=== PATIENT | female | born 1945 | race Caucasian/White ===

== ENCOUNTER 2023-01-02 03:53 | Inpatient (IN) | payer OTHER, SELFPAY ==
[2023-01-02] VITALS (23 sets, daily range): BP systolic 101–129; BP diastolic 66–82; PULSE 86–103; RESP 12–30; TEMP 36.2–36.9; O2SAT 86–99; BMI 29.2; BMI 28.1
--- NOTE | 2023-01-02 04:18 | CT_ITS ---
INDICATION: chest pain EXAMINATION: CTA CHEST, ABDOMEN AND PELVIS WITH CONTRAST TECHNIQUE: A CTA of the chest, abdomen, and pelvis is obtained with sagittal and coronal reconstructed MIP views. Three-dimensional surface rendered sequence of the thoracic and abdominal aorta was obtained. A radiation dose optimization technique was used for this scan. IV Contrast: IV 100mL Isovue-370 Oral contrast: None. RADIATION DOSAGE (If Supplied By Facility): CTDIvol = ( 17.45 ) mGy, DLP = ( 1018.37 ) mGycm COMPARISON: None, FINDINGS: ---CHEST: LUNGS: Hazy opacities throughout the lungs with septal thickening. Dependent atelectasis in the lower lobes. Consolidation in the right middle lobe Material within the trachea likely secretions. PLEURA: Small bilateral pleural effusions. No pneumothorax. PULMONARY VESSELS: No pulmonary emboli identified. MEDIASTINUM: Several mildly enlarged lymph nodes in the mediastinum and hilar regions. A few calcified lymph nodes in the mediastinum. HEART: Enlarged. Coronary artery calcifications. AORTA/GREAT VESSELS: Thoracic aorta is normal caliber. Maximal transverse diameter 3.3 cm at the ascending aorta. No aneurysm or dissection. BONES/SOFT TISSUES: No acute findings. OTHER: None. ---ABDOMEN AND PELVIS: AORTA: Normal caliber. No dissection. Atherosclerotic calcifications including at the origins of the major branches. CELIAC ARTERY: Unremarkable. SMA: Unremarkable. RENAL ARTERIES: Unremarkable. GINNY: Unremarkable. ILIAC ARTERIES: Unremarkable. RETROPERITONEUM: Unremarkable. LIVER: Unremarkable. GALLBLADDER/BILE DUCTS: Gallbladder is surgically absent. PANCREAS: Unremarkable. SPLEEN: Unremarkable. ADRENAL GLANDS: Unremarkable. KIDNEYS/URETERS: Unremarkable. BOWEL/MESENTERY: No bowel obstruction. APPENDIX: Not identified. PERITONEUM: No free air. No free fluid. REPRODUCTIVE ORGANS: Unremarkable. BLADDER: Unremarkable. BONES/SOFT TISSUES: No acute abnormality. OTHER: None. CT/CTA Chst, Abd, Pel W and/or WO IMPRESSION: 1. No aortic aneurysm or dissection. 2. No evidence of pulmonary emboli. 3. Findings consistent with pulmonary edema with small bilateral pleural effusions. 4. More focal consolidation right middle lobe suggest possible superimposed pneumonia. CT imaging follow-up recommended after treatment in 6-8 weeks to confirm resolution. 5. No acute intra-abdominal findings. Electronically Signed: Lizz Robert MD at 6:18 EST ,
[2023-01-02] MEDS: 0.9% Normal Saline (500mL Bag) 500 ML 999 ML IV (04:43)
[2023-01-02] MEDS: Morphine 2 MG/ML Syringe IV (04:44)
[2023-01-02] MEDS: Ondansetron 4 MG/2 ML Vial IV (04:44)
[2023-01-02 04:56] LABS: Absolute Lymphocyte Count 2.14 X10^3/uL (0.83-4.51); Absolute Neutrophil Count 14.4 X10^3/uL (2.0-7.7); Basophil# 0.05 X10^3/uL; Basophil% 0.3 % (0-1); Eosinophil# 0.07 X10^3/uL; Eosinophils% 0.4 % (0-5); Hematocrit 40.5 % (37-47); Hemoglobin 13.4 g/dL (12.0-15.0); Lymphocyte # 2.14 X10^3/ul (0.83-4.51); Mean Corp Hgb Conc 33.1 g/dL (32-36); Mean Corpuscular Hgb 30.7 pg (27.0-32.0); Mean Corpuscular Volume 92.9 fL (81-99); Mean Platelet Vol. 10.5 fl (6.2-12.0); Monocyte# 1.02 X10^3/uL; Monocyte% 5.7 % (0-10); NRBC Flagged by Analyzer 0 % (0-5); Neutrophil # 14.39 X10^3/uL (2.7-7.7); Platelet Count 330 K/mm3 (150-450); RBC Distribution Width CV 12.6 % (11.6-14.6); RBC Distribution Width SD 43.1 fl (35.1-43.9); Red Blood Count 4.36 M/mm3 (4.2-5.4); White Blood Count 17.8 K/mm3 (4.4-11.0)
[2023-01-02 05:06] LABS: International Normalized Ratio 1.1; Partial Thromboplast Time 28.5 Seconds (24.1-36.2); Prothrombin Time (Protime)PT. 14.3 SECONDS (11.7-14.9)
[2023-01-02 05:25] LABS: BNP,B-Type NATRIURETIC PEPTIDE 279.2 pg/mL (0-100)
[2023-01-02 05:27] LABS: AST(SGOT) 29 U/L (15-37); Alanine Aminotransfer ALT/SGPT 37 U/L (13-56); Albumin, Serum 3.3 g/dL (3.2-5.0); Alkaline Phosphatase 114 U/L (45-117); Anion Gap 9 (5-15); BUN 17 mg/dL (7-18); BUN/Creat Ratio 23.2 RATIO (10-20); Bilirubin, Direct 0.23 mg/dL (0.00-0.30); Calcium,Total 9.3 mg/dL (8.5-10.1); Chloride 103 mmol/L (98-107); Creatinine, Serum 0.73 mg/dL (0.55-1.02); EST Glomerular Filtration Rate 82 mL/min (>60); Est Glom Filt Rate - Afr Amer 99 mL/min (>60); Estimated Creatinine Clearance 36.67 ml/min; Globulin 4.5 g/dL (2.2-4.2); Glucose 261 mg/dL (74-106); Lipase 22 U/L (13-75); Magnesium 1.8 mg/dL (1.6-2.6); Potassium 3.7 mmol/L (3.5-5.1); Protein, Total 7.8 g/dL (6.4-8.2); Sodium Level 137 mmol/L (136-145); Troponin-I HS 1739 pg/mL (3.0-54.0)
--- NOTE | 2023-01-02 05:55 | CPS ---
decreased fio2 50%
--- NOTE | 2023-01-02 06:08 | CPS ---
decreased fio2 to 40%
--- NOTE | 2023-01-02 06:09 | EX.ED.DYSGE1 ---
HPI History of Present Illness Chief Complaint: Chest Pain Informant: patient, spouse/S.O. and EMS Narrative Narrative: Patient is a 77-year-old female brought in by EMS secondary to chest pain. Patient and state that for the past 1 to 2 weeks she has had a cold. states that they were in [place] seeing family this past week and they drove home between the hours of 1 PM and 8 PM this evening. states they were walking in the house when the patient collapsed. Patient states that she did not pass out but fell/collapse because she was feeling weak. Has reports they gave her some time to see if rest would improve her symptoms and they did not do so and therefore called EMS. Patient complains of chest pain that begins around her upper abdomen and extends upward to the midline of the chest she reports feeling nauseous without vomiting as well as feeling short of breath. She denies any need for supplemental oxygen or history of lung disorder at home. Reportedly EMS gave 3 nitro without any symptom improvement for the patient [facility] Home Medications BLOOD SUGAR HARMONY 1 tab PO 1XD 01/02/23 [History Last Taken Unknown] glimepiride 2 mg tablet 2 mg PO BID 01/02/23 [History Last Taken Unknown] metformin 500 mg tablet 500 mg PO DAILY 01/02/23 [History Last Taken Unknown] metoprolol tartrate 25 mg tablet 25 mg PO BID 01/02/23 [History Last Taken Unknown] omeprazole 20 mg capsule,delayed release 20 mg PO DAILY 01/02/23 [History Last Taken Unknown] Allergy/AdvReac Type Severity Reaction Status Date / Time tetanus and diphtheria Allergy Swelling Verified 01/02/23 03:59 toxoids Social History Smoking Status: Never smoker [facility] [place] ED Constitutional Constitutional ED: Denies chills or fever(s) Eyes Eyes: Denies change in vision ENT ENT ED: Denies sore throat Cardiovascular Cardiovascular: Reports chest pain; Denies palpitations or racing heartbeat Respiratory/Chest Respiratory/Chest: Reports cough and dyspnea Gastrointestinal Gastrointestinal: Reports abdominal pain and nausea; Denies diarrhea or vomiting Genitourinary Genitourinary ED: Denies dysuria Musculoskeletal Musculoskeletal: Denies myalgias Integumentary Denies rash Neurologic Neurologic: Reports weakness; Denies headache(s) Hematologic/Lymphatic Hematologic/Lymphatic: Denies easy bleeding or easy bruising EXAM Physical Exam Const Vital Signs: 01/02/23 04:00 01/02/23 04:06 01/02/23 05:47 Temperature 97.1 F L 97.1 F L Temperature Source Temporal Temporal Pulse Rate 103 H 103 H 97 Respiratory Rate 16 16 26 H Blood Pressure 121/72 H 121/72 H Blood Pressure Mean 88 88 Pulse Ox 86 94 95 Oxygen Delivery Method Nasal Cannula Nasal Cannula Oxygen Flow Rate (L/min) 2 Fraction of Inspired Oxygen (FIO2) 60 01/02/23 05:55 01/02/23 06:07 Temperature Temperature Source Pulse Rate Respiratory Rate Blood Pressure Blood Pressure Mean Pulse Ox Oxygen Delivery Method Oxygen Flow Rate (L/min) Fraction of Inspired Oxygen (FIO2) 50 40 Positive well nourished and well developed General Appearance ED: well developed and pallor HEENT HEENT Narrative: Normocephalic atraumatic No tongue or lip swelling no oral lesions no airway edema or compromise Eyes PERRL and EOMs intact bilaterally General Eye ED: Yes pale conjunctiva; Negative for scleral icterus Neck supple and no JVD Neck Narrative: No nuchal rigidity or meningeal signs noted Chest Wall Chest Narrative: Patient has reproducible pain with palpation of the sternum however she states this pain is different than the pain that brought her into the ER. There is no bony deformity or crepitance noted Resp Resp Narrative: Patient is tachypneic with accessory muscle use. Breath sounds are diminished throughout with crackles in the bilateral bases Cardio regular rhythm Rate: tachycardic and other Other Details: Slightly tachycardic rate with regular rhythm. Radial and carotid pulses are equal and symmetric GI GI Narrative: Abdomen is soft but slightly distended with normal active bowel sounds. Patient has pain with palpation in the midepigastric region without voluntary guarding or rigidity No pulsatile mass or fluid wave No increased tympany noted Auscultation: normoactive bowel sounds Palpation: soft Extremity normal to inspection Extremity Narrative: No asymmetric edema no pitting edema negative Homans' sign bilaterally Neuro oriented x3 and CN's II-XII intact bilaterally Sensorium / Orientation: alert Psych Psych Narrative: Patient has a flat affect Skin no rashes or lesions noted Skin Narrative: Skin is pale in color capillary refill remains less than 3 seconds General Skin Exam: pallor MDM MDM MDM Narrative Medical decision making narrative: Patient presented to the ER normotensive but was slightly tachycardic and afebrile. Room air pulse ox was reportedly low at a 84% and patient had increased work of breathing with tachypnea and accessory muscle use and crackles on exam. She is extremely pale with pain occurring from the midepigastric to some of the chest and with her report of chest pain and recent travel there is concern for acute coronary syndrome versus saddle pulmonary embolus versus aortic dissection versus pneumonia versus pleural effusion versus pneumothorax versus pancreatitis as a cause of her symptoms. An EKG was obtained as she does have multiple risk factors of cardiovascular disease and it did show significant ST segment depression in multiple leads not obvious STEMI. As patient did have depression in leads V2 and V3 I did attempt a posterior EKG to assess for potential acute posterior FL but subsequent EKG did not show this. With concern for PE versus dissection a CTA was then obtained. CTA does not reveal obvious dissection or saddle PE but there is fluid was noted in the bilateral lung pineda concerning for pleural effusion versus pneumonia. Patient's white count is elevated at approximately 18 so lactic acid and blood cultures and procalcitonin were added. The patient's troponin elevated and came back at approximately 1800 and secondary to this the case was discussed with cardiology on-call Dr. Galan. At this time he recommends patient be placed on a heparin and nitro drip secondary to her pain and elevated troponin but with her complex case does not feel she needs to go emergently to [facility]. The patient was satting in the mid 90s on 2 L but began to drop her sats into the 70s and 80s despite nasal cannula oxygen so she was transitioned to BiPAP which improved her pulse ox and work of breathing. Medicine was contacted as patient will need a heparin and nitro drip as well as continued monitoring for potential heart cath or infection. Dr. Buitrago/hospitalist was contacted we discussed the case and he does agree to accept the patient to the ICU at this time. History & Record Review Discussion w/independent historian: Patient and Significant other Lab Data Attestation: I reviewed the patient's lab results. Labs: Laboratory Results - last 24 hr 01/02/23 04:25 WBC 17.8 H RBC 4.36 Hgb 13.4 Hct 40.5 MCV 92.9 MCH 30.7 MCHC 33.1 RDW Std Deviation 43.1 RDW Coeff of Rojas 12.6 Plt Count 330 MPV 10.5 Immature Gran % (Auto) 0.600 Neut % (Auto) 81.0 H Lymph % (Auto) 12.0 L Garvin % (Auto) 5.7 Eos % (Auto) 0.4 Baso % (Auto) 0.3 Absolute Neuts (auto) 14.4 H Absolute Lymphs (auto) 2.14 Nucleated RBC % 0 PT 14.3 INR 1.1 APTT 28.5 Sodium 137 Potassium 3.7 Chloride 103 Carbon Dioxide 25.0 Anion Gap 9 BUN 17 Creatinine 0.73 Estim Creat Clear Calc 36.67 Est GFR (MDRD) Af Amer 99 Est GFR (MDRD) Non-Af 82 BUN/Creatinine Ratio 23.2 H Glucose 261 H Calcium 9.3 Magnesium 1.8 Total Bilirubin 0.80 Direct Bilirubin 0.23 AST 29 ALT 37 Alkaline Phosphatase 114 Troponin I High Sens 1739 H* B-Natriuretic Peptide 279.2 H Total Protein 7.8 Albumin 3.3 Globulin 4.5 H Lipase 22 Management Discussion w/another healthcare provider: Hospitalist and Technical Specialist Critical Care Time Critical Care Time: Yes Critical care time (excluding procedures): Discussing w/Patient &/or Family/Hardboard Grinder, Discussing w/Consultants and - (Critical care time of 33 minutes) Discharge Plan Triage Chief Complaint: Chest Pain ED Provider: Marino Crabtree Dx/Rx/DC Orders Clinical Impression: Acute respiratory failure with hypoxia, Non-insulin dependent diabetes mellitus, Non-ST elevated myocardial infarction (non-STEMI), Hypertension Prescriptions: No Action omeprazole 20 mg capsule,delayed release(DR/EC) 20 mg PO DAILY metoprolol tartrate 25 mg tablet 25 mg PO BID glimepiride 2 mg tablet 2 mg PO BID Rx Instructions: 1 TAB WITH BREAKFAST, 1/2 TAB AT DINNER metformin 500 mg tablet 500 mg PO DAILY BLOOD SUGAR HARMONY 1 tab PO 1XD Rx Instructions: HERBAL SUPPLEMENT Primary Care Provider: Holland Recio Referrals: Holland Recio DO [Primary Care Provider] - Disposition Disposition: Acute Care Hospital [facility]
[2023-01-02] MEDS: Heparin Injection (Vial) 5,000 UNIT/ML VIAL 4000 UNIT IV (06:15)
[2023-01-02] MEDS: Nitroglycerin Infusion 250 ML 3 MG CONT INF (06:16)
[2023-01-02] MEDS: HEPARIN/D5w 25,000 UNITS 25,000 UNITS/250 ML IV.SOLN. 9 UNITS CONT INF (06:16)
--- NOTE | 2023-01-02 06:30 | HP.PCM.HOS_ITS ---
HPI - General General Date of Admission: 01/02/23 Date of Service: 01/02/23 Chief Complaint: Chest pain, shortness of breath HPI Narrative JUAN C TORRE, is a 77 F who presents to the emergency department with concerns of progressive shortness of breath, chest pain since last evening. CT was recently traveling back from [place] and felt extremely exhausted when she reached home. Per the she collapsed for a little bit, family thought that she was only trying to relax but there was no improvement in her energy levels. Over the last 2 weeks she has had symptoms of fatigue, occasional shortness of breath and cough. Has intermittent episodes of chest pain? Anginal symptoms. She was previously prescribed nitroglycerin sublingually about 2 weeks back for the same. Today at home she started noticing retrosternal sternal chest pain and took 2 doses of nitroglycerin sublingually but to no avail. At home she had difficulty lying flat and preferred to sit in a chair as laying flat was not her shortness of breath. In the emergency department she was hypoxic, satting in high 70s on 2 L of oxygen. There was no significant improvement in her saturation levels with inhaled oxygen and is presently on BiPAP therapy for her hypoxemia. Her EKG showed diffuse ST depression and majority of the leads and her high-sensitivity troponin is elevated. Based on this cardiology was consulted by ED and decision to start heparin and IV nitroglycerin was made. There is some improvement in her chest pain since the initiation of nitroglycerin and BiPAP. Over the last month her sugars are also not well-controlled. She is only on oral metformin and glimepiride for her diabetes. Yesterday her sugars noted at home were in the 130s. [facility] Home Medications BLOOD SUGAR HARMONY 1 tab PO 1XD 01/02/23 [History Last Taken Unknown] glimepiride 2 mg tablet 2 mg PO BID 01/02/23 [History Last Taken Unknown] metformin 500 mg tablet 500 mg PO DAILY 01/02/23 [History Last Taken Unknown] metoprolol tartrate 25 mg tablet 25 mg PO BID 01/02/23 [History Last Taken Unknown] omeprazole 20 mg capsule,delayed release 20 mg PO DAILY 01/02/23 [History Last Taken Unknown] Allergy/AdvReac Type Severity Reaction Status Date / Time tetanus and diphtheria Allergy Swelling Verified 01/02/23 03:59 toxoids Social History Smoking Status: Never smoker ROS Constitutional Constitutional: Reports change in weight, fatigue, malaise and weakness; Denies fever(s) Cardiovascular Cardiovascular: Reports chest pain, dyspnea on exertion, lightheadedness and o rthopnea Respiratory/Chest Respiratory/Chest: Reports cough, shortness of breath at rest and shortness of breath with exertion Gastrointestinal Gastrointestinal: Denies abdominal pain, coffee ground emesis, constipation, diarrhea, dyspepsia, hematemesis, hematochezia, loose stools, melena, nausea, vomiting or other Genitourinary Genitourinary: Denies burning urination, difficulty urinating, dysuria, hematuria, nocturia, urinary frequency, urinary hesitancy, urinary incontinence, urinary urgency or other Musculoskeletal Musculoskeletal: Denies arthralgias, back pain, joint pain, joint stiffness, marcos int swelling, myalgias, neck pain or other Neurologic Neurologic: Denies abnormal gait, abnormal speech, confusion, disequilibrium, dizziness, focal weakness, headache(s), numbness, paresthesias, seizure-like activity, seizures, syncope, tingling, tremor(s) or other Psychiatric Psychiatric: Denies anxiety, depression, homicidal ideation, suicidal ideation or other Vital Signs Vital Signs Vital Signs: 01/02/23 04:00 01/02/23 04:06 01/02/23 05:47 Temperature 97.1 F L 97.1 F L Temperature Source Temporal Temporal Pulse Rate 103 H 103 H 97 Respiratory Rate 16 16 26 H Blood Pressure 121/72 H 121/72 H Blood Pressure Mean 88 88 Blood Pressure Position Blood Pressure Location Pulse Ox 86 94 95 Oxygen Delivery Method Nasal Cannula Nasal Cannula Oxygen Flow Rate (L/min) 2 Fraction of Inspired Oxygen (FIO2) 60 01/02/23 05:55 01/02/23 06:16 01/02/23 06:07 Temperature Temperature Source Pulse Rate 102 H Respiratory Rate Blood Pressure 129/75 H Blood Pressure Mean 93 Blood Pressure Position Sitting Blood Pressure Location Right Arm Pulse Ox Oxygen Delivery Method Oxygen Flow Rate (L/min) Fraction of Inspired Oxygen (FIO2) 50 40 Weight Weight: 160 lb 4.417 oz Body Mass Index (BMI) 29.2 Physical Exam Const alert and oriented x3 Constitutional Narrative: Drowsy and lethargic HEENT normocephalic Resp Auscultation: rales bilateral Cardio regular rate GI normal to inspection, nondistended, normoactive bowel sounds, soft to palpation, non-tender, non-distended and hepatosplenomegaly Extremity normal to inspection Extremity Narrative: No pedal edema present Neuro oriented x3 Results Medical Records Data Attestation: I reviewed the patient's medical records Lab / Micro Data Attestation: I reviewed the patient's lab results. 01/02/23 04:25 01/02/23 04:25 Labs: Laboratory Results - last 24 hr 01/02/23 04:25: WBC 17.8 H, RBC 4.36, Hgb 13.4, Hct 40.5, MCV 92.9, MCH 30.7, MCHC 33.1, RDW Std Deviation 43.1, RDW Coeff of Rojas 12.6, Plt Count 330, MPV 10.5, Immature Gran % (Auto) 0.600, Neut % (Auto) 81.0 H, Lymph % (Auto) 12.0 L, [place] % (Auto) 5.7, Eos % (Auto) 0.4, Baso % (Auto) 0.3, Absolute Neuts (auto) 14.4 H, Absolute Lymphs (auto) 2.14, Nucleated RBC % 0, PT 14.3, INR 1.1, APTT 28.5, Sodium 137, Potassium 3.7, Chloride 103, Carbon Dioxide 25.0, Anion Gap 9, BUN 17, Creatinine 0.73, Estim Creat Clear Calc 36.67, Est GFR (MDRD) Af Amer 99, Est GFR (MDRD) Non-Af 82, BUN/Creatinine Ratio 23.2 H, Glucose 261 H, Calcium 9.3, Magnesium 1.8, Total Bilirubin 0.80, Direct Bilirubin 0.23, AST 29, ALT 37, Alkaline Phosphatase 114, Troponin I High Sens 1739 H*, B-Natriuretic P eptide 279.2 H, Total Protein 7.8, Albumin 3.3, Globulin 4.5 H, Lipase 22 Rhythm Strip Rhythm Strip: Sinus Rhythm Imagaing Radiology Impression Chest/Abdomen/Pelvis CTA 01/02/23 04:18 IMPRESSION: 1. No aortic aneurysm or dissection. 2. No evidence of pulmonary emboli. 3. Findings consistent with pulmonary edema with small bilateral pleural effusions. 4. More focal consolidation right middle lobe suggest possible superimposed pneumonia. CT imaging follow-up recommended after treatment in 6-8 weeks to confirm resolution. 5. No acute intra-abdominal findings. Electronically Signed: Lizz Robert MD at 6:18 EST , Assessment & Plan Assessment/Plan (1) Acute respiratory failure with hypoxia: PLAN: He presents with acute respiratory failure, in the setting of bilateral pulmonary edema and features of right middle lobe consolidation on CT scan. Has based on her symptoms ongoing for the last 2 weeks it is likely that she has community-acquired pneumonia that followed a viral infection. Will start her on BiPAP therapy, shift to ICU, bronchopulmonary hygiene, close monitoring of her vitals. (2) Non-ST elevated myocardial infarction (non-STEMI): PLAN: There is diffuse ST depression in all her leads, this is in the setting of pneumonia, but there seems to be an overlap with acute heart failure based on the bilateral pleural effusion, orthopnea. We would get echocardiogram to further evaluate. Cardiology has been consulted for need for any interventions. (3) Non-insulin dependent diabetes mellitus: PLAN: Based on the history blood sugars not well-controlled over the last month, would get A1c levels and start her on insulin sliding scale during her hospitalization. Will plan for endocrinology follow-up as an outpatient. (4) Right middle lobe pneumonia: QUALIFIERS: Pneumonia type: due to unspecified organism Qualified Code(s): J18.9 - Pneumonia, unspecified organism PLAN: The clinical history of fatigue, fever, progressive shortness of breath over 2 weeks is consistent with committee acquired pneumonia. She has right middle lobe consolidation on her CT scan. We will continue azithromycin plus ceftriaxone at this time. If there is no improvement but plan to escalate antibiotics to beta-lactam's.
[2023-01-02 06:36] LABS: Lactic Acid 1.9 mmol/L (0.4-1.9)
[2023-01-02] MEDS: Ceftriaxone 1 GM/50 ML BAG IV ×2 (06:44→21:06)
[2023-01-02 07:30] LABS: Base Excess -5 mmol/L (-2 to +2); Bicarbonate 19.9 mmol/L (22-26); Blood Gas Specimen Type ART; Comment 16/8; Mode BiLevel; O2 Delivery Device BiPAP; PO2 79 mmHG (75-100); SITE R Brach; SO2 96 % (95-99); Total Carbon Dioxide 21 mmol/L; pCO2 31.5 mmHg (35-45); pH 7.41 (7.35-7.45)
[2023-01-02 07:36] LABS: Procalcitonin 0.07 ng/mL (0.00-0.09)
[2023-01-02] MEDS: Azithromycin 500 MG in Dextrose 5%-Water (250mL Bag) 250 ML 250 MG IV ×2 (07:40→21:56)
--- NOTE | 2023-01-02 07:50 | NURSING ---
Pt. states she has no medical history. Pt. states she takes the current home medications but not sure why she takes them.
--- NOTE | 2023-01-02 08:33 | EX.PCM.CONCC ---
Assessment & Plan Assessment/Plan (1) Acute respiratory failure with hypoxia: (2) Right middle lobe pneumonia: QUALIFIERS: Pneumonia type: due to unspecified organism Qualified Code(s): J18.9 - Pneumonia, unspecified organism (3) Hypertension: QUALIFIERS: Hypertension type: primary hypertension Qualified Code(s): I10 - Essential (primary) hypertension (4) Non-ST elevated myocardial infarction (non-STEMI): PLAN: Plan RECOMMENDATIONS: 1. Continue empiric antibiotics pending cultures 2. Challenge with diuretics 3. Obtain echocardiogram 4. Continue nitroglycerin and heparin drips 5. Await cardiology recommendations 6. Continue BiPAP with sleep and rescue IMPRESSIONS: 1. Acute hypoxic respiratory failure Patient CT scan does show an area of increased density in the right middle lobe, but the majority of the CT scan is consistent with pulmonary edema. Patient does have a slightly elevated BNP. Unfortunately, there is no echocardiogram available for review. This will be ordered. Patient should continue on empiric antibiotics pending cultures given increased density in the right middle lobe until cultures are available. Will challenge patient with diuretics. Patient is on a heparin and nitroglycerin drip. Continue to wean supplemental oxygen as tolerated. Patient should likely continue with BiPAP with sleep and rescue during the day until condition stabilizes. Patient is clear that she does not want to be intubated. 2. Non-ST elevation KS Patient with significant elevation of troponins, but was found to be significantly hypoxic by EMS. It is unclear if this represents supply demand mismatch or an NSTEMI. Patient does have a clinical history consistent with possible NSTEMI. Cardiology has been consulted. Patient is currently on a nitroglycerin and heparin drip. Troponins will be trended. Echocardiogram has been ordered. Patient is on telemetry. 3. Diabetes mellitus/hypertension/GERD/advanced age Complicates care, management, recovery and prognosis. Okay to continue with beta-gemini for now. Monitor for blood sugar control with sliding scale insulin. Elevated blood sugars may be secondary to acute infection, but procalcitonin is low at this time. HPI Consult Data Date of Consult: 01/02/23 HPI Narrative Reason for Consultation: Hypoxic respiratory failure HPI Narrative: JUAN C TORRE is a 77 F, with past medical history listed below, who presents to [facility] 01/02[facility]2023 secondary to progressive chest pain. Patient reportedly has had some URI symptoms for the past 1 to 2 weeks with a cough productive of thick or green sputum. Patient states that this was very low in volume. Patient did not report any concomitant sinus congestion. Patient recently went to [place] for the holiday and upon returning home collapsed. Patient was reportedly profoundly weak, but did not have a loss of consciousness. Patient had reported the chest pain that was 7-8 out of 10 described as a heaviness with radiation to her right jaw and arm. Patient had reported some concomitant nausea, but no vomiting. Patient also reported feeling short of breath. Patient was given 3 nitro by EMS with no improvement, so was transported to the ER for evaluation. In the ER, patient was afebrile, but tachycardic at 103 bpm. Patient was noted to be 86% despite nasal cannula. Laboratory workup showed a white blood cell count of 17.8, hemoglobin of 13.4 and platelets of 330. Coagulation studies were within normal limits. Chemistries were relatively unremarkable except for a slightly elevated bicarbonate of 25 and a glucose of 261. Troponin was elevated at 1739 and BNP was elevated at 279. Liver studies were within normal limits. Cardiology was contacted and the patient was placed on a nitroglycerin drip and heparin. Given patient's oxygenation status, she was placed on BiPAP for short period of time. On arrival to the intensive care unit, patient had an ABG showing adequate oxygenation and ventilation. Patient was transitioned to 6 L nasal cannula. Patient is not hypotensive and no fevers have been noted. Patient has not had any significant cough. Patient denies any history of previous lung disorders. Patient states that she is not a smoker and does not use any inhalers. Patient has not seen a talent development specialist previously. Patient does state that she has had her gallbladder and appendix removed and did not require oxygen postoperatively. Patient does admit that she had a holiday meal, but states that she did not eat that much secondary to not feeling well. Patient has not had any significant lower extremity edema. Patient denies any trauma. Patient has noted that her blood sugars have trended up recently. Review of systems otherwise negative from a constitutional, HEENT, respiratory, cardiovascular, GI, genitourinary, musculoskeletal, skin, neurologic, psychiatric and hematologic system unless stated above. [facility] Medical History Pre-diabetes Home Medications BLOOD SUGAR HARMONY 1 tab PO 1XD 11/25/23 [History Last Taken Unknown] glimepiride 2 mg tablet 2 mg PO BID 01/02/23 [History Last Taken Unknown] metformin 500 mg tablet 500 mg PO DAILY 01/02/23 [History Last Taken Unknown] metoprolol tartrate 25 mg tablet 25 mg PO BID 01/02/23 [History Last Taken Unknown] omeprazole 20 mg capsule,delayed release 20 mg PO DAILY 01/02/23 [History Last Taken Unknown] Allergy/AdvReac Type Severity Reaction Status Date / Time tetanus and diphtheria Allergy Swelling Verified 01/02/23 03:59 toxoids Surgical History History of appendectomy Hx of cholecystectomy Social History Smoking Status: Never smoker ROS ROS Narrative See HPI Physical Exam Const alert and oriented x3 Constitutional Narrative: On nasal cannula during my evaluation. Periodic nonproductive cough noted General Appearance: Negative for in distress HEENT normocephalic and head/scalp atraumatic; Negative for moist oral mucous membranes Eyes PERRL, EOMs intact bilaterally and conjunctivae normal Neck full ROM Lymph Lymphatic: no lymphadenopathy noted Chest inspection of chest normal Resp Effort and Inspection: tachypneic Auscultation: rales diffuse; Negative for rhonchi or wheezes Cardio regular rhythm, S1 normal heart sound, S2 normal heart sound, no murmurs, no rub, no gallops and no JVD Rate: tachycardic GI normal to inspection, nondistended, normoactive bowel sounds Extremity General Extremity: edema; Negative for clubbing Skin no rashes or lesions noted Neuro oriented x3 and CN's II-XII intact bilaterally Psych cooperative and affect normal Medical Records Data Attestation: I reviewed the patient's medical records Medical records narrative: Patient does not have any previous echocardiogram or PFT Lab / Micro Data Attestation: I reviewed the patient's lab results. 01/02/23 04:25 01/02/23 04:25 Labs: Laboratory Results - last 24 hr 01/02/23 04:25: WBC 17.8 H, RBC 4.36, Hgb 13.4, Hct 40.5, MCV 92.9, MCH 30.7, MCHC 33.1, RDW Std Deviation 43.1, RDW Coeff of Rojas 12.6, Plt Count 330, MPV 10.5, Immature Gran % (Auto) 0.600, Neut % (Auto) 81.0 H, Lymph % (Auto) 12.0 L, [place] % (Auto) 5.7, Eos % (Auto) 0.4, Baso % (Auto) 0.3, Absolute Neuts (auto) 14.4 H, Absolute Lymphs (auto) 2.14, Nucleated RBC % 0, PT 14.3, INR 1.1, APTT 28.5, Sodium 137, Potassium 3.7, Chloride 103, Carbon Dioxide 25.0, Anion Gap 9, BUN 17, Creatinine 0.73, Estim Creat Clear Calc 36.67, Est GFR (MDRD) Af Amer 99, Est GFR (MDRD) Non-Af 82, BUN/Creatinine Ratio 23.2 H, Glucose 261 H, Calcium 9.3, Magnesium 1.8, Total Bilirubin 0.80, Direct Bilirubin 0.23, AST 29, ALT 37, Alkaline Phosphatase 114, Troponin I High Sens 1739 H*, B-Natriuretic Peptide 279.2 H, Total Protein 7.8, Albumin 3.3, Globulin 4.5 H, Lipase 22 01/02/23 05:30: Lactic Acid 1.9, Procalcitonin 0.07 ABG Data ABG results: ABG 01/02/23 07:26 Specimen Type ART Sample Site R Brach pH 7.41 Bicarbonate Actual 19.9 L Total CO2 21 Base Excess -5 L O2 Saturation 96 O2 % 40.0 ABG pCO2 31.5 L ABG pO2 79 Judah Test N/A O2 Delivery Device BiPAP Vent Mode BiLevel Clinical Comments 23/09 Attestation: I personally reviewed and interpreted this ABG as follows: (Fully compensated metabolic acidosis with increased AA gradient) Rhythm Strip Rhythm Strip: Sinus Rhythm Imagaing Radiology Impression Chest/Abdomen/Pelvis CTA 01/02/23 04:18 IMPRESSION: 1. No aortic aneurysm or dissection. 2. No evidence of pulmonary emboli. 3. Findings consistent with pulmonary edema with small bilateral pleural effusions. 4. More focal consolidation right middle lobe suggest possible superimposed pneumonia. CT imaging follow-up recommended after treatment in 6-8 weeks to confirm resolution. 5. No acute intra-abdominal findings. Electronically Signed: Lizz Robert MD at 6:18 EST , Charges/Coding Visit Charges Inpatient E&M: 05662 Init Hosp L3
--- NOTE | 2023-01-02 08:39 | ECHOCS_ITS ---
Reason For Study: CHF Procedure This was a 2D Doppler, Color Flow transthoracic echocardiogram. The study was technically difficult. Due to pneumonia. Contrast injection was performed. Exam performed portable in ICU/CCU. Left Ventricle Normal size and thickness. The left ventricular ejection fraction is 50 %. Diastolic function is indeterminate. Severe posterior hypokinesis to akinesis. Right Ventricle Normal right ventricle. Atria The left atrium is severely enlarged. Normal right atrium. Mitral Valve Moderate diffuse mitral valve thickening. Mild focal mitral valve calcification of the anterior leaflet. Mild (1+) mitral valve insufficiency. Tricuspid Valve Trivial tricuspid valve insufficiency. Unable to estimate RV systolic pressure due to insufficient tricuspid regurgitant envelope. Aortic Valve Moderate diffuse aortic valve calcification. Mild aortic stenosis. Pulmonic Valve The pulmonic valve is not well visualized. Great Vessels Normal sized aortic root. Pericardium/Pleural No pericardial effusion. Medication Diluted definity 4.0ml given slow IV push to enhance endocardial definition. MMode/2D Measurements & Calculations LVIDd: 5.1 cm IVSd: 1.1 cm LVOT diam: 2.2 cm LVIDs: 4.0 cm LVPWd: 1.1 cm RVDd: 2.9 cm FS: 21.0 % LVOT area: 3.7 cm2 Ao root diam: 2.7 cm LAV(MOD-bp): 80.5 ml LVAd ap4: 21.4 cm2 LAV(MOD-bp) Indexed: 47.1 ml/m2 LVLd ap4: 7.6 cm LAV(MOD-sp2): 76.7 ml EDV(MOD-sp4): 51.4 ml LAV(MOD-sp4): 67.4 ml EDV(sp4-el): 50.9 ml LVAs ap4: 13.1 cm2 LVLs ap4: 6.4 cm ESV(MOD-sp4): 22.6 ml ESV(sp4-el): 22.6 ml EF(MOD-sp4): 56.1 % EF(sp4-el): 55.6 % LVAd ap2: 18.5 cm2 SV(MOD-sp4): 28.8 ml SV(MOD-sp2): 24.9 ml LVLd ap2: 6.5 cm EDV(MOD-sp2): 46.2 ml EDV(sp2-el): 44.4 ml LVAs ap2: 12.3 cm2 LVLs ap2: 6.2 cm ESV(MOD-sp2): 21.3 ml ESV(sp2-el): 20.5 ml EF(MOD-sp2): 53.9 % SV(sp4-el): 28.3 ml LA dimension(2D): 5.1 cm LA A4 area: 19.7 cm2 TAPSE: 1.7 cm Time Measurements MV dec time: 0.11 sec Doppler Measurements & Calculations MV E max shaggy: 140.6 cm/sec Lat Peak E' Shaggy: 4.7 cm/sec Ao V2 max: 197.0 cm/sec MV A max shaggy: 124.8 cm/sec E/E' lat: 30.2 Ao max P.6 mmHg MV E/A: 1.1 Ao V2 mean: 147.3 cm/sec Ao mean P.5 mmHg Ao V2 VTI: 37.9 cm AV (velocity ratio): 0.31 FADUMO(I,D): 1.1 cm2 FADUMO(V,D): 1.2 cm2 LV V1 max: 65.1 cm/sec MR max shaggy: 442.5 cm/sec SV(LVOT): 43.5 ml LV V1 max P.7 mmHg MR max P.4 mmHg LV V1 mean P.87 mmHg MR mean shaggy: 341.8 cm/sec LV V1 mean: 43.7 cm/sec MR mean P.7 mmHg LV V1 VTI: 11.7 cm MR VTI: 150.4 cm PA V2 max: 66.7 cm/sec PA V2 mean: 48.9 cm/sec ECHO/Echo Complete W/ Contrast Interpretation Summary The left ventricular ejection fraction is 50 %. Diastolic function is indeterminate. Severe posterior hypokinesis to akinesis. Mild (1+) mitral valve insufficiency. Moderate diffuse aortic valve calcification. Mild aortic stenosis. The study was technically difficult. Ordering Physician: Andrade Mendoza Referring Physician: Holland Recio Performed By: Liliana Posey, RDCS, RVT
[2023-01-02 08:54] LABS: Hemoglobin A1c 10.9 % (3.8-5.6)
[2023-01-02 09:10] LABS: Troponin-I HS 1886 pg/mL (3.0-54.0)
[2023-01-02] MEDS: Furosemide 20 MG/2 ML VIAL IV (09:22)
--- NOTE | 2023-01-02 10:26 | PCM.PN.HOSP ---
Reason for Visit Reason for Visit: Diagnoses Non-ST elevation (NSTEMI) myocardial infarction (01/02/23) Pneumonia, unspecified organism (01/02/23) Acute respiratory failure with hypoxia (01/02/23) Objective Data Objective Data Vital Signs: Vital Signs Temp Pulse Resp BP Pulse Ox O2 Del Method O2 Flow Rate 97.1 F L 102 H 26 H 129/75 H 95 Nasal Cannula 2 01/02/23 04:06 01/02/23 06:16 01/02/23 05:47 01/02/23 06:16 01/02/23 05:47 01/02/23 04:06 01/02/23 04:06 FiO2 40 01/02/23 06:07 Oxygen Flow Rate (L/min) 2 Oxygen Delivery Method Nasal Cannula Weight: 160 lb 4.417 oz Body Mass Index (BMI) 29.2 Intake & Output: Intake and Output for Last 24 Hours 12/31/22 01/01/23 01/02/23 23:59 23:59 23:59 Intake Total 500 / 500 Balance 500 / 500 Lab / Micro Data 01/02/23 04:25 01/02/23 04:25 Labs: Laboratory Results - last 24 hr 01/02/23 04:25: WBC 17.8 H, RBC 4.36, Hgb 13.4, Hct 40.5, MCV 92.9, MCH 30.7, MCHC 33.1, RDW Std Deviation 43.1, RDW Coeff of Rojas 12.6, Plt Count 330, MPV 10.5, Immature Gran % (Auto) 0.600, Neut % (Auto) 81.0 H, Lymph % (Auto) 12.0 L, [place] % (Auto) 5.7, Eos % (Auto) 0.4, Baso % (Auto) 0.3, Absolute Neuts (auto) 14.4 H, Absolute Lymphs (auto) 2.14, Nucleated RBC % 0, PT 14.3, INR 1.1, APTT 28.5, Sodium 137, Potassium 3.7, Chloride 103, Carbon Dioxide 25.0, Anion Gap 9, BUN 17, Creatinine 0.73, Estim Creat Clear Calc 36.67, Est GFR (MDRD) Af Amer 99, Est GFR (MDRD) Non-Af 82, BUN/Creatinine Ratio 23.2 H, Glucose 261 H, Calcium 9.3, Magnesium 1.8, Total Bilirubin 0.80, Direct Bilirubin 0.23, AST 29, ALT 37, Alkaline Phosphatase 114, Troponin I High Sens 1739 H*, B-Natriuretic Peptide 279.2 H, Total Protein 7.8, Albumin 3.3, Globulin 4.5 H, Lipase 22 01/02/23 05:30: Lactic Acid 1.9 Radiography Diagnostic Testing: Radiology Impression Chest/Abdomen/Pelvis CTA 01/02/23 04:18 IMPRESSION: 1. No aortic aneurysm or dissection. 2. No evidence of pulmonary emboli. 3. Findings consistent with pulmonary edema with small bilateral pleural effusions. 4. More focal consolidation right middle lobe suggest possible superimposed pneumonia. CT imaging follow-up recommended after treatment in 6-8 weeks to confirm resolution. 5. No acute intra-abdominal findings. Electronically Signed: Lizz Robert MD at 6:18 EST Reading Location ID and State: [facility] / [place] Tel , Service support , Rhythm Strip Rhythm Strip: Sinus Rhythm Physical Exam Narrative Seen and examined. 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 Still short of breath but slightly better. Complain of chest tightness and pressure over anterior chest wall but denies chest congestion. Mild cough for 2 weeks. Denies smoking history of chronic lung disease. Denies chronic atherosclerotic heart disease/CHF or other heart disease. No fever Physical exam General: Alert, Oriented x3, Cooperative. Pale looking. Fatigue HEENT: Atraumatic, PERRLA, EOMI, Normocephalic Oral: No Gingival or Mucosal Lesions/ Ulcerations Neck: Supple, No JVD, Negative Carotid Bruits Lungs: Air entry diminished in bilateral lung bases. Coarse crepitations bilaterally in the lung spaces. Was on BiPAP currently on 6 L of oxygen. Cardiovascular: Regular rate, Regular Rhythm, Normal S1, Normal S2, systolic murmur right second ICS Abdomen: Bowel Sounds Present, Soft, Non Tender, Non-Distended : No renal angle tenderness. No suprapubic tenderness. Extremities: No edema, Capillary Refill Less than 3 Seconds Skin: No rashes, No breakdown Musculoskeletal: No Tenderness to Palpation of Joints or Extremities Neurological: Cranial nerves II-XII grossly intact, DTR 2+/4. No acute focal neurological deficit. Psych/Mental Status: Flat affect. Assessment & Plan Assessment/Plan (1) Acute respiratory failure with hypoxia: PLAN: 77-year-old female is being admitted in ICU, brought by EMS secondary to worsening SOB and chest pain since last evening chest pain. Over the last 2 weeks patient had symptoms of fatigue, occasional shortness of breath and cough. Earlier after long drive from [place], patient collapsed at home while they are walking. She did not pass out. Feeling generalized weakness. Patient had intermittent episodes of chest pain/anginal symptoms was prescribed nitroglycerin sublingual about 2 weeks back for the same. She took 2 nitroglycerin sublingual but without relief and also had difficulty laying flat. Mild nausea without vomiting mild shortness of breath no prior history of lung disease or supplemental oxygen use. As shortness of breath and hypoxia did not improve patient was put on BiPAP 1. Acute hypoxic respiratory failure due to bilateral pulmonary edema and pneumonia: CTh reviewed and shows bilateral pulmonary edema with mild pleural effusion and superimposed RML consolidation. ABG 7.4 on BiPAP 16/8 FiO2 40%. Has based on her symptoms ongoing for the last 2 weeks it is likely that she has community-acquired pneumonia that followed a viral infection. Patient was put on BiPAP, antibiotics and bronchopulmonary hygiene. Ceftriaxone and Zithromax. Laboratory Results 01/02/23 04:25: WBC 17.8 H, RBC 4.36, Hgb 13.4, Hct 40.5, MCV 92.9, MCH 30.7, MCHC 33.1, RDW Std Deviation 43.1, RDW Coeff of Rojas 12.6, Plt Count 330, MPV 10.5, Immature Gran % (Auto) 0.600, Neut % (Auto) 81.0 H, Lymph % (Auto) 12.0 L, [place] % (Auto) 5.7, Eos % (Auto) 0.4, Baso % (Auto) 0.3, Absolute Neuts (auto) 14.4 H, Absolute Lymphs (auto) 2.14, Nucleated RBC % 0, PT 14.3, INR 1.1, APTT 28.5, Sodium 137, Potassium 3.7, Chloride 103, Carbon Dioxide 25.0, Anion Gap 9, BUN 17, Creatinine 0.73, Estim Creat Clear Calc 36.67, Est GFR (MDRD) Af Amer 99, Est GFR (MDRD) Non-Af 82, BUN/Creatinine Ratio 23.2 H, Glucose 261 H, Calcium 9.3, Magnesium 1.8, Total Bilirubin 0.80, Direct Bilirubin 0.23, AST 29, ALT 37, Alkaline Phosphatase 114, Troponin I High Sens 1739 H*, B-Natriuretic Peptide 279.2 H, Total Protein 7.8, Albumin 3.3, Globulin 4.5 H, Lipase 22 01/02/23 05:30: Lactic Acid 1.9, Procalcitonin 0.07 01/02/23 07:26: Specimen Type ART, Sample Site R Brach, pH 7.41, Bicarbonate Actual 19.9 L, Total CO2 21, Base Excess -5 L, O2 Saturation 96, O2 % 40.0, ABG pCO2 31.5 L, ABG pO2 79, Judah Test N/A, O2 Delivery Device BiPAP, Vent Mode BiLevel, Clinical Comments 23/0901/02/23 08:26: Hemoglobin A1c 10.9 H, Troponin I High Sens 1886 H* (2) Non-ST elevated myocardial infarction (non-STEMI): PLAN: There is diffuse ST depression in all her leads, this is in the setting of pneumonia, but there seems to be an overlap with acute heart failure based on the bilateral pleural effusion, orthopnea. We would get echocardiogram to further evaluate. Cardiology has been consulted for need for any interventions. 01/02: Troponin high 1739 1886. On IV heparin drip. On aspirin. Metoprolol. (3) Non-insulin dependent diabetes mellitus: PLAN: Based on the history blood sugars not well-controlled over the last month, would get A1c levels and start her on insulin sliding scale during her hospitalization. Will plan for endocrinology follow-up as an outpatient. A1c is high 10.9%. (4) Right middle lobe pneumonia: QUALIFIERS: Pneumonia type: due to unspecified organism Qualified Code(s): J18.9 - Pneumonia, unspecified organism PLAN: The clinical history of fatigue, fever, progressive shortness of breath over 2 weeks is consistent with committee acquired pneumonia. She has right middle lobe consolidation on her CT scan. We will continue azithromycin plus ceftriaxone at this time. If there is no improvement but plan to escalate antibiotics to beta-lactam's. Charges/Coding Visit Charges Inpatient E&M: 07981 Subs Hosp L3
[2023-01-02] MEDS: Metoprolol Tartrate 25 MG Tablet PO ×2 (10:39→21:22)
[2023-01-02] MEDS: Pantoprazole Sodium 20 MG Tablet PO ×2 (10:39→21:22)
--- NOTE | 2023-01-02 10:41 | EKG12_ITS ---
Test Reason : STAT Blood Pressure : / mmHG Vent. Rate : 093 BPM Atrial Rate : 093 BPM P-R Int : 208 ms QRS Dur : 082 ms QT Int : 350 ms P-R-T Axes : 017 -46 020 degrees QTc Int : 435 ms Normal sinus rhythm Left anterior fascicular block Minimal voltage criteria for LVH, may be normal variant ( R in aVL ) Abnormal ECG When compared with ECG of 02-JAN-2023 04:25, MANUAL COMPARISON REQUIRED, DATA IS UNCONFIRMED Confirmed by STELLA ROCHE, FABRICE ([id number]), newspaper editor managing DUY MARTINEZ ([id number]) on 01/05/2023 7:55:05 AM Referred By: Confirmed By:FABRICE DOUGLAS MD
--- NOTE | 2023-01-02 11:15 | PCM.CONS.C ---
Assessment & Plan Assessment/Plan (1) Non-ST elevated myocardial infarction (non-STEMI): PLAN: Echocardiogram shows regional wall motion abnormality with posterior hypokinesis. Continue aspirin. Beta-blockers. Nitrates. Possible coronary angiography on Wednesday. (2) Pericardial rub: PLAN: No ECG evidence of pericarditis however history and presence of a pericardial friction rub leads to suspicion of myopericarditis in the differential diagnosis. Will increase aspirin dose to 650 mg 3 times daily. Add proton pump inhibitor for gastric protection. (3) Right middle lobe pneumonia: QUALIFIERS: Pneumonia type: due to unspecified organism Qualified Code(s): J18.9 - Pneumonia, unspecified organism PLAN: On antibiotics. HPI Consult Data Date of Consult: 01/02/23 HPI Narrative Reason for Consultation: Elevated troponin HPI Narrative: This lady has past medical history significant for diabetes mellitus. She presented to the emergency room after developing anterior chest pressure last night. According to her, there was some radiation to the left arm. Nitroglycerin was administered by the EMS however that did not relieve her discomfort. Presently her anterior chest pressure is resolved however she does complain of chest pain with breathing. Denies any previous history of heart disease. Per her, she has had a cold a couple of weeks ago. Since then she has been feeling fatigued and somewhat short of breath. Workup in the emergency room revealed elevated troponin. She also has had CT of her chest done. That showed right middle lobe consolidation. Bilateral pleural effusions. Coronary artery calcifications. [facility] Medical History Pre-diabetes Home Medications BLOOD SUGAR HARMONY 1 tab PO 1XD 01/02/23 [History Last Taken Unknown] glimepiride 2 mg tablet 2 mg PO BID 01/02/23 [History Last Taken Unknown] metformin 500 mg tablet 500 mg PO DAILY 01/02/23 [History Last Taken Unknown] metoprolol tartrate 25 mg tablet 25 mg PO BID 01/02/23 [History Last Taken Unknown] omeprazole 20 mg capsule,delayed release 20 mg PO DAILY 01/02/23 [History Last Taken Unknown] Allergy/AdvReac Type Severity Reaction Status Date / Time tetanus and diphtheria Allergy Swelling Verified 01/02/23 03:59 toxoids Surgical History History of appendectomy Hx of cholecystectomy Social History Smoking Status: Never smoker Physical Exam Narrative Comfortable. No apparent distress. Heart sounds 1 and 2 are noted. 2/6 systolic murmur at base. Friction rub is noted. Few basilar crepitations. Alert oriented x 3. No ankle edema noted. Risk Stratification Risk Stratification Applicable: No Objective Data Vital Signs: Vital Signs Temp Pulse Resp BP Pulse Ox O2 Del Method O2 Flow Rate 97.1 F L 96 30 H 129/75 H 93 Nasal Cannula 6 01/02/23 04:06 01/02/23 10:39 01/02/23 07:30 01/02/23 06:16 01/02/23 09:15 01/02/23 09:15 01/02/23 09:15 FiO2 40 01/02/23 07:10 Oxygen Flow Rate (L/min) 6 Oxygen Delivery Method Nasal Cannula Weight: 153 lb 14.122 oz Body Mass Index (BMI) 28.1 Intake & Output: Intake and Output for Last 24 Hours 12/31/22 01/01/23 01/02/23 23:59 23:59 23:59 Intake Total 550 / 550 Balance 550 / 550 Lab / Micro Data Attestation: I reviewed the patient's lab results. 01/02/23 04:25 01/02/23 04:25 Labs: Laboratory Results - last 24 hr 01/02/23 04:25: WBC 17.8 H, RBC 4.36, Hgb 13.4, Hct 40.5, MCV 92.9, MCH 30.7, MCHC 33.1, RDW Std Deviation 43.1, RDW Coeff of Rojas 12.6, Plt Count 330, MPV 10.5, Immature Gran % (Auto) 0.600, Neut % (Auto) 81.0 H, Lymph % (Auto) 12.0 L, [place] % (Auto) 5.7, Eos % (Auto) 0.4, Baso % (Auto) 0.3, Absolute Neuts (auto) 14.4 H, Absolute Lymphs (auto) 2.14, Nucleated RBC % 0, PT 14.3, INR 1.1, APTT 28.5, Sodium 137, Potassium 3.7, Chloride 103, Carbon Dioxide 25.0, Anion Gap 9, BUN 17, Creatinine 0.73, Estim Creat Clear Calc 36.67, Est GFR (MDRD) Af Amer 99, Est GFR (MDRD) Non-Af 82, BUN/Creatinine Ratio 23.2 H, Glucose 261 H, Calcium 9.3, Magnesium 1.8, Total Bilirubin 0.80, Direct Bilirubin 0.23, AST 29, ALT 37, Alkaline Phosphatase 114, Troponin I High Sens 1739 H*, B-Natriuretic Peptide 279.2 H, Total Protein 7.8, Albumin 3.3, Globulin 4.5 H, Lipase 22 01/02/23 05:30: Lactic Acid 1.9, Procalcitonin 0.07 01/02/23 08:26: Hemoglobin A1c 10.9 H, Troponin I High Sens 1886 H* ABG Data ABG results: ABG 01/02/23 07:26 Specimen Type ART Sample Site R Brach pH 7.41 Bicarbonate Actual 19.9 L Total CO2 21 Base Excess -5 L O2 Saturation 96 O2 % 40.0 ABG pCO2 31.5 L ABG pO2 79 Judah Test N/A O2 Delivery Device BiPAP Vent Mode BiLevel Clinical Comments 23/09 Rhythm Strip Rhythm Strip: Sinus Rhythm Cardiology Labs/Tests 01/02/23 04:25: WBC 17.8 H, RBC 4.36, Hgb 13.4, Hct 40.5, MCV 92.9, MCH 30.7, MCHC 33.1, Plt Count 330, MPV 10.5, Immature Gran % (Auto) 0.600, Neut % (Auto) 81.0 H, Lymph % (Auto) 12.0 L, [place] % (Auto) 5.7, Eos % (Auto) 0.4, Baso % (Auto) 0.3, Absolute Neuts (auto) 14.4 H, Nucleated RBC % 0, PT 14.3, INR 1.1, APTT 28.5, Sodium 137, Potassium 3.7, Chloride 103, Carbon Dioxide 25.0, Anion Gap 9, BUN 17, Creatinine 0.73, Est GFR (MDRD) Af Amer 99, Est GFR (MDRD) Non-Af 82, BUN/Creatinine Ratio 23.2 H, Glucose 261 H, Calcium 9.3, Magnesium 1.8, Total Bilirubin 0.80, Direct Bilirubin 0.23, B-Natriuretic Peptide 279.2 H 01/02/23 05:30: Lactic Acid 1.9 01/02/23 07:26: pH 7.41, Bicarbonate Actual 19.9 L, Base Excess -5 L, O2 Saturation 96, ABG pCO2 31.5 L, ABG pO2 79, Judah Test N/A 01/02/23 08:26: Hemoglobin A1c 10.9 H Rhythm: EKG: Initial ECG showed normal sinus rhythm with anterolateral ST depressions. ECG done this morning shows resolution of ST segment depressions. ECHO: LVEF 50%. Mild aortic valve stenosis. Mild mitral valve insufficiency. No pericardial effusion. Stress Test: Cardiac Cath: PCI: CT Surgery: Holter monitor: EPS: PPM: CXR: Chest CT Scan: Radiography Diagnostic Testing: Radiology Impression Chest/Abdomen/Pelvis CTA 01/02/23 04:18 IMPRESSION: 1. No aortic aneurysm or dissection. 2. No evidence of pulmonary emboli. 3. Findings consistent with pulmonary edema with small bilateral pleural effusions. 4. More focal consolidation right middle lobe suggest possible superimposed pneumonia. CT imaging follow-up recommended after treatment in 6-8 weeks to confirm resolution. 5. No acute intra-abdominal findings. Electronically Signed: Lizz Robert MD at 6:18 EST , Echocardiogram 01/02/23 08:39 Interpretation Summary The left ventricular ejection fraction is 50 %. Diastolic function is indeterminate. Severe posterior hypokinesis to akinesis. Mild (1+) mitral valve insufficiency. Moderate diffuse aortic valve calcification. Mild aortic stenosis. The study was technically difficult. Ordering Physician: Andrade Mendoza Referring Physician: Holland Recio Performed By: Liliana Posey, PRETTYCS, RVT
--- NOTE | 2023-01-02 11:20 | CASEMGMT ---
SHWETA ROBERTSON Face to Face with patient for initial transition planning/care coordination assessment. RN CM introduced self and role at [facility]. Patient lying in bed, alert and oriented, at bedside. Patient willing to participate in assessment and is able to answer all questions appropriately. Care providers, pharmacy, and demographics verified. Patient wishes to discharge home, denies need for home health at discharge, will monitor progress with therapy. Patient states she has no further needs or concerns at this time. CM to follow for discharge planning needs that may arise. PCP: Almita Specialists: none Preferred Pharmacy: [facility] Insurance: [facility] Prescription Benefit: none Living Will/HPOA: none LNOK: Living Arrangements: Patient lives with and down syndrome daughter in a in-law suite at grandson home. Suite is single story with 4 steps and railing to enter. Patient is independent at home. Transportation: driving service DME/HHC: Patient has cane, raised toilet, and grab bars at home. Patient has access to solar electricity and generator. Will monitor for home oxygen, no preferences for DME. Will monitor for HHC pending progress with therapy. Disposition Plan: Patient to discharge home with family support and follow-up plans in place. Will monitor for HHC and home oxygen at discharge. Allison JOSHI, RN, CM
[2023-01-02 11:27] LABS: Erythrocyte Sedimentation Rate 34 mm/hr (0-30)
[2023-01-02 11:36] LABS: Troponin-I HS 4552 pg/mL (3.0-54.0)
[2023-01-02 13:03] LABS: Partial Thromboplast Time 100.3 Seconds (24.1-36.2)
[2023-01-02 13:12] LABS: Bacteria 0 SEEN /hpf (None Seen); Mucous, Urine 0 SEEN /hpf (<or=2+); Red Blood Cells-Urine 0 SEEN /hpf (0-5); Squamous Epithelial Cells - UA 0 SEEN /hpf (5-10); White Blood Cells 0 SEEN /hpf (0-5)
[2023-01-02 13:15] LABS: Color, Urine Yellow (Yellow); Glucose, Dipstick 1000 mg/dl (Normal); Ketone-Dipstick 15 mg/dl (Negative); Leukocyte Esterase-Dipstick Negative /ul (Negative); Nitrite-Dipstick Negative (Negative); Occult Blood-Urine Negative /ul (Negative); Protein-Dipstick Negative (Negative); Urine Bilirubin Dipstick Negative (Negative); Urine Clarity Clear (Clear); Urine Urobilinogen Normal (Normal)
[2023-01-02] MEDS: Aspirin 325 MG Tablet 650 MG PO ×2 (14:14→21:21)
[2023-01-02] MEDS: Nitroglycerin Oint 1 INCH PACKET TD ×2 (14:15→21:22)
[2023-01-02 16:41] LABS: Bedside Glucose 280 mg/dL (74-106)
[2023-01-02 20:28] LABS: Partial Thromboplast Time 57.1 Seconds (24.1-36.2)
[2023-01-02] MEDS: Atorvastatin Calcium 40 MG Tablet PO (21:22)
[2023-01-02 22:20] LABS: Bedside Glucose 269 mg/dL (74-106)
[2023-01-03] VITALS (13 sets, daily range): BP systolic 101–113; BP diastolic 55–72; PULSE 72–112; RESP 12–22; TEMP 36.1–37; O2SAT 89–98; BMI 24.7
[2023-01-03 02:11] LABS: Absolute Neutrophil Count 12.4 X10^3/uL (2.0-7.7); Basophil# 0.02 X10^3/uL; Basophil% 0.1 % (0-1); Eosinophil# 0.04 X10^3/uL; Eosinophils% 0.3 % (0-5); Hematocrit 35.8 % (37-47); Hemoglobin 11.9 g/dL (12.0-15.0); Lymphocyte % 14.5 % (19-41); Mean Corp Hgb Conc 33.2 g/dL (32-36); Mean Corpuscular Hgb 31.2 pg (27.0-32.0); Mean Corpuscular Volume 93.7 fL (81-99); Mean Platelet Vol. 9.7 fl (6.2-12.0); Monocyte# 1.08 X10^3/uL; Monocyte% 6.8 % (0-10); NRBC Flagged by Analyzer 0 % (0-5); Neutrophil # 12.38 X10^3/uL (2.7-7.7); Neutrophil % 77.9 % (47-70); Platelet Count 285 K/mm3 (150-450); RBC Distribution Width CV 12.8 % (11.6-14.6); RBC Distribution Width SD 43.9 fl (35.1-43.9); Red Blood Count 3.82 M/mm3 (4.2-5.4); White Blood Count 15.9 K/mm3 (4.4-11.0)
[2023-01-03 02:21] LABS: Partial Thromboplast Time 61.2 Seconds (24.1-36.2)
[2023-01-03 02:30] LABS: International Normalized Ratio 1.3; Prothrombin Time (Protime)PT. 16.3 SECONDS (11.7-14.9)
[2023-01-03 02:53] LABS: ALB/GLOB Ratio 0.6 RATIO (0.9-2.4); AST(SGOT) 97 U/L (15-37); Alanine Aminotransfer ALT/SGPT 116 U/L (13-56); Albumin, Serum 2.6 g/dL (3.2-5.0); Alkaline Phosphatase 140 U/L (45-117); Anion Gap 5 (5-15); BUN 16 mg/dL (7-18); BUN/Creat Ratio 19.9 RATIO (10-20); Bilirubin, Direct 0.21 mg/dL (0.00-0.30); Calcium,Total 8.9 mg/dL (8.5-10.1); Chloride 103 mmol/L (98-107); EST Glomerular Filtration Rate 73 mL/min (>60); Est Glom Filt Rate - Afr Amer 89 mL/min (>60); Estimated Creatinine Clearance 45.84 ml/min; Globulin 4.2 g/dL (2.2-4.2); Glucose 303 mg/dL (74-106); Magnesium 1.8 mg/dL (1.6-2.6); Potassium 3.4 mmol/L (3.5-5.1); Protein, Total 6.8 g/dL (6.4-8.2); Sodium Level 136 mmol/L (136-145)
[2023-01-03] MEDS: Nitroglycerin Oint 1 INCH PACKET TD ×3 (05:35→19:36)
[2023-01-03] MEDS: Aspirin 325 MG Tablet 650 MG PO ×3 (05:35→19:36)
[2023-01-03 06:44] LABS: Bedside Glucose 257 mg/dL (74-106)
[2023-01-03] MEDS: Pantoprazole Sodium 20 MG Tablet PO ×2 (08:37→19:40)
[2023-01-03] MEDS: Metoprolol Tartrate 25 MG Tablet PO ×2 (08:38→19:35)
[2023-01-03] MEDS: Ceftriaxone 1 GM/50 ML BAG IV ×2 (08:49→19:50)
[2023-01-03 08:51] LABS: Partial Thromboplast Time 48.9 Seconds (24.1-36.2)
[2023-01-03] MEDS: HEPARIN/D5w 25,000 UNITS 25,000 UNITS/250 ML IV.SOLN. 8 UNITS CONT INF (09:35)
--- NOTE | 2023-01-03 09:54 | PN.HOSP_ITS ---
Reason for Visit Reason for Visit: Diagnoses Essential (primary) hypertension (01/02/23) Non-ST elevation (NSTEMI) myocardial infarction (01/02/23) Pneumonia, unspecified organism (01/02/23) Acute respiratory failure with hypoxia (01/02/23) Other cardiac sounds (01/02/23) Objective Data Objective Data Vital Signs: Vital Signs Temp Pulse Resp BP Pulse Ox O2 Del Method O2 Flow Rate 98.5 F 92 14 109/55 L 94 Nasal Cannula 2 01/03/23 08:32 01/03/23 08:38 01/03/23 08:32 01/03/23 08:38 01/03/23 08:32 01/03/23 08:32 01/03/23 07:13 FiO2 40 01/03/23 07:12 Oxygen Flow Rate (L/min) 2 Oxygen Delivery Method Nasal Cannula Weight: 135 lb 9.349 oz Body Mass Index (BMI) 24.7 Intake & Output: Intake and Output for Last 24 Hours 01/01/23 01/02/23 01/03/23 23:59 23:59 23:59 Intake Total 1479.82 / 1479.82 261.82 / 261.82 Output Total 600 / 600 200 / 200 Balance 879.82 / 879.82 61.82 / 61.82 Lab / Micro Data 01/03/23 02:00 01/03/23 02:00 Labs: Laboratory Results - last 24 hr 01/02/23 11:00: ESR 34 H, Troponin I High Sens 4552 H* 01/02/23 12:32: APTT 100.3 H* 01/02/23 13:00: Urine Color Yellow, Urine Clarity Clear, Urine pH 5.0, Ur Specific [place] 1.010, Urine Protein Negative, Urine Glucose (UA) 1000 H, Urine Ketones 15 H, Urine Occult Blood Negative, Urine Nitrite Negative, Urine Bilirubin Negative, Urine Urobilinogen Normal, Ur Leukocyte Esterase Negative, Urine RBC 0 SEEN, Urine WBC 0 SEEN, Ur Squamous Epith Cells 0 SEEN, Urine B acteria 0 SEEN, Urine Mucus 0 SEEN 01/02/23 16:11: POC Glucose 280 H 01/02/23 20:03: APTT 57.1 H, Antibody Screen NEGATIVE 01/02/23 22:00: POC Glucose 269 H 01/03/23 02:00: WBC 15.9 H, RBC 3.82 L, Hgb 11.9 L, Hct 35.8 L, MCV 93.7, MCH 31.2, MCHC 33.2, RDW Std Deviation 43.9, RDW Coeff of [place]jas 12.8, Plt Count 285, MPV 9.7, Immature Gran % (Auto) 0.400, Neut % (Auto) 77.9 H, Lymph % (Auto) 14.5 L, [place] % (Auto) 6.8, Eos % (Auto) 0.3, Baso % (Auto) 0.1, Absolute Neuts (auto) 12.4 H, Absolute Lymphs (auto) 2.30, Nucleated RBC % 0, PT 16.3 H, INR 1.3, APTT 61.2 H, Sodium 136, Potassium 3.4 L, Chloride 103, Carbon Dioxide 28.0, Anion Gap 5, BUN 16, Creatinine 0.80, Estim Creat Clear Calc 45.84, Est GFR (MDRD) Af Amer 89, Est GFR (MDRD) Non-Af 73, BUN/Creatinine Ratio 19.9, Glucose 303 H, Calcium 8.9, Phosphorus 3.0, Magnesium 1.8, Total Bilirubin 0.70, Direct Bilirubin 0.21, AST 97 H, ALT 116 H, Alkaline Phosphatase 140 H, Total Protein 6.8, Albumin 2.6 L, Globulin 4.2, Albumin/Globulin Ratio 0.6 L 01/03/23 06:26: POC Glucose 257 H 01/03/23 07:56: APTT 48.9 H Radiography Diagnostic Testing: Radiology Impression Echocardiogram 01/02/23 08:39 Interpretation Summary The left ventricular ejection fraction is 50 %. Diastolic function is indeterminate. Severe posterior hypokinesis to akinesis. Mild (1+) mitral valve insufficiency. Moderate diffuse aortic valve calcification. Mild aortic stenosis. The study was technically difficult. Ordering Physician: Andrade Mendoza Referring Physician: Holland Recio Performed By: Kalpesh, Liliana, RDCS, RVT Rhythm Strip Rhythm Strip: Sinus Rhythm Physical Exam Narrative Seen and examined. Patient did not feel well on BiPAP last night but currently she is not hypoxic pulse ox 92% on room air. No respiratory distress. No chest pain. No fever Physical exam General: Alert, Oriented x3, Cooperative. Pale looking. Recent onset of fatigue HEENT: Atraumatic, PERRLA, EOMI, Normocephalic Oral: No Gingival or Mucosal Lesions/ Ulcerations Neck: Supple, No JVD, Negative Carotid Bruits Lungs: Air entry diminished in bilateral lung bases. Coarse crepitations bilaterally in the lung spaces. No respiratory distress. Cardiovascular: Regular rate, Regular Rhythm, Normal S1, Normal S2, systolic murmur right second ICS. No pericardial rub Abdomen: Bowel Sounds Present, Soft, Non Tender, Non-Distended : No renal angle tenderness. No suprapubic tenderness. Extremities: No edema, Capillary Refill Less than 3 Seconds Skin: No rashes, No breakdown Musculoskeletal: No Tenderness to Palpation of Joints or Extremities Neurological: Cranial nerves II-XII grossly intact, DTR 2+/4. No acute focal neurological deficit. Psych/Mental Status: Flat affect. Assessment & Plan Assessment/Plan (1) Acute respiratory failure with hypoxia: PLAN: 77-year-old female is being admitted in ICU, brought by EMS secondary to worsening SOB and chest pain since last evening chest pain. Over the last 2 weeks patient had symptoms of fatigue, occasional shortness of breath and cough. Earlier after long drive from [place], patient collapsed at home while they are walking. She did not pass out. Feeling generalized weakness. Patient had intermittent episodes of chest pain/anginal symptoms was prescribed nitroglycerin sublingual about 2 weeks back for the same. She took 2 nitroglycerin sublingual but without relief and also had difficulty laying flat. Mild nausea without vomiting mild shortness of breath no prior history of lung disease or supplemental oxygen use. As shortness of breath and hypoxia did not improve patient was put on BiPAP 1. Acute hypoxic respiratory failure due to bilateral pulmonary edema and pneumonia: CTh reviewed and shows bilateral pulmonary edema with mild pleural effusion and superimposed RML consolidation. ABG 7.4 on BiPAP 16/8 FiO2 40%. Has based on her symptoms ongoing for the last 2 weeks it is likely that she has community-acquired pneumonia that followed a viral infection. Patient was put on BiPAP, antibiotics and bronchopulmonary hygiene. Ceftriaxone and Zithromax. 01/03: Hypoxia improved. Continue IV antibiotics. Pneumonia work-up pending. Blood cultures x2 pending. Laboratory Results 01/02/23 13:00: Urine RBC 0 SEEN, Urine WBC 0 SEEN, Ur Squamous Epith Cells 0 SEEN, Urine Bacteria 0 SEEN, Urine Mucus 0 SEEN 01/02/23 16:11: POC Glucose 280 H 01/02/23 20:03: APTT 57.1 H, Blood Type Pending, Antibody Screen NEGATIVE 01/02/23 22:00: POC Glucose 269 H 01/03/23 02:00: WBC 15.9 H, RBC 3.82 L, Hgb 11.9 L, Hct 35.8 L, MCV 93.7, MCH 31.2, MCHC 33.2, RDW Std Deviation 43.9, RDW Coeff of [place] 12.8, Plt Count 285, MPV 9.7, Immature Gran % (Auto) 0.400, Neut % (Auto) 77.9 H, Lymph % (Auto) 14.5 L, [place] % (Auto) 6.8, Eos % (Auto) 0.3, Baso % (Auto) 0.1, Absolute Neuts (auto) 12.4 H, Absolute Lymphs (auto) 2.30, Nucleated RBC % 0, PT 16.3 H, INR 1.3, APTT 61.2 H, Sodium 136, Potassium 3.4 L, Chloride 103, Carbon Dioxide 28.0, Anion Gap 5, BUN 16, Creatinine 0.80, Estim Creat Clear Calc 45.84, Est GFR (MDRD) Af Amer 89, Est GFR (MDRD) Non-Af 73, BUN/Creatinine Ratio 19.9, Glucose 303 H, Calcium 8.9, Phosphorus 3.0, Magnesium 1.8, Total Bilirubin 0.70, Direct Bilirubin 0.21, AST 97 H, ALT 116 H, Alkaline Phosphatase 140 H, Total Protein 6.8, Albumin 2.6 L, Globulin 4.2, Albumin/Globulin Ratio 0.6 L 01/03/23 06:26: POC Glucose 257 H 01/03/23 07:56: APTT 48.9 H 01/03/23 12:01: POC Glucose 283 H (2) Non-ST elevated myocardial infarction (non-STEMI): PLAN: Suspicion of pericarditis: Cardiology has been consulted for need for any interventions. There was ST elevation but not met criteria for pericarditis or NSTEMI but patient had pericardial rub. 01/02: Troponin high 1739 1886. On IV heparin drip. On aspirin. Metoprolol. 01/03: Non-STEMI. Plan for cardiac cath tomorrow AM. 2D echo reviewed. EF 50%, posterior wall severe hypokinesis or akinesis, mild MR. Mild . Evaluated by assistant professor of music. Patient also has pericardial rub although EKG not very suggestive of pericarditis. Yesterday started on aspirin for pericarditis. Started on colchicine today. (3) Non-insulin dependent diabetes mellitus: PLAN: Based on the history blood sugars not well-controlled over the last month, would get A1c levels and start her on insulin sliding scale during her hospitalization. Will plan for endocrinology follow-up as an outpatient. A1c is high 10.9%. (4) Right middle lobe pneumonia: QUALIFIERS: Pneumonia type: due to unspecified organism Qualified Code(s): J18.9 - Pneumonia, unspecified organism PLAN: The clinical history of fatigue, fever, progressive shortness of breath over 2 weeks is consistent with committee acquired pneumonia. She has right middle lobe consolidation on her CT scan. We will continue azithromycin plus ceftriaxone at this time. If there is no improvement but plan to escalate antibiotics to beta-lactam's. Charges/Coding Visit Charges Inpatient E&M: 15427 Subs Hosp L2
--- NOTE | 2023-01-03 10:19 | PCM.PN.CARD ---
Subjective Subjective Feeling much better. Still some chest pain with deep breathing or coughing but not as severe. Objective Data Vital Signs: Vital Signs Temp Pulse Resp BP Pulse Ox O2 Del Method O2 Flow Rate 98.5 F 92 14 109/55 L 89 Nasal Cannula 2 01/03/23 08:32 01/03/23 08:38 01/03/23 08:32 01/03/23 08:38 01/03/23 09:54 01/03/23 08:32 01/03/23 07:13 FiO2 40 01/03/23 07:12 Oxygen Flow Rate (L/min) 2 Oxygen Delivery Method Nasal Cannula Weight: 135 lb 9.349 oz Body Mass Index (BMI) 24.7 Intake & Output: Intake and Output for Last 24 Hours 01/01/23 01/02/23 01/03/23 23:59 23:59 23:59 Intake Total 1479.82 / 1479.82 261.82 / 261.82 Output Total 600 / 600 200 / 200 Balance 879.82 / 879.82 61.82 / 61.82 Lab / Micro Data 01/03/23 02:00 01/03/23 02:00 Labs: Laboratory Results - last 24 hr 01/02/23 11:00: ESR 34 H, Troponin I High Sens 4552 H* 01/02/23 12:32: APTT 100.3 H* 01/02/23 13:00: Urine Color Yellow, Urine Clarity Clear, Urine pH 5.0, Ur Specific [place] 1.010, Urine Protein Negative, Urine Glucose (UA) 1000 H, Urine Ketones 15 H, Urine Occult Blood Negative, Urine Nitrite Negative, Urine Bilirubin Negative, Urine Urobilinogen Normal, Ur Leukocyte Esterase Negative, Urine RBC 0 SEEN, Urine WBC 0 SEEN, Ur Squamous Epith Cells 0 SEEN, Urine Bacteria 0 SEEN, Urine Mucus 0 SEEN 01/02/23 16:11: POC Glucose 280 H 01/02/23 20:03: APTT 57.1 H, Antibody Screen NEGATIVE 01/02/23 22:00: POC Glucose 269 H 01/03/23 02:00: WBC 15.9 H, RBC 3.82 L, Hgb 11.9 L, Hct 35.8 L, MCV 93.7, MCH 31.2, MCHC 33.2, RDW Std Deviation 43.9, RDW Coeff of [place] 12.8, Plt Count 285, MPV 9.7, Immature Gran % (Auto) 0.400, Neut % (Auto) 77.9 H, Lymph % (Auto) 14.5 L, [place] % (Auto) 6.8, Eos % (Auto) 0.3, Baso % (Auto) 0.1, Absolute Neuts (auto) 12.4 H, Absolute Lymphs (auto) 2.30, Nucleated RBC % 0, PT 16.3 H, INR 1.3, APTT 61.2 H, Sodium 136, Potassium 3.4 L, Chloride 103, Carbon Dioxide 28.0, Anion Gap 5, BUN 16, Creatinine 0.80, Estim Creat Clear Calc 45.84, Est GFR (MDRD) Af Amer 89, Est GFR (MDRD) Non-Af 73, BUN/Creatinine Ratio 19.9, Glucose 303 H, Calcium 8.9, Phosphorus 3.0, Magnesium 1.8, Total Bilirubin 0.70, Direct Bilirubin 0.21, AST 97 H, ALT 116 H, Alkaline Phosphatase 140 H, Total Protein 6.8, Albumin 2.6 L, Globulin 4.2, Albumin/Globulin Ratio 0.6 L 01/03/23 06:26: POC Glucose 257 H 01/03/23 07:56: APTT 48.9 H Rhythm Strip Rhythm Strip: Sinus Rhythm Cardiology Labs/Tests 01/02/23 12:32: APTT 100.3 H* 01/02/23 13:00: Urine Color Yellow, Urine Clarity Clear, Urine pH 5.0, Ur Specific [place] 1.010, Urine Protein Negative, Urine Glucose (UA) 1000 H, Urine Ketones 15 H, Urine Occult Blood Negative, Urine Nitrite Negative, Urine Bilirubin Negative, Urine Urobilinogen Normal, Ur Leukocyte Esterase Negative, Urine RBC 0 SEEN, Urine WBC 0 SEEN 01/02/23 20:03: APTT 57.1 H 01/03/23 02:00: WBC 15.9 H, RBC 3.82 L, Hgb 11.9 L, Hct 35.8 L, MCV 93.7, MCH 31.2, MCHC 33.2, Plt Count 285, MPV 9.7, Immature Gran % (Auto) 0.400, Neut % (Auto) 77.9 H, Lymph % (Auto) 14.5 L, [place] % (Auto) 6.8, Eos % (Auto) 0.3, Baso % (Auto) 0.1, Absolute Neuts (auto) 12.4 H, Nucleated RBC % 0, PT 16.3 H, INR 1.3, APTT 61.2 H, Sodium 136, Potassium 3.4 L, Chloride 103, Carbon Dioxide 28.0, Anion Gap 5, BUN 16, Creatinine 0.80, Est GFR (MDRD) Af Amer 89, Est GFR (MDRD) Non-Af 73, BUN/Creatinine Ratio 19.9, Glucose 303 H, Calcium 8.9, Phosphorus 3.0, Magnesium 1.8, Total Bilirubin 0.70, Direct Bilirubin 0.21 01/03/23 07:56: APTT 48.9 H Rhythm: EKG: ECHO: Stress Test: Cardiac Cath: PCI: CT Surgery: Holter monitor: EPS: PPM: CXR: Chest CT Scan: Radiography Diagnostic Testing: Radiology Impression Echocardiogram 01/02/23 08:39 Interpretation Summary The left ventricular ejection fraction is 50 %. Diastolic function is indeterminate. Severe posterior hypokinesis to akinesis. Mild (1+) mitral valve insufficiency. Moderate diffuse aortic valve calcification. Mild aortic stenosis. The study was technically difficult. Ordering Physician: Andrade Mendoza Referring Physician: Holland Recio Performed By: Liliana Posey, [place], RVT Physical Exam Narrative Comfortable. No apparent distress. Heart sounds 1 and 2 are noted. 2/6 systolic murmur at base. No friction rub noted. Few basilar crepitations. Alert oriented x 3. No ankle edema noted. Assessment & Plan Assessment/Plan (1) Non-ST elevated myocardial infarction (non-STEMI): PLAN: Echocardiogram shows regional wall motion abnormality with posterior hypokinesis. Continue aspirin. Beta-blockers. Nitrates. Recommend coronary angiography. Risks benefits and alternatives discussed with the patient. She understand these and wishes to proceed. (2) Pericardial rub: PLAN: Resolved. Start on colchicine. (3) Right middle lobe pneumonia: QUALIFIERS: Pneumonia type: due to unspecified organism Qualified Code(s): J18.9 - Pneumonia, unspecified organism PLAN: On antibiotics.
--- NOTE | 2023-01-03 10:24 | PCM.PN.INT ---
Assessment & Plan Assessment/Plan (1) Acute respiratory failure with hypoxia: (2) Right middle lobe pneumonia: QUALIFIERS: Pneumonia type: due to unspecified organism Qualified Code(s): J18.9 - Pneumonia, unspecified organism (3) Hypertension: QUALIFIERS: Hypertension type: primary hypertension Qualified Code(s): I10 - Essential (primary) hypertension (4) Non-ST elevated myocardial infarction (non-STEMI): PLAN: Plan RECOMMENDATIONS: 1. Likely discontinue antibiotics at 48 hours 2. Continue diuretics 3. Await heart cath 4. Nitroglycerin and heparin drips per cardiology 5. Await cardiology recommendations 6. Walking oximetry prior to discharge IMPRESSIONS: 1. Acute hypoxic respiratory failure Patient CT scan does show an area of increased density in the right middle lobe, but the majority of the CT scan is consistent with pulmonary edema. Patient does have a slightly elevated BNP. Echocardiogram is suggestive of an NSTEMI and pulmonary edema as an etiology. Likely okay to discontinue antibiotics at 48 hours if cultures negative. Will challenge patient with diuretics if oxygenation remains marginal following heart cath. Nitropaste and currently off of drips. Walking oximetry prior to discharge. Patient is clear that she does not want to be intubated. If patient's hypoxia resolves with heart intervention, likely does not need an outpatient workup from a pulmonary perspective 2. Non-ST elevation FL Patient with significant elevation of troponins, but was found to be significantly hypoxic by EMS. It is unclear if this represents supply demand mismatch or an NSTEMI. Patient does have a clinical history consistent with NSTEMI. Cardiology is consulted. Patient is currently on a nitroglycerin. Echocardiogram is suggestive of an inferior FL as an etiology. Patient is on telemetry. 3. Diabetes mellitus/hypertension/GERD/advanced age Complicates care, management, recovery and prognosis. Okay to continue with beta-gemini for now. Monitor for blood sugar control with sliding scale insulin. Hemoglobin A1c is significantly elevated and patient would benefit from outpatient optimization of cardiac function. Elevated blood sugars may be secondary to acute infection, but procalcitonin is low at this time. Likely discontinue antibiotics at 48 hours. Subjective Subjective Patient subjectively feels much improved compared to yesterday. Patient states lower extremity edema is gone. Patient is not having conversational dyspnea per the . Patient is denying any chest pain at this time. Objective Data Objective Data Vital Signs: Vital Signs Temp Pulse Resp BP Pulse Ox O2 Del Method O2 Flow Rate 36.9 C 92 14 109/55 L 89 Nasal Cannula 2 01/03/23 08:32 01/03/23 08:38 01/03/23 08:32 01/03/23 08:38 01/03/23 09:54 01/03/23 08:32 01/03/23 07:13 FiO2 40 01/03/23 07:12 Oxygen Flow Rate (L/min) 2 Oxygen Delivery Method Nasal Cannula Weight: 61.5 kg Body Mass Index (BMI) 24.7 Intake & Output: Intake and Output for Last 24 Hours 01/01/23 01/02/23 01/03/23 23:59 23:59 23:59 Intake Total 1479.82 / 1479.82 261.82 / 261.82 Output Total 600 / 600 200 / 200 Balance 879.82 / 879.82 61.82 / 61.82 Lab / Micro Data Attestation: I reviewed the patient's lab results. 01/03/23 02:00 01/03/23 02:00 Labs: Laboratory Results - last 24 hr 01/02/23 11:00: ESR 34 H, Troponin I High Sens 4552 H* 01/02/23 12:32: APTT 100.3 H* 01/02/23 13:00: Urine Color Yellow, Urine Clarity Clear, Urine pH 5.0, Ur Specific [place] 1.010, Urine Protein Negative, Urine Glucose (UA) 1000 H, Urine Ketones 15 H, Urine Occult Blood Negative, Urine Nitrite Negative, Urine Bilirubin Negative, Urine Urobilinogen Normal, Ur Leukocyte Esterase Negative, Urine RBC 0 SEEN, Urine WBC 0 SEEN, Ur Squamous Epith Cells 0 SEEN, Urine Bacteria 0 SEEN, Urine Mucus 0 SEEN 01/02/23 16:11: POC Glucose 280 H 01/02/23 20:03: APTT 57.1 H, Antibody Screen NEGATIVE 01/02/23 22:00: POC Glucose 269 H 01/03/23 02:00: WBC 15.9 H, RBC 3.82 L, Hgb 11.9 L, Hct 35.8 L, MCV 93.7, MCH 31.2, MCHC 33.2, RDW Std Deviation 43.9, RDW Coeff of Rojas 12.8, Plt Count 285, MPV 9.7, Immature Gran % (Auto) 0.400, Neut % (Auto) 77.9 H, Lymph % (Auto) 14.5 L, [place] % (Auto) 6.8, Eos % (Auto) 0.3, Baso % (Auto) 0.1, Absolute Neuts (auto) 12.4 H, Absolute Lymphs (auto) 2.30, Nucleated RBC % 0, PT 16.3 H, INR 1.3, APTT 61.2 H, Sodium 136, Potassium 3.4 L, Chloride 103, Carbon Dioxide 28.0, Anion Gap 5, BUN 16, Creatinine 0.80, Estim Creat Clear Calc 45.84, Est GFR (MDRD) Af Amer 89, Est GFR (MDRD) Non-Af 73, BUN/Creatinine Ratio 19.9, Glucose 303 H, Calcium 8.9, Phosphorus 3.0, Magnesium 1.8, Total Bilirubin 0.70, Direct Bilirubin 0.21, AST 97 H, ALT 116 H, Alkaline Phosphatase 140 H, Total Protein 6.8, Albumin 2.6 L, Globulin 4.2, Albumin/Globulin Ratio 0.6 L 01/03/23 06:26: POC Glucose 257 H 01/03/23 07:56: APTT 48.9 H Radiography Diagnostic Testing: Radiology Impression Echocardiogram 01/02/23 08:39 Interpretation Summary The left ventricular ejection fraction is 50 %. Diastolic function is indeterminate. Severe posterior hypokinesis to akinesis. Mild (1+) mitral valve insufficiency. Moderate diffuse aortic valve calcification. Mild aortic stenosis. The study was technically difficult. Ordering Physician: Andrade Mendoza Referring Physician: Holland Recio Performed By: Liliana Posey, RDCS, RVT Rhythm Strip Rhythm Strip: Sinus Rhythm Rate: 84 Physical Exam Const alert, oriented x3 and no apparent distress Constitutional Narrative: Not on nasal cannula during my evaluation. No cough noted during evaluation General Appearance: Negative for in distress HEENT normocephalic and head/scalp atraumatic; Negative for moist oral mucous membranes Eyes PERRL, EOMs intact bilaterally and conjunctivae normal Neck full ROM Lymph Lymphatic: no lymphadenopathy noted Chest inspection of chest normal Resp normal respiratory effort and no use of accessory muscles Auscultation: Negative for rales, rhonchi or wheezes Cardio regular rate, regular rhythm, S1 normal heart sound, S2 normal heart sound, no murmurs, no rub, no gallops and no JVD GI normal to inspection, nondistended, normoactive bowel sounds Extremity General Extremity: edema bilateral (Trace) lower extremity; Negative for clubbing Skin no rashes or lesions noted Neuro oriented x3 and CN's II-XII intact bilaterally Psych cooperative and affect normal Charges/Coding Visit Charges Inpatient E&M: 21196 Subs Hosp L2
[2023-01-03] MEDS: Colchicine 0.6 MG TABLET PO ×2 (11:56→19:36)
[2023-01-03 12:19] LABS: Bedside Glucose 283 mg/dL (74-106)
[2023-01-03] MEDS: guaiFENesin 1,200 MG Tablet 1200 MG PO ×2 (14:55→19:36)
[2023-01-03 17:51] LABS: Bedside Glucose 258 mg/dL (74-106)
[2023-01-03] MEDS: Atorvastatin Calcium 40 MG Tablet PO (19:35)
[2023-01-03] MEDS: Azithromycin 500 MG in Dextrose 5%-Water (250mL Bag) 250 ML 250 MG IV (19:50)
[2023-01-04 03:00] VITALS: BP 113/66; PULSE 95; RESP 16; TEMP 36.8; O2SAT 95
[2023-01-04] MEDS: Nitroglycerin Oint 1 INCH PACKET TD (05:11)
[2023-01-04] MEDS: Aspirin 325 MG Tablet 650 MG PO (05:12)
[2023-01-04 05:34] LABS: Absolute Neutrophil Count 10.2 X10^3/uL (2.0-7.7); Basophil# 0.03 X10^3/uL; Basophil% 0.2 % (0-1); Eosinophil# 0.07 X10^3/uL; Eosinophils% 0.5 % (0-5); Hematocrit 35.9 % (37-47); Hemoglobin 11.8 g/dL (12.0-15.0); Lymphocyte % 12.5 % (19-41); Mean Corp Hgb Conc 32.9 g/dL (32-36); Mean Corpuscular Hgb 30.5 pg (27.0-32.0); Mean Corpuscular Volume 92.8 fL (81-99); Mean Platelet Vol. 9.7 fl (6.2-12.0); Monocyte# 0.79 X10^3/uL; Monocyte% 6.2 % (0-10); NRBC Flagged by Analyzer 0 % (0-5); Neutrophil # 10.22 X10^3/uL (2.7-7.7); Neutrophil % 80.1 % (47-70); Platelet Count 304 K/mm3 (150-450); RBC Distribution Width CV 12.6 % (11.6-14.6); RBC Distribution Width SD 42.8 fl (35.1-43.9); Red Blood Count 3.87 M/mm3 (4.2-5.4); White Blood Count 12.8 K/mm3 (4.4-11.0)
[2023-01-04 06:00] VITALS: BMI 28.3
[2023-01-04 06:06] LABS: Anion Gap 6 (5-15); BUN 15 mg/dL (7-18); BUN/Creat Ratio 22.5 RATIO (10-20); Chloride 105 mmol/L (98-107); Creatinine, Serum 0.67 mg/dL (0.55-1.02); EST Glomerular Filtration Rate 91 mL/min (>60); Est Glom Filt Rate - Afr Amer 110 mL/min (>60); Estimated Creatinine Clearance 36.67 ml/min; Glucose 248 mg/dL (74-106); Potassium 3.6 mmol/L (3.5-5.1); Sodium Level 139 mmol/L (136-145)
--- NOTE | 2023-01-04 06:15 | EKG12_ITS ---
Test Reason : AM EKG Blood Pressure : / mmHG Vent. Rate : 099 BPM Atrial Rate : 099 BPM P-R Int : 210 ms QRS Dur : 082 ms QT Int : 340 ms P-R-T Axes : 042 -41 096 degrees QTc Int : 436 ms Sinus rhythm with 1st degree A-V block Left axis deviation ST & T wave abnormality, consider lateral ischemia Abnormal ECG When compared with ECG of 02-JAN-2023 10:47, MANUAL COMPARISON REQUIRED, DATA IS UNCONFIRMED Confirmed by STELLA ROCHE, FABRICE ([id number]), social media editor DUY MARTINEZ ([id number]) on 01/05/2023 7:58:10 AM Referred By: DR ESCOBAR Confirmed By:FABRICE DOUGLAS MD
[2023-01-04 07:37] VITALS: O2SAT 93
--- NOTE | 2023-01-04 07:40 | PN.CC_ITS ---
Assessment & Plan Assessment/Plan (1) Acute respiratory failure with hypoxia: (2) Right middle lobe pneumonia: QUALIFIERS: Pneumonia type: due to unspecified organism Qualified Code(s): J18.9 - Pneumonia, unspecified organism (3) Hypertension: QUALIFIERS: Hypertension type: primary hypertension Qualified Code(s): I10 - Essential (primary) hypertension (4) Non-ST elevated myocardial infarction (non-STEMI): PLAN: Plan RECOMMENDATIONS: 1. Likely discontinue antibiotics once culture negative 2. Consider dose of diuretics following heart cath 3. Await heart cath 4. Nitroglycerin per cardiology 5. Await cardiology recommendations 6. Walking oximetry prior to discharge IMPRESSIONS: 1. Acute hypoxic respiratory failure Patient CT scan does show an area of increased density in the right middle lobe, but the majority of the CT scan is consistent with pulmonary edema. Patient does have a slightly elevated BNP. Echocardiogram is suggestive of an NSTEMI and pulmonary edema as an etiology. Likely okay to discontinue antibiotics at 48 hours if cultures negative given negative procalcitonin and positive rhinovirus. Will challenge patient with diuretics if oxygenation remains marginal following heart cath. Nitropaste and currently off of drips. Walking oximetry prior to discharge. Patient is clear that she does not want to be intubated. If patient's hypoxia resolves with heart intervention, likely does not need an outpatient workup from a pulmonary perspective 2. Non-ST elevation [place] Patient with significant elevation of troponins, but was found to be significantly hypoxic by EMS. It is unclear if this represents supply demand mismatch or an NSTEMI. Patient does have a clinical history consistent with NSTEMI. Cardiology is consulted. Patient is currently on a nitroglycerin. Ech ocardiogram is suggestive of an inferior [place] as an etiology. Patient is on telemetry. 3. Diabetes mellitus/hypertension/GERD/advanced age Complicates care, management, recovery and prognosis. Okay to continue with beta-gemini for now. Monitor for blood sugar control with sliding scale insulin. Hemoglobin A1c is significantly elevated and patient would benefit fro m outpatient optimization of cardiac function. Subjective Subjective Patient did okay overnight. Patient with no real complaints this morning. Patient did have to be placed on supplemental oxygen with sleep. Patient is n ervous anticipating heart cath this morning. Patient still has an intermittent cough. Objective Data Objective Data Vital Signs: Vital Signs Temp Pulse Resp BP Pulse Ox O2 Del Method O2 Flow Rate 36.8 C 95 16 113/66 95 Nasal Cannula 2 01/04/23 03:00 01/04/23 03:00 01/04/23 03:00 01/04/23 03:00 01/04/23 03:00 01/04/23 03:00 01/04/23 03:00 FiO2 40 01/03/23 07:12 Oxygen Flow Rate (L/min) 2 Oxygen Delivery Method Nasal Cannula Weight: 70.1 kg Body Mass Index (BMI) 28.3 Intake & Output: Intake and Output for Last 24 Hours 01/02/23 01/03/23 01/04/23 23:59 23:59 23:59 Intake Total 1479.82 / 1479.82 1176.82 / 1176.82 100 / 100 Output Total 600 / 600 200 / 200 300 / 300 Balance 879.82 / 879.82 976.82 / 976.82 -200 / -200 Lab / Micro Data Attestation: I reviewed the patient's lab results. 01/04/23 05:20 01/04/23 05:20 Labs: Laboratory Results - last 24 hr 01/03/23 07:56: APTT 48.9 H 01/03/23 12:01: POC Glucose 283 H 01/03/23 17:32: POC Glucose 258 H 01/04/23 05:20: WBC 12.8 H, RBC 3.87 L, Hgb 11.8 L, Hct 35.9 L, MCV 92.8, MCH 30.5, MCHC 32.9, RDW Std Deviation 42.8, RDW Coeff of Rojas 12.6, Plt Count 304, M PV 9.7, Immature Gran % (Auto) 0.500, Neut % (Auto) 80.1 H, Lymph % (Auto) 12.5 L, [place] % (Auto) 6.2, Eos % (Auto) 0.5, Baso % (Auto) 0.2, Absolute Neuts (auto) 10.2 H, Absolute Lymphs (auto) 1.60, Nucleated RBC % 0, Sodium 139, Potassium 3.6, Chloride 105, Carbon Dioxide 28.0, Anion Gap 6, BUN 15, Creatinine 0.67, Estim Creat Clear Calc 36.67, Est GFR (MDRD) Af Amer 110, Est GFR (MDRD) Non-Af 91, BUN/Creatinine Ratio 22.5 H, Glucose 248 H, Calcium 9.0 Micro: Microbiology 01/03/23 15:05 Mucosa - Nose Coronavirus COVID-19 PCR - Final 01/03/23 17:54 Urine, Clean Catch Streptococcus pneumoniae Antigen (M - Final 01/03/23 17:54 Urine, Clean Catch Legionella Antigen - Final 01/03/23 15:05 Mucosa - Nasopharyngeal Respiratory Panel (PCR) - Final Rhinovirus Rhythm Strip Rhythm Strip: Sinus Rhythm Rate: 95 Physical Exam Const alert, oriented x3 and no apparent distress Constitutional Narrative: On nasal cannula during my evaluation. No cough noted during evaluation General Appearance: Negative for in distress HEENT normocephalic and head/scalp atraumatic; Negative for moist oral mucous membranes Eyes PERRL, EOMs intact bilaterally and conjunctivae normal Neck full ROM Lymph Lymphatic: no lymphadenopathy noted Chest inspection of chest normal Resp normal respiratory effort and no use of accessory muscles Auscultation: Negative for rales, rhonchi or wheezes Cardio regular rate, regular rhythm, S1 normal heart sound, S2 normal heart sound, no murmurs, no rub, no gallops and no JVD GI normal to inspection, nondistended, normoactive bowel sounds Extremity General Extremity: edema bilateral (Trace) lower extremity; Negative for clubbing Skin no rashes or lesions noted Neuro oriented x3 and CN's II-XII intact bilaterally Psych cooperative and affect normal Charges/Coding Visit Charges Inpatient E&M: 43336 Subs Hosp L2
[2023-01-04] MEDS: 0.9% Normal Saline (1000mL) 1,000 ML 15 ML IV (08:55)
[2023-01-04] MEDS: 0.9% Normal Saline (250mL Bag) 250 ML 15 ML IV (08:55)
--- NOTE | 2023-01-04 09:57 | PCM.PN.HOSP ---
Reason for Visit Reason for Visit: Diagnoses Essential (primary) hypertension (01/02/23) Non-ST elevation (NSTEMI) myocardial infarction (01/02/23) Pneumonia, unspecified organism (01/02/23) Acute respiratory failure with hypoxia (01/02/23) Other cardiac sounds (01/02/23) Objective Data Objective Data Vital Signs: Vital Signs Temp Pulse Resp BP Pulse Ox O2 Del Method O2 Flow Rate 98.2 F 95 16 113/66 93 Room Air 2 01/04/23 03:00 01/04/23 03:00 01/04/23 03:00 01/04/23 03:00 01/04/23 07:37 01/04/23 07:37 01/04/23 03:00 FiO2 40 01/03/23 07:12 Oxygen Flow Rate (L/min) 2 Oxygen Delivery Method Room Air Weight: 70.1 kg Body Mass Index (BMI) 28.3 Intake & Output: Intake and Output for Last 24 Hours 01/02/23 01/03/23 01/04/23 23:59 23:59 23:59 Intake Total 1479.82 / 1479.82 1176.82 / 1176.82 100 / 100 Output Total 600 / 600 200 / 200 300 / 300 Balance 879.82 / 879.82 976.82 / 976.82 -200 / -200 Lab / Micro Data 01/04/23 05:20 01/04/23 05:20 Labs: Laboratory Results - last 24 hr 01/03/23 12:01: POC Glucose 283 H 01/03/23 17:32: POC Glucose 258 H 01/04/23 05:20: WBC 12.8 H, RBC 3.87 L, Hgb 11.8 L, Hct 35.9 L, MCV 92.8, MCH 30.5, MCHC 32.9, RDW Std Deviation 42.8, RDW Coeff of Rojas 12.6, Plt Count 304, MPV 9.7, Immature Gran % (Auto) 0.500, Neut % (Auto) 80.1 H, Lymph % (Auto) 12.5 L, [place] % (Auto) 6.2, Eos % (Auto) 0.5, Baso % (Auto) 0.2, Absolute Neuts (auto) 10.2 H, Absolute Lymphs (auto) 1.60, Nucleated RBC % 0, Sodium 139, Potassium 3.6, Chloride 105, Carbon Dioxide 28.0, Anion Gap 6, BUN 15, Creatinine 0.67, Estim Creat Clear Calc 36.67, Est GFR (MDRD) Af Amer 110, Est GFR (MDRD) Non-Af 91, BUN/Creatinine Ratio 22.5 H, Glucose 248 H, Calcium 9.0 Micro: Microbiology 01/02/23 05:30 Blood Culture (Wb) - Anticubital Left Blood Culture - Preliminary No growth in 48 hours. 01/02/23 05:30 Blood Culture (Wb) - Right Hand Blood Culture - Preliminary No growth in 48 hours. 01/03/23 15:05 Mucosa - Nose Coronavirus COVID-19 PCR - Final 01/03/23 17:54 Urine, Clean Catch Streptococcus pneumoniae Antigen (M - Final 01/03/23 17:54 Urine, Clean Catch Legionella Antigen - Final 01/03/23 15:05 Mucosa - Nasopharyngeal Respiratory Panel (PCR) - Final Rhinovirus Rhythm Strip Rhythm Strip: Sinus Rhythm Rate: 95
--- NOTE | 2023-01-04 10:09 | PN_ITS ---
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 Recommend transfer for consideration for CABG. Discussed with Dr. Arias at [facility].
--- NOTE | 2023-01-04 10:10 | CL.D_ITS ---
Patient Name: JUAN C TORRE Study Date: 01/04/2023 Performing: Jen Galan MD Ht: 62 inches 157.48 cm : 1945 Wt: 154.54 lbs 70.1 kg Age: 77 Gender: female BSA: 1.71 PROCEDURE(S) PERFORMED [id number])[facility] CLINICAL PROFILE AND INDICATIONS Indications: ACS > 24 hrs Heart Failure: None Angina Classification Anginal Classification w/in 2 Weeks: CCS IV CAD Presentations: Non-STEMI. Symptom onset Date/Time: Time Not Available CONCLUSIONS Severe multivessel CAD including LMCA RECOMMENDATIONS Surgery consult for coronary revascularization DESCRIPTION OF PROCEDURE The patient arrived to the procedure lab. The risks and benefits of the procedure as well as a full description of our services here and current unavailability of surgical backup were fully explained to the patient and/or their significant other prior to the catheterization. The Timeout was completed, verifying the correct patient and procedure. The patient's procedural site was prepped and draped in the usual fashion. Local anesthetic was given subcutaneously to right radial region with Lidocaine 2%. Using a modified Seldinger technique, arterial access was obtained via the right radial artery, a 6Fr sheath was inserted. Left Coronary Artery selective angiography was performed in multiple views using a 5 Fr. 4.0 [place] catheter. Right Coronary Artery selective angiography was then performed in multiple views using a 5 Fr. 4.0 [place] catheter.The arterial sheath was pulled and a TR Band was applied for hemostasis CORONARY ANGIOGRAPHY DOMINANCE: Right Dominant LEFT MAIN: Calcified 80% Ostial lesion in Left Main LEFT ANTERIOR DESCENDING ARTERY: LAD: Calcified 90% Proximal lesion in LAD DIAGONAL 1: Calcified 90% Proximal lesion in DIAG1 Calcified 90% Mid lesion in DIAG1 CIRCUMFLEX ARTERY: CIRCUMFLEX: Calcified 90% Ostial lesion in Circumflex RIGHT CORONARY ARTERY: RCA: Complex 100% Distal lesion in RCA Complex 100% Mid lesion in RCA COLLATERAL FLOW: Collateral flow from LAD Septal to Right PDA COMPLICATIONS No Complications PROCEDURE MEDICATIONS Versed 1 mg IV Fentanyl 25 mcg IV Oxygen: 3 L/min via nasal cannula Oxygen: 4 L/min via nasal cannula Heparin given IA 01/04/2023 09:43:10 Metoprolol 10 mg 01/04/2023 09:41:45 Verapamil 2.5mg, Ntg 200mcgs, 2000 units of Heparin given IA 01/04/2023 09:43:10 IV Bolus: .9 NaCl 250 ml total 01/04/2023 09:44:48 SUMMARY OF HEMODYNAMIC DATA Time AIR REST ECG 09:23:04 AO 112/70 (87) SA 09:45:00 AIR REST 10:02:37 Signed By Jen Galan MD On 01/04/2023 10:10:44 Signed By Jen Galan MD On 01/04/2023 10:09:34 Jen Galan MD
[2023-01-04 10:11] VITALS: PULSE 87; RESP 14; TEMP 36.9; O2SAT 95
[2023-01-04 10:30] VITALS: BP 98/68; PULSE 67; RESP 14; TEMP 37; O2SAT 92
--- NOTE | 2023-01-04 10:30 | DCINST_ITS ---
Discharge Instructions Diet Discharge Diet: - (DASH diet) Follow Up Care Test Results: Test results from this visit will be discussed in further detail at your follow- up appointment, if applicable. Discharge Plan Admission Admit Date/Time: 01/02/23 06:20 Primary Reason for Your Visit: Chest pain, respiratory distress Attending Provider: Kelly Srivastava Primary Care Provider: Holland Recio Consulting Providers: Pete Buitrago; Andrade Mendoza; Yasmany Tellez; Arias Rolle; Chip Hernandez; Madonna Sunshine NP; Willie Sanz Instructions Patient Instructions: CAD Discharge Orders/Prescriptions Prescriptions: No Action omeprazole 20 mg capsule,delayed release(DR/EC) 20 mg PO DAILY metoprolol tartrate 25 mg tablet 25 mg PO BID glimepiride 2 mg tablet 2 mg PO BID Rx Instructions: 1 TAB WITH BREAKFAST, 1/2 TAB AT DINNER metformin 500 mg tablet 500 mg PO DAILY BLOOD SUGAR HARMONY 1 tab PO 1XD Rx Instructions: HERBAL SUPPLEMENT Referrals / Follow Up: Holland Recio DO [Primary Care Provider] - Disposition Disposition (needs filled in before D/C Order can be placed): [facility]
--- NOTE | 2023-01-04 10:31 | PCM.DC.SUM ---
Providers Date of Admission: 01/02/23 Date of Discharge: 01/04/23 Primary Care Physician: Dr. Holland Recio, Consultations 01/02/23 06:45 Consult: Cardiology Routine Consulting Provider: Pete Buitrago Reason for Consult: NSTEMI EMERGENT Consult: Yes Notified: Yes Date Notified: 01/02/23 Time Notified: 06:45 Method of Notification: ED Physician Initiated Method of Consult:: Telemedicine 01/02/23 06:46 Consult: Chief Revenue Officer / Pulmonary Medicine Routine Consulting Provider: Pulmonary Medicine [facility] Reason for Consult: Acute on chronic respiratry failure EMERGENT Consult: Yes MD Notified: Yes Date Notified: 01/02/23 Time Notified: 06:46 Method of Notification: Text Reason For Visit: PNEUMONIA Diagnosis Discharge Diagnosis (1) Acute respiratory failure with hypoxia: Status: Acute Code(s): J96.01 - Acute respiratory failure with hypoxia (2) Hypertension: Status: Chronic Code(s): I10 - Essential (primary) hypertension Qualifiers: Hypertension type: primary hypertension Qualified Code(s): I10 - Essential (primary) hypertension (3) Non-ST elevated myocardial infarction (non-STEMI): Status: Acute Code(s): I21.4 - Non-ST elevation (NSTEMI) myocardial infarction (4) Multi-vessel coronary artery stenosis: Status: Acute Code(s): I25.10 - Atherosclerotic heart disease of [place] coronary artery without angina pectoris (5) Rhinovirus: Status: Acute Code(s): B34.8 - Other viral infections of unspecified site (6) Non-insulin dependent diabetes mellitus: Status: Acute (7) GERD (gastroesophageal reflux disease): Status: Acute Code(s): K21.9 - Gastro-esophageal reflux disease without esophagitis Plan #Acute hypoxic respiratory failure secondary to rhinovirus and pulmonary edema #NSTEMI with multivessel coronary artery disease #Type 2 diabetes mellitus #Hypertension #GERD Medications at Discharge Home Medications BLOOD SUGAR HARMONY 1 tab PO 1XD 01/02/23 glimepiride 2 mg tablet 2 mg PO BID 01/02/23 metformin 500 mg tablet 500 mg PO DAILY 01/02/23 metoprolol tartrate 25 mg tablet 25 mg PO BID 01/02/23 omeprazole 20 mg capsule,delayed release 20 mg PO DAILY 01/02/23 Hospital Course Procedures Cardiac catheterization and Transthoracic echo Summary of Care Provided Minutes Spent on Discharge: 35 Hospital Course: 69-year-old female history of GERD, hypertension, diabetes presented to [facility] 01/02/2023 with increasing shortness of breath and chest pain. She had CT with edema versus pneumonia, which ultimately seem to be pulmonary edema, and was acutely hypoxic requiring supplemental O2. [place] to be pulmonary edema patient also rhinovirus positive however with her chest pain she did have elevated troponin and was on heparin and nitroglycerin drips. Taken for cardiac cath 01/04/2023 and patient found to have multivessel disease and was transferred to [facility] for further work-up and management. Of note there also had been some concern for pericarditis and cardiology was on board and patient was on aspirin and started on colchicine on 01/03. On day of transfer patient not acutely having chest pain or shortness of breath as long as she was at rest however still not feeling well overall. Physical Exam Narrative General: Alert, oriented, no apparent distress HEENT: Atraumatic, normocephalic Eyes: Anicteric, normal conjunctiva, extraocular movements grossly intact Neck: Supple Respiratory: Normal respiratory effort Cardiovascular: Regular rate GI: Soft, nontender, nondistended Extremities: No edema Musculoskeletal: Moving all extremities Neuro: No overt focal neurological deficits Skin: No rashes appreciated Psych: Cooperative Weight / BMI Weight Weight: 70.1 kg Body Mass Index (BMI) 28.3 ABG / Lab / Microbiology Data 01/04/23 05:20 01/04/23 05:20 Laboratory: Laboratory Results - last 24 hr 01/03/23 12:01: POC Glucose 283 H 01/03/23 17:32: POC Glucose 258 H 01/04/23 05:20: WBC 12.8 H, RBC 3.87 L, Hgb 11.8 L, Hct 35.9 L, MCV 92.8, MCH 30.5, MCHC 32.9, RDW Std Deviation 42.8, RDW Coeff of Rojas 12.6, Plt Count 304, MPV 9.7, Immature Gran % (Auto) 0.500, Neut % (Auto) 80.1 H, Lymph % (Auto) 12.5 L, [place] % (Auto) 6.2, Eos % (Auto) 0.5, Baso % (Auto) 0.2, Absolute Neuts (auto) 10.2 H, Absolute Lymphs (auto) 1.60, Nucleated RBC % 0, Sodium 139, Potassium 3.6, Chloride 105, Carbon Dioxide 28.0, Anion Gap 6, BUN 15, Creatinine 0.67, Estim Creat Clear Calc 36.67, Est GFR (MDRD) Af Amer 110, Est GFR (MDRD) Non-Af 91, BUN/Creatinine Ratio 22.5 H, Glucose 248 H, Calcium 9.0 Microbiology: Microbiology 01/02/23 05:30 Blood Culture (Wb) - Anticubital Left Blood Culture - Preliminary No growth in 48 hours. 01/02/23 05:30 Blood Culture (Wb) - Right Hand Blood Culture - Preliminary No growth in 48 hours. 01/03/23 15:05 Mucosa - Nose Coronavirus COVID-19 PCR - Final 01/03/23 17:54 Urine, Clean Catch Streptococcus pneumoniae Antigen (M - Final 01/03/23 17:54 Urine, Clean Catch Legionella Antigen - Final 01/03/23 15:05 Mucosa - Nasopharyngeal Respiratory Panel (PCR) - Final Rhinovirus D/C Instructions Discharge Diet: - (DASH diet) Meaningful Use Info Meaningful Use Diagnoses (Choose all that apply): AMI AMI/Post PCI/Angioplasty Aspirin given w/in 24hrs of arrival?: Yes ASA at discharge?: Yes Statins at discharge?: Yes Jeremy/ARB at discharge?: No Reason Jeremy/ARB not ordered:: Not indicated (Pt just had LHC and found to have dz, pt transferred) Beta Jose Alfredo at discharge?: Yes Done w/ Acute IN measure.: Yes Documented LVEF (%): 50 Discharge Plan Admission Admit Date/Time: 01/02/23 06:20 Primary Reason for Your Visit: Chest pain, respiratory distress Attending Provider: Kelly Srivastava Primary Care Provider: Holland Recio Consulting Providers: Pete Buitrago; Andrade Mendoza; Yasmany Tellez; Arias Rolle; Chip Hernandez; Madonna Sunshine SENIOR BEHAVIORAL SCIENTIST; Willie Sanz Instructions Patient Instructions: CAD Discharge Orders/Prescriptions Prescriptions: No Action omeprazole 20 mg capsule,delayed release(DR/EC) 20 mg PO DAILY metoprolol tartrate 25 mg tablet 25 mg PO BID glimepiride 2 mg tablet 2 mg PO BID Rx Instructions: 1 TAB WITH BREAKFAST, 1/2 TAB AT DINNER metformin 500 mg tablet 500 mg PO DAILY BLOOD SUGAR HARMONY 1 tab PO 1XD Rx Instructions: HERBAL SUPPLEMENT Referrals / Follow Up: Holland Recio DO [Primary Care Provider] - Disposition Disposition (needs filled in before D/C Order can be placed): Acute Care Hospital Charges/Coding Visit Charges Inpatient E&M: 74944 Disch Hosp >30min
[2023-01-04] MEDS: Ceftriaxone 1 GM/50 ML BAG IV (10:46)
[2023-01-04] MEDS: guaiFENesin 1,200 MG Tablet 1200 MG PO (10:49)
[2023-01-04] MEDS: Colchicine 0.6 MG TABLET PO (10:49)
[2023-01-04] MEDS: Pantoprazole Sodium 20 MG Tablet PO (10:49)
[2023-01-04 11:47] LABS: Bedside Glucose 243 mg/dL (74-106)
== END 2023-01-04 12:29 | disposition short-term general hospital (02) | DRG 280 ==
LOC: ED 05:12 → ICU 06:21 → PCU 16:33
PROVIDERS: Internal Medicine; Internal Medicine Cardiovascular Disease; Admitting Provider Internal Medicine; Emergency Provider Emergency Medicine; PCP Family Medicine; Visit Provider Internal Medicine
DX: I21.4 Non-ST elevation (NSTEMI) myocardial infarction (principal); J96.01 Acute respiratory failure with hypoxia; J18.9 Pneumonia, unspecified organism; I31.9 Disease of pericardium, unspecified; I11.0 Hypertensive heart disease with heart failure; E11.65 Type 2 diabetes mellitus with hyperglycemia; I50.9 Heart failure, unspecified; I08.0 Rheumatic disorders of both mitral and aortic valves; K21.9 Gastro-esophageal reflux disease without esophagitis; I25.10 Atherosclerotic heart disease of native coronary artery without angina pectoris; B34.9 Viral infection, unspecified; Z79.84 Long term (current) use of oral hypoglycemic drugs; Z79.899 Other long term (current) drug therapy
CPT/HCPCS: 36415; 36600; 71275; 74174; 80048; 80053; 80076; 81001; 82803; 82962; 83036; 83605; 83690; 83735; 83880; 84100; 84145; 84484; 85025; 85610; 85652; 85730; 86850; 86900; 86901; 87040; 87449; 87633; 87635; 93005; 93306; 93454; 94002; 94003; 94668; 94762; 97162; 99152; 99252; 99285; J7030; J7040; J7050; Q9957; Q9967; A4216; C1769; C1894; C8929; G0463; J1940; J2405

== ENCOUNTER 2024-02-15 04:37 | Inpatient (IN) | payer OTHER, SELFPAY ==
[2024-02-15] VITALS (25 sets, daily range): BP systolic 99–147; BP diastolic 51–83; PULSE 87–114; RESP 21–38; TEMP 33.8–39; O2SAT 83–100; BMI 27.3; BMI 29.1
--- NOTE | 2024-02-15 04:57 | EKG12_ITS ---
Test Reason : DYSRHYTHMIA Blood Pressure : */* mmHG Vent. Rate : 93 BPM Atrial Rate : 93 BPM P-R Int : 186 ms QRS Dur : 100 ms QT Int : 366 ms P-R-T Axes : 4 -66 74 degrees QTcB Int : 455 ms Sinus rhythm with Premature atrial complexes Incomplete right bundle branch block Left anterior fascicular block Moderate voltage criteria for LVH, may be normal variant ( R in aVL , [place] product ) Nonspecific T wave abnormality Abnormal ECG Confirmed by Cachorro Niño ([id number]), editor news DUY MARTINEZ ([id number]) on 02/15/2024 1:19:50 PM Referred By: Confirmed By: Cachorro Niño
--- NOTE | 2024-02-15 04:57 | RAD_ITS ---
INDICATION: cough hypoxia EXAMINATION/TECHNIQUE: X-RAY - XR Chest 1 View COMPARISON: 01/02/[address] Findings: Single frontal view of the chest. LUNG PARENCHYMA: Severe diffuse patchy airspace disease in the right lower lung as well as left retrocardiac lung base. PLEURA: No pleural effusion. No pneumothorax. HEART/GREAT VESSELS: Cardiomediastinal silhouette is unremarkable. BONES: Osseous structures are unremarkable for age. Median sternotomy wires. RAD/Chest 1 View (Portable) IMPRESSION: Severe diffuse patchy airspace disease as above, to include pneumonia. Recommend follow-up to resolution as neoplastic process is not excluded. Electronically Signed: Jose F Cherry MD at 7:10 EST ,
--- NOTE | 2024-02-15 04:59 | EX.ED.DYSGE1 ---
HPI History of Present Illness Chief Complaint: Weakness Informant: patient, spouse/S.O. and EMS Narrative Narrative: 79-year-old female with history of diabetes coronary artery disease presenting to the emergency room with generalized weakness and cough. Patient states that on Wednesday she began to feel ill. She states that many family members have had the flu. She has developed a cough with sputum production, generalized weakness, decreased appetite. She denies fever. She has felt nauseated but no vomiting. She does not wear oxygen at home. decided to stay but during the night she began to be slightly confused and more weak being unable to put the pulse oximeter on her finger. At that point decided to call the ambulance where she was noted to be hypoxic in the 80s and was placed on nasal cannula. [facility] Medical History (Updated 02/15/24 @ 06:[address] Thiago Pressley DO) Coronary artery disease Non-insulin dependent diabetes mellitus Home Medications ?Medication ?Instructions ?Recorded ?Last Taken ?Type BLOOD SUGAR HARMONY 1 tab PO 1XD 01/02/23 Unknown History glimepiride 2 mg tablet 2 mg PO BID 01/02/23 Unknown History metformin 500 mg tablet 500 mg PO DAILY 01/02/23 Unknown History metoprolol tartrate 25 mg tablet 25 mg PO BID 01/02/23 Unknown History omeprazole 20 mg capsule,delayed 20 mg PO DAILY 01/02/23 Unknown History release aspirin 81 mg chewable tablet 1 tab PO DAILY 02/15/24 Unknown History Allergy/AdvReac Type Severity Reaction Status Date / Time tetanus and diphtheria Allergy Swelling Verified 02/15/24 04:39 toxoids Surgical History (Updated 02/15/24 @ 05:[address] Thiago Pressley DO) Hx of CABG History of appendectomy Hx of cholecystectomy Social History Smoking Status: Never smoker ROS ROS ED ROS Narrative Generalized weakness Constitutional Constitutional ED: Reports chills; Denies fever(s) or weight loss Eyes Eyes: Denies change in vision or diplopia ENT ENT ED: Reports rhinorrhea; Denies ear pain or sore throat Cardiovascular Cardiovascular: Denies chest pain, orthopnea, palpitations or racing heartbeat Respiratory/Chest Respiratory/Chest: Reports cough, dyspnea and dyspnea on exertion; Denies orthopnea Gastrointestinal Gastrointestinal: Reports nausea and other Details: Decreased appetite ; Denies abdominal pain, diarrhea or vomiting Genitourinary Genitourinary ED: Denies dysuria, hematuria or urinary frequency Musculoskeletal Musculoskeletal: Denies arthralgias or myalgias Integumentary Denies abscess or rash Neurologic Neurologic: Reports other Details: Confusion ; Denies headache(s) or weakness Psychiatric Psychiatric: Denies anxiety, depression, suicidal ideation or suicidal thoughts Endocrine Endocrinology: Denies polydipsia, polyphagia or polyuria Allergic/Immunologic Allergic/Immunologic ED: Denies mouth swelling, tongue swelling or urticaria EXAM Physical Exam Narrative Exam Narrative: Generally frail appearing elderly female laying in the bed. Const Vital Signs: 02/15/24 04:38 02/15/24 04:38 02/15/24 04:45 Temperature 97.4 F L 97.4 F L Temperature Source Oral Oral Pulse Rate 100 100 Respiratory Rate 25 H 22 H Respiratory Effort Short of Breath Respiratory Pattern Tachypnea Blood Pressure 105/51 L 105/51 L Blood Pressure Mean 69 69 Pulse Ox 83 90 Oxygen Delivery Method Room Air Nasal Cannula Oxygen Flow Rate (L/min) 4 02/15/24 05:12 02/15/24 05:21 02/15/24 05:45 Temperature 97.4 F L Temperature Source Oral Pulse Rate 95 95 Respiratory Rate 34 H 28 H Respiratory Effort Respiratory Pattern Tachypnea Blood Pressure 108/60 Blood Pressure Mean 76 Pulse Ox 91 94 Oxygen Delivery Method Nasal Cannula Nasal Cannula Oxygen Flow Rate (L/min) 6 6 02/15/24 06:38 Temperature Temperature Source Pulse Rate 96 Respiratory Rate 24 H Respiratory Effort Respiratory Pattern Blood Pressure 106/53 L Blood Pressure Mean 70 Pulse Ox 100 Oxygen Delivery Method Nasal Cannula Oxygen Flow Rate (L/min) 4 Positive well nourished and well developed General Appearance ED: well developed HEENT Reports normocephalic, head/scalp atraumatic and dry mucous membranes Mouth ED: Yes dry mucous membranes Mouth: dry mucous membranes Eyes PERRL and EOMs intact bilaterally Neck no lymphadenopathy, supple and no JVD Resp clear to auscultation bilaterally Resp Narrative: Quiet tachypnea. moist rhonchorous cough Cardio regular rate, regular rhythm and no murmurs GI normal to inspection, nondistended, normoactive bowel sounds and non-tender Palpation: soft Back/Spine no CVA tenderness and normal ROM Extremity normal to inspection General Extremety ED: Negative for edema General Extremity: Negative for edema Neuro oriented x3 and CN's II-XII intact bilaterally Sensorium / Orientation: alert Motor Exam: strength 5/5 throughout Psych mental status grossly normal Mood & Affect: Negative for depressed or tearful Skin no rashes or lesions noted and no wounds MDM MDM MDM Narrative Medical decision making narrative: Differential diagnosis includes but not limited to viral syndrome pneumonia bronchitis bronchospasm pleural effusion congestive heart failure dehydration acute kidney injury EKG shows a sinus rhythm with PACs and incomplete right bundle branch block noted. Ventricular rate of 93 bpm. My independent interpretation of the chest x-ray is right sided pulmonary infiltrates Patient's white count slightly elevated 12.1 platelet count of 185 hemoglobin 14.3. INR is 1.43 PTT 27.8 BUN of 31 with a creatinine 1.27 lactic acid is elevated at 3 which I believe is most indicative of her hypoxemia and work of breathing. Troponin is elevated at 290 which is probably type II. Total bilirubin is 1.8. A direct bilirubin was added on. COVID influenza and RSV swabs were obtained and is positive for influenza A. Patient received IV fluids and a DuoNeb. Continued supplemental oxygen. Rocephin and azithromycin were given. Plan will be admission to hospital. History & Record Review Discussion w/independent historian: EMS personnel, Patient and Significant other Additional record(s) reviewed:: Prior inpatient record, Prior ED visit and Prior labs Lab Data Attestation: I reviewed the patient's lab results. Labs: Laboratory Results - last 24 hr 02/15/24 05:11 WBC 12.1 H RBC 4.64 Hgb 14.3 Hct 42.6 MCV 91.8 MCH 30.8 MCHC 33.6 RDW Std Deviation 46.8 H RDW Coeff of Rojas 13.8 Plt Count 185 MPV 9.7 Immature Gran % (Auto) 0.200 Neut % (Auto) 90.6 H Lymph % (Auto) 6.4 L [place] % (Auto) 2.0 Eos % (Auto) 0.0 Baso % (Auto) 0.8 Absolute Neuts (auto) 10.9 H Absolute Lymphs (auto) 0.77 L Nucleated RBC % 0 Differential Comment SCANNED PT 17.7 H INR 1.4 APTT 27.8 Sodium 135 L Potassium 3.7 Chloride 101 Carbon Dioxide 26.0 Anion Gap 8 BUN 31 H Creatinine 1.27 H Estim Creat Clear Calc 31.89 Est GFR (MDRD) Af Amer 52 L Est GFR (MDRD) Non-Af 43 L BUN/Creatinine Ratio 24.4 H Glucose 159 H Lactic Acid 3.0 H* Calcium 9.6 Total Bilirubin 1.80 H AST 24 ALT 19 Alkaline Phosphatase 56 Troponin I High Sens 290 H* Total Protein 7.9 Albumin 3.5 Globulin 4.4 H Albumin/Globulin Ratio 0.8 L EKG Initial EKG: Attestation: I personally reviewed and interpreted this EKG as follows: Comments: sinus rhythm with PACs and incomplete right bundle branch block noted. Ventricular rate of 93 bpm Management Discussion w/another healthcare provider: Hospitalist Discharge Plan Dx/Rx/DC Orders Clinical Impression: Acute respiratory failure with hypoxia, Pneumonia, Elevated lactic acid level, Elevated troponin I level, Acute dehydration, Influenza A Disposition Disposition: [facility]
[2024-02-15] MEDS: Ipratropium/Albuterol Sulfate 3 ML AMPUL.NEB INHALATION ×3 (05:12→19:45)
[2024-02-15 05:23] LABS: Absolute Lymphocyte Count 0.77 X10^3/uL (0.83-4.51); Absolute Neutrophil Count 10.9 X10^3/uL (2.0-7.7); Basophil% 0.8 % (0-1); Hematocrit 42.6 % (37-47); Hemoglobin 14.3 g/dL (12.0-15.0); Lymphocyte # 0.77 X10^3/ul (0.83-4.51); Lymphocyte % 6.4 % (19-41); Mean Corp Hgb Conc 33.6 g/dL (32-36); Mean Corpuscular Hgb 30.8 pg (27.0-32.0); Mean Corpuscular Volume 91.8 fL (81-99); Mean Platelet Vol. 9.7 fl (6.2-12.0); Monocyte# 0.24 X10^3/uL; NRBC Flagged by Analyzer 0 % (0-5); Neutrophil # 10.93 X10^3/uL (2.7-7.7); Neutrophil % 90.6 % (47-70); POSITIVE MORPHOLOGY YES; Platelet Count 185 K/mm3 (150-450); RBC Distribution Width CV 13.8 % (11.6-14.6); RBC Distribution Width SD 46.8 fl (35.1-43.9); Red Blood Count 4.64 M/mm3 (4.2-5.4); White Blood Count 12.1 K/mm3 (4.4-11.0)
[2024-02-15 05:24] LABS: Differential Indicated SCAN CRITERIA MET
[2024-02-15] MEDS: Lactated Ringers 1,000 ML 999 ML IV (05:25)
[2024-02-15 05:31] LABS: International Normalized Ratio 1.4; Partial Thromboplast Time 27.8 Seconds (24.1-36.2); Prothrombin Time (Protime)PT. 17.7 SECONDS (11.7-14.9)
[2024-02-15 05:46] LABS: ALB/GLOB Ratio 0.8 RATIO (0.9-2.4); AST(SGOT) 24 U/L (15-37); Alanine Aminotransfer ALT/SGPT 19 U/L (13-56); Albumin, Serum 3.5 g/dL (3.2-5.0); Alkaline Phosphatase 56 U/L (45-117); Anion Gap 8 (5-15); BUN 31 mg/dL (7-18); BUN/Creat Ratio 24.4 RATIO (10-20); Calcium,Total 9.6 mg/dL (8.5-10.1); Chloride 101 mmol/L (98-107); Creatinine, Serum 1.27 mg/dL (0.55-1.02); EST Glomerular Filtration Rate 43 mL/min (>60); Est Glom Filt Rate - Afr Amer 52 mL/min (>60); Estimated Creatinine Clearance 31.89 ml/min; Globulin 4.4 g/dL (2.2-4.2); Glucose 159 mg/dL (74-106); Potassium 3.7 mmol/L (3.5-5.1); Protein, Total 7.9 g/dL (6.4-8.2); Sodium Level 135 mmol/L (136-145); Troponin-I HS 290 pg/mL (3.0-54.0)
[2024-02-15] MEDS: 0.9% Normal Saline (1000mL) 1,000 ML 999 ML IV (05:49)
[2024-02-15] MEDS: Ceftriaxone 1 GM/50 ML BAG IV (05:56)
[2024-02-15] MEDS: Azithromycin 500 MG in 0.9% Normal Saline (250mL Bag) 250 ML 250 MG IV (06:33)
[2024-02-15 06:42] LABS: Differential Comment SCANNED
--- NOTE | 2024-02-15 07:29 | HP.PCM.HOS_ITS ---
HPI - General General Date of Admission: 02/15/24 Date of Service: 02/15/24 Chief Complaint: shortness of breath HPI Narrative JUAN C TORRE, is a 79 F with a PMh as outlined who presents via the ED On 02/15/2024 with a complaint of generalised weakness nad a cough which started about 3 days prior to admission. She said several family members had similar complaints. Cough was productive of sputum and she also complained of nausea, weakness and decreased appetite. Family also noted she was getting more confused so they brought her in to the ED due to confusion. She had no other complaints and review of symptoms otherwise negative. Vitals in the ED were BP of 106/53, RR of 24, GA of 96 nad oxygen sats of 100% on room air. Temperature was 97.4F. CBC showed hb of 14.3, wbc of 12.1 and platelets of 185. INR was 1.4. Chemistry showed sodium of 135 and potassium of 3.7 with Cr of 1.27. Lactic acid was 3 and troponin was 290. Respiratory panel was positive for influenza. CXR showed severe diffuse patchy airspace disease. She is being admitted to be managed for hypoxia due to influenza infection. FOR[facility]LY [facility] Medical History Coronary artery disease Non-insulin dependent diabetes mellitus Home Medications ?Medication ?Instructions ?Recorded ?Last Taken ?Type BLOOD SUGAR HARMONY 1 tab PO 1XD supplement 01/02/23 Unknown History glimepiride 2 mg tablet 2 mg PO BID bs 01/02/23 Unknown History metformin 500 mg tablet 500 mg PO DAILY 01/02/23 Unknown History aspirin 81 mg chewable tablet 1 tab PO DAILY 02/15/24 Unknown History Allergy/AdvReac Type Severity Reaction Status Date / Time tetanus and diphtheria Allergy Swelling Verified 02/15/24 04:39 toxoids Surgical History Hx of CABG History of appendectomy Hx of cholecystectomy Social History Smoking Status: Never smoker ROS Constitutional Constitutional: Reports anorexia, chills, fatigue, fever(s), malaise and weakness Eyes Eyes: Denies change in vision ENT HEENT: Denies dysphagia, headache(s), sinus pressure or sore throat Cardiovascular Cardiovascular: Reports dyspnea on exertion; Denies chest pain, edema, lightheadedness, orthopnea, palpitations, paroxysmal nocturnal dyspnea, rapid heart rate or syncope Respiratory/Chest Respiratory/Chest: Reports cough, dyspnea, productive cough, shortness of breath at rest and shortness of breath with exertion; Denies excessive phlegm production, hemoptysis or wheezing Gastrointestinal Gastrointestinal: Reports nausea; Denies abdominal pain, constipation, diarrhea or vomiting Genitourinary Genitourinary: Denies burning urination or dysuria Musculoskeletal Musculoskeletal: Denies arthralgias Neurologic Neurologic: Reports confusion and dizziness; Denies focal weakness, headache(s), numbness or seizures Psychiatric Psychiatric: Denies anxiety or depression Hematologic/Lymphatic Hematologic/Lymphatic: Denies anemia Vital Signs Vital Signs Vital Signs: 02/15/24 04:38 02/15/24 04:38 02/15/24 04:45 Temperature 97.4 F L 97.4 F L Temperature Source Oral Oral Pulse Rate 100 100 Respiratory Rate 25 H 22 H Respiratory Effort Short of Breath Respiratory Pattern Tachypnea Blood Pressure 105/51 L 105/51 L Blood Pressure Mean 69 69 Pulse Ox 83 90 Oxygen Delivery Method Room Air Nasal Cannula Oxygen Flow Rate (L/min) 4 02/15/24 05:12 02/15/24 05:21 02/15/24 05:45 Temperature 97.4 F L Temperature Source Oral Pulse Rate 95 95 Respiratory Rate 34 H 28 H Respiratory Effort Respiratory Pattern Tachypnea Blood Pressure 108/60 Blood Pressure Mean 76 Pulse Ox 91 94 Oxygen Delivery Method Nasal Cannula Nasal Cannula Oxygen Flow Rate (L/min) 6 6 02/15/24 06:38 Temperature Temperature Source Pulse Rate 96 Respiratory Rate 24 H Respiratory Effort Respiratory Pattern Blood Pressure 106/53 L Blood Pressure Mean 70 Pulse Ox 100 Oxygen Delivery Method Nasal Cannula Oxygen Flow Rate (L/min) 4 Weight Weight: 149 lb 7.574 oz Body Mass Index (BMI) 27.3 Physical Exam Const alert and oriented x3 Constitutional Narrative: weak and frail Orientation / Consciousness: lethargic HEENT normocephalic, head/scalp atraumatic and hearing grossly normal bilaterally HEENT Narrative: dry oral mucosa Eyes PERRL, EOMs intact bilaterally and conjunctivae normal Neck no lymphadenopathy and supple Resp Resp Narrative: moderately diminished breath sounds bibasally, no wheezes or crackles. On 4L of oxygen by nasal canula Cardio regular rate, regular rhythm, S1 normal heart sound, S2 normal heart sound and no murmurs GI normal to inspection, nondistended, normoactive bowel sounds, soft to palpation, non-tender and non-distended Extremity normal to inspection, full ROM and no clubbing, cyanosis or edema Neuro oriented x3, CN's II-XII intact bilaterally, moves all extremities and no focal motor deficits Sensorium / Orientation: awake and alert Psych affect normal Results Lab / Micro Data 02/15/24 05:11 02/15/24 05:11 Labs: Laboratory Results - last 24 hr 02/15/24 05:11: WBC 12.1 H, RBC 4.64, Hgb 14.3, Hct 42.6, MCV 91.8, MCH 30.8, MCHC 33.6, RDW Std Deviation 46.8 H, RDW Coeff of Rojas 13.8, Plt Count 185, MPV 9.7, Immature Gran % (Auto) 0.200, Neut % (Auto) 90.6 H, Lymph % (Auto) 6.4 L, [place] % (Auto) 2.0, Eos % (Auto) 0.0, Baso % (Auto) 0.8, Absolute Neuts (auto) 10.9 H, Absolute Lymphs (auto) 0.77 L, Nucleated RBC % 0, Differential Comment SCANNED, PT 17.7 H, INR 1.4, APTT 27.8, Sodium 135 L, Potassium 3.7, Chloride 101, Carbon Dioxide 26.0, Anion Gap 8, BUN 31 H, Creatinine 1.27 H, Estim Creat Clear Calc 31.89, Est GFR (MDRD) Af Amer 52 L, Est GFR (MDRD) Non-Af 43 L, B UN/Creatinine Ratio 24.4 H, Glucose 159 H, Lactic Acid 3.0 H*, Calcium 9.6, T otal Bilirubin 1.80 H, AST 24, ALT 19, Alkaline Phosphatase 56, Troponin I High Sens 290 H*, Total Protein 7.9, Albumin 3.5, Globulin 4.4 H, Albumin/Globulin Ratio 0.8 L Micro: Microbiology 02/15/24 05:04 Mucosa - Nose SARS-CoV-2, Influenza & RSV (PCR) - Final Influenzae A Imaging Radiology Impression Chest X-Ray 02/15/24 04:57 IMPRESSION: Severe diffuse patchy airspace disease as above, to include pneumonia. Recommend follow-up to resolution as neoplastic process is not excluded. Electronically Signed: Jose F Cherry MD at 7:10 EST , Assessment & Plan Assessment/Plan (1) Influenza A: (2) Acute dehydration: (3) Pneumonia: PLAN: Plan #Acute hypoxic respiratory failure due to influenza with superimposed pneumonia * Admitted with a complaint of weakness and productive cough. Was hypoxic when she came in requiring up to 6 L of oxygen. * Now down to 4 L. Influenza test was positive and chest x-ray also showed severe diffuse patchy airspace disease * WBC is 12.1. * Hydrated with IV fluid normal saline at 125 cc/h. * Check sputum cultures and urine for strep and Legionella. Start on Tamiflu * IV ceftriaxone and azithromycin. * Titrate oxygen to maintain saturation above 90%. Breathing treatments bronchodilators. * at time I saw patient in the ED this morning at ~ 7:45am, HR was 94, she was on 4L of oxygen and she was breathing at 24/min. At that time patient was felt to be suitable for PCU. * However during the day patient continued to deteriorate and oxygen requirements increased to 7 L of oxygen. Patient became more tachycardic with heart rate going up to the 120s and she became more tachypneic with a respiratory rate going up to 35. Temperature was also 102 Fahrenheit she became more febrile. * I am therefore not comfortable with patient being on PCU and will transfer patient to ICU and broaden antibiotics to IV vancomycin and IV Zosyn. I am concerned that patient is at a high risk of clinical deterioration. * consult critical care #Sepsis due to influenza with superimposed pneumonia * as above. * she is tachycardic and tachypneic. She got more tachycardic and tachypneic during the day. * She is also febrile and with a clear source of infection. * She is not requiring 7 L of oxygen. * Currently on IV ceftriaxone and azithromycin. On Tamiflu as well. Will broaden antibiotics to IV vancomycin and Zosyn. Blood cultures and urine cultures pending. Lactic acid was also elevated * #Elevated lactic acid: * Likely due to hypoxia. and sepsis. Was 3 on admission. * Should improve as hypoxia improves and also with hydration. #SOFIYA: * Creatinine is 1.27 with baseline of around 0.6. S * he therefore meets the criteria for SOFIYA. Hydrate with IV fluids and trend. #History of CAD s/p CABG * On aspirin and metoprolol. * Not on statin. Unclear why. * Initial troponin was 219. This may have been related to the hypoxia. Will cycle troponins. EKG showed no acute ST changes #Type 2 diabetes mellitus: * Hold glimepiride and metformin in light of the elevated lactic acid. * Insulin sliding scale. * Accu-Cheks ACHS. * DVT prophylaxis: Lovenox CODE STATUS: full code * Patient counseled extensively about different types of CODE STATUS including full code, DNR CCA and DNR CCA. * Patient elects to be full code. * Total [id number] time 17 minutes. Charges/Coding Visit Charges Inpatient E&M: 18607 Init Hosp L3 Procedures Hospitalists Procedures: 85681 Advncd Care Plan 30 Min
[2024-02-15 07:39] LABS: Bilirubin, Direct 0.35 mg/dL (0.00-0.30)
[2024-02-15] MEDS: Pantoprazole Sodium 20 MG Tablet PO (09:10)
[2024-02-15] MEDS: Enoxaparin 40 MG/0.4 ML Syringe SC (09:10)
[2024-02-15] MEDS: Aspirin 81 MG TAB.CHEW PO (09:10)
[2024-02-15] MEDS: Oseltamivir Phosphate 75 MG Capsule PO ×2 (09:11→21:00)
[2024-02-15] MEDS: 0.9% Normal Saline (1000mL) 1,000 ML 125 ML IV ×2 (09:13→17:03)
[2024-02-15 09:15] LABS: Reflex Lactate? Y
[2024-02-15 09:16] LABS: Troponin-I HS 247 pg/mL (3.0-54.0)
[2024-02-15 09:29] LABS: Bedside Glucose 142 mg/dL (74-106)
[2024-02-15 10:08] LABS: Troponin-I HS 245 pg/mL (3.0-54.0)
[2024-02-15 10:28] LABS: Lactic Acid 2.7 mmol/L (0.4-1.9)
[2024-02-15 11:59] LABS: Bacteria 0 SEEN /hpf (None Seen); Mucous, Urine 0 SEEN /hpf (<or=2+); Red Blood Cells-Urine 0 SEEN /hpf (0-5)
[2024-02-15 12:02] LABS: Color, Urine Yellow (Yellow); Glucose, Dipstick Normal (Normal); Ketone-Dipstick 5 mg/dl (Negative); Leukocyte Esterase-Dipstick 100 /ul (Negative); Nitrite-Dipstick Negative (Negative); Occult Blood-Urine 10 /ul (Negative); Protein-Dipstick 30 mg/dl (Negative); Specific Gravity, Urine 1.025 (1.002-1.030); Urine Bilirubin Dipstick Negative (Negative); Urine Clarity Clear (Clear); Urine Urobilinogen Normal (Normal)
[2024-02-15 12:22] LABS: Squamous Epithelial Cells - UA 0-5 SEEN /hpf (5-10); White Blood Cells 0-5 SEEN /hpf (0-5)
[2024-02-15] MEDS: Insulin Lispro 100 UNIT/ML INSULN.PEN SC ×3 (13:27→21:03)
[2024-02-15 13:40] LABS: Bedside Glucose 256 mg/dL (74-106)
[2024-02-15 14:30] LABS: Troponin-I HS 188 pg/mL (3.0-54.0)
[2024-02-15] MEDS: Acetaminophen 325 MG Tablet 650 MG PO (16:43)
[2024-02-15 17:06] LABS: Bedside Glucose 236 mg/dL (74-106)
[2024-02-15 18:07] LABS: Base Excess -2 mmol/L (-2 to +2); Bicarbonate 22.2 mmol/L (22-26); Blood Gas Specimen Type ART; Mode Not entered; O2 Delivery Device HFNC; PO2 63 mmHG (75-100); SITE R Brach; SO2 92 % (95-99); Total Carbon Dioxide 23 mmol/L; pCO2 33.8 mmHg (35-45); pH 7.43 (7.35-7.45)
[2024-02-15] MEDS: Metoprolol Tartrate 25 MG Tablet PO (21:01)
[2024-02-15 22:02] LABS: Bedside Glucose 202 mg/dL (74-106)
[2024-02-16] VITALS (31 sets, daily range): BP systolic 78–188; BP diastolic 49–110; PULSE 85–155; RESP 12–43; TEMP 36.9–38.8; O2SAT 88–98
[2024-02-16] MEDS: 0.9% Saline Lock 10 ML Syringe IV ×6 (01:14→19:36)
[2024-02-16] MEDS: Ipratropium/Albuterol Sulfate 3 ML AMPUL.NEB INHALATION ×4 (01:25→17:08)
[2024-02-16] MEDS: Acetaminophen 325 MG Tablet 650 MG PO ×2 (06:05→16:12)
[2024-02-16 06:32] LABS: Bedside Glucose 145 mg/dL (74-106)
[2024-02-16 07:56] LABS: Absolute Lymphocyte Count 1.11 X10^3/uL (0.83-4.51); Absolute Neutrophil Count 6.3 X10^3/uL (2.0-7.7); Basophil# 0.03 X10^3/uL; Basophil% 0.4 % (0-1); Hematocrit 35.4 % (37-47); Hemoglobin 11.7 g/dL (12.0-15.0); Lymphocyte # 1.11 X10^3/ul (0.83-4.51); Lymphocyte % 14.4 % (19-41); Mean Corp Hgb Conc 33.1 g/dL (32-36); Mean Corpuscular Hgb 30.5 pg (27.0-32.0); Mean Corpuscular Volume 92.2 fL (81-99); Mean Platelet Vol. 10.4 fl (6.2-12.0); Monocyte# 0.23 X10^3/uL; NRBC Flagged by Analyzer 0 % (0-5); Neutrophil # 6.33 X10^3/uL (2.7-7.7); Neutrophil % 82.1 % (47-70); POSITIVE MORPHOLOGY YES; Platelet Count 164 K/mm3 (150-450); RBC Distribution Width CV 13.9 % (11.6-14.6); RBC Distribution Width SD 47.2 fl (35.1-43.9); Red Blood Count 3.84 M/mm3 (4.2-5.4); White Blood Count 7.7 K/mm3 (4.4-11.0)
[2024-02-16 08:08] LABS: Differential Indicated SCAN CRITERIA MET
[2024-02-16 08:38] LABS: Anion Gap 7 (5-15); BUN 16 mg/dL (7-18); BUN/Creat Ratio 22.7 RATIO (10-20); Calcium,Total 8.5 mg/dL (8.5-10.1); Chloride 106 mmol/L (98-107); EST Glomerular Filtration Rate 85 mL/min (>60); Est Glom Filt Rate - Afr Amer 103 mL/min (>60); Estimated Creatinine Clearance 52.19 ml/min; Glucose 169 mg/dL (74-106); Potassium 3.2 mmol/L (3.5-5.1); Sodium Level 136 mmol/L (136-145)
[2024-02-16] MEDS: Metoprolol Tartrate 25 MG Tablet PO (09:12)
[2024-02-16] MEDS: Enoxaparin 40 MG/0.4 ML Syringe SC (09:12)
[2024-02-16] MEDS: Oseltamivir Phosphate 75 MG Capsule PO (09:12)
[2024-02-16] MEDS: Pantoprazole Sodium 20 MG Tablet PO (09:12)
[2024-02-16] MEDS: Aspirin 81 MG TAB.CHEW PO (09:13)
[2024-02-16] MEDS: Azithromycin 500 MG in 0.9% Normal Saline (250mL Bag) 250 ML 255 MG IV (09:16)
[2024-02-16 10:15] LABS: Platelet Estimate A (ADEQ)
[2024-02-16] MEDS: Ceftriaxone 1 GM/50 ML BAG IV (10:35)
--- NOTE | 2024-02-16 11:22 | PN_ITS ---
Subjective Subjective Patient seen and examined. She feels much better today. She became very tachycardic and tachypneic yesterday, and was also febrile. I had put in transfer orders last night to send to ICU, but patient's vitals improved and ABG showed pH of 7.43, pO2 of 63 and bicarb of 22. Decision therefore was made to keep patient on PCU in stepdown status. She feels much better today. Her daughter was by her bedside. She felt her breathing had improved. She denied any chest pain, palpitations, dizziness, nausea, vomiting or any other symptoms. Review of systems is otherwise negative. Objective Data Objective Data Vital Signs: Vital Signs Temp Pulse Resp BP Pulse Ox O2 Del Method O2 Flow Rate 98.9 F 102 H 28 H 114/62 95 High Flow 4 02/16/24 08:00 02/16/24 09:12 02/16/24 08:00 02/16/24 09:12 02/16/24 08:00 02/16/24 08:00 02/16/24 08:00 Oxygen Flow Rate (L/min) 4 Oxygen Delivery Method High Flow Weight: 159 lb 2.78 oz Body Mass Index (BMI) 29.1 Intake & Output: Intake and Output for Last 24 Hours 02/14/24 02/15/24 02/16/24 23:59 23:59 23:59 Intake Total 3724.17 / 3724.17 1365 / 1365 Output Total 950 / 950 Balance 2774.17 / 2774.17 1365 / 1365 Lab / Micro Data 02/16/24 07:25 02/16/24 07:25 Labs: Laboratory Results - last 24 hr 02/15/24 11:50: Urine Color Yellow, Urine Clarity Clear, Urine pH 5.0, Ur Specific [place] 1.025, Urine Protein 30 H, Urine Glucose (UA) Normal, Urine Ketones 5 H, Urine Occult Blood 10 H, Urine Nitrite Negative, Urine Bilirubin Negative, Urine Urobilinogen Normal, Ur Leukocyte Esterase 100 H, Urine RBC 0 SEEN, Urine WBC 0-5 SEEN, Ur Squamous Epith Cells 0-5 SEEN, Urine Bacteria 0 SEEN, Urine Mucus 0 SEEN 02/15/24 13:16: POC Glucose 256 H 02/15/24 13:52: Troponin I High Sens 188 H* 02/15/24 16:42: POC Glucose 236 H 02/15/24 20:58: POC Glucose 202 H 02/16/24 06:11: POC Glucose 145 H 02/16/24 07:25: WBC 7.7, RBC 3.84 L, Hgb 11.7 L, Hct 35.4 L, MCV 92.2, MCH 30.5, MCHC 33.1, RDW Std Deviation 47.2 H, RDW Coeff of Rojas 13.9, Plt Count 164, MPV 10.4, Immature Gran % (Auto) 0.100, Neut % (Auto) 82.1 H, Lymph % (Auto) 14.4 L, [place] % (Auto) 3.0, Eos % (Auto) 0.0, Baso % (Auto) 0.4, Absolute Neuts (auto) 6.3, Absolute Lymphs (auto) 1.11, Nucleated RBC % 0, Platelet Estimate A, Sodium 136, Potassium 3.2 L, Chloride 106, Carbon Dioxide 23.0, Anion Gap 7, BUN 16, Creatinine 0.70, Estim Creat Clear Calc 52.19, Est GFR (MDRD) Af Amer 103, Est GFR (MDRD) Non-Af 85, BUN/Creatinine Ratio 22.7 H, Glucose 169 H, Calcium 8.5 Micro: Microbiology 02/15/24 11:50 Urine, Clean Catch Urine Culture - Preliminary Culture exhibits no growth. 02/15/24 08:50 Sputum, Expectorated/Coughed Gram Stain - Final 02/15/24 11:50 Urine, Random Legionella Antigen - Final 02/15/24 11:50 Urine, Random Streptococcus pneumoniae Antigen (M - Final 02/15/24 05:04 Mucosa - Nose SARS-CoV-2, Influenza & RSV (PCR) - Final Influenzae A ABG Data ABG results: ABG 02/15/24 18:05 Specimen Type ART Sample Site R Brach pH 7.43 Bicarbonate Actual 22.2 Total CO2 23 Base Excess -2 O2 Saturation 92 L O2 % 7.0 ABG pCO2 33.8 L ABG pO2 63 L O2 Delivery Device HFNC Vent Mode Not entered Physical Exam Const alert and oriented x3 Constitutional Narrative: weak and frail Orientation / Consciousness: lethargic HEENT normocephalic, head/scalp atraumatic and hearing grossly normal bilaterally Eyes PERRL, EOMs intact bilaterally and conjunctivae normal Neck no lymphadenopathy and supple Resp Resp Narrative: moderately diminished breath sounds bibasally, no wheezes or crackles. On 4L of oxygen by nasal canula this morning. Tachycardia is improving. Cardio regular rhythm, S1 normal heart sound, S2 normal heart sound and no murmurs Rate: tachycardic GI normal to inspection, nondistended, normoactive bowel sounds, soft to palpation, non-tender and non-distended Extremity normal to inspection, full ROM and no clubbing, cyanosis or edema Neuro oriented x3, CN's II-XII intact bilaterally, moves all extremities and no focal motor deficits Sensorium / Orientation: awake and alert Psych affect normal Appearance: appropriate Assessment & Plan Assessment/Plan (1) Influenza A: (2) Acute dehydration: (3) Pneumonia: PLAN: Plan #Acute hypoxic respiratory failure due to influenza with superimposed pneumonia * became tachycardic and tachypneic yesterday. * on IV ceftriaxone and azithromycin. * was hypotensive this morning but it is improving. * required up to 8L of oxygen but is now down to 4L * sputum cultures pending * on tamiflu * breathing treatment with bronchodilators. * titrate oxygen to maintain sats >90% * #Hypokalemia: K is 3.2. Will replace and trend. #Sepsis due to influenza with superimposed pneumonia * as above. * tachycardia is improving; tachypnea is also improving * now down to 4L of oxygen. * on tamiflu and IV ceftriaxone and azithromycin. * yesterday plan was to broaden antibiotics to IV vancomycin and zosyn but since patient started improving, the transfer was canceled and patient kept on IV ceftriaxone and azithromycin * #Elevated lactic acid: * Likely due to hypoxia. and sepsis. Was 3 on admission. * trended downwards. #SOFIYA: * resolved. Cr was 1.27 but now down to 0.7. #History of CAD s/p CABG * On aspirin and metoprolol. * Not on statin. Unclear why. * Initial troponin was 290; it trendeed downwards to a les of 188. * Likely due to hypoxia. * EKG showed no acute ST changes. * will get 2D echo as her last echo in the EMR was in December 2022. #Type 2 diabetes mellitus: * Hold glimepiride and metformin in light of the elevated lactic acid. * Insulin sliding scale. * Accu-Cheks ACHS. * DVT prophylaxis: Lovenox CODE STATUS: full code * Charges/Coding Visit Charges Inpatient E&M: 45577 Subs Hosp L3
[2024-02-16] MEDS: Insulin Lispro 100 UNIT/ML INSULN.PEN SC ×3 (11:23→23:21)
[2024-02-16 11:59] LABS: Bedside Glucose 222 mg/dL (74-106)
[2024-02-16] MEDS: Potassium Chloride Oral Tablet 20 MEQ 40 MEQ PO (13:02)
[2024-02-16 13:07] LABS: Hemoglobin A1c 6.7 % (3.8-5.6)
--- NOTE | 2024-02-16 14:10 | CASEMGMT ---
Addendum entered by Lena Negro 02/16/24 14:58: Call placed to Anupama @ [facility] and referral made. Order for HHC has been placed for SN and PT. Original Note: SHWETA ROBERTSON Assessment: SHWETA ROBERTSON to room to meet with patient for initial transition planning/care coordination assessment. SHWETA ROBERTSON introduced self and role at [facility]. Patient lying in bed, alert and oriented, at bedside. Patient willing to participate in assessment and is able to answer all questions appropriately. Care providers, pharmacy, and demographics verified. Noted address listed for pt ([address]), is different than 's address ([address]). The address listed under pt's name is their mailing address. Address listed under is their physical address/location. PCP: Dr Recio Specialists: none Preferred Pharmacy: [facility] Insurance: [facility] Prescription Benefit: none LNOK: , New. Pt has 14 children and 78 grand-children. Living Arrangements: Patient lives with and daughter with Down-Syndrome in an in-law suite at grandson's home. Suite is one-story w/a basement. There are 4 steps and railing to enter the home. Prior to illness, pt was independent at home and able to navigate stairs well. Dtr helps w/laundry and cleaning. Transportation: Hire drivers. DME: Patient has a cane, pulse ox, functioning glucometer w/supplies, and grab bars at home. Pt states she has plenty of insulin, but is now on needles. states they go to [facility] and buy them OTC and does not need assistance with this. Pt does not have home O2. Discussed possible need of home O2 @ discharge and made aware [facility] is affiliated w/[facility]. Pt and prefer [employer]. Patient has access to solar electricity and generator. Pt and aware of the [facility] warehouse and son is in the process of getting a W/C from there. They also plan to get a walker from there, if needed. SNF/HHC: No hx of SNF. Has had HHC in the past. Pt wishes to discharge home, stating they have great family support and her children can take care of her. They can provide 2 people to be w/her at all times, if needed. Pt and would like [facility], declining list of other HHC options. Patient and state no further needs or concerns at this time. CM to follow for discharge planning needs that may arise. Plan: Home w/HHC, family support and discharge plans in place. Will monitor for home oxygen at discharge. Nas JOSHI RN CM
[2024-02-16 16:26] LABS: Bedside Glucose 188 mg/dL (74-106)
--- NOTE | 2024-02-16 17:12 | CT_ITS ---
STUDY: CTA CHEST REASON FOR EXAM: Female, 79 years old. SOB RADIATION DOSAGE (If Supplied By Facility): CTDIvol = ( 26.12 ) mGy, DLP = ( 1894.14 ) mGycm TECHNIQUE: The examination was performed with the intravenous administration of 75ml-ISOVUE 370. Post-processing of the angiographic images was performed, with multiplanar reformation and 3D reconstruction. Individualized dose optimization techniques were used for this CT. The protocol utilizes one or more of the following dose reduction techniques: automated exposure control, adjustment of mA and/or kV according to patient size,and/or use of iterative reconstruction technique. COMPARISON: Chest x-ray February 15, 2024. CTA chest January 02, 2023. FINDINGS: Normal enhancement of the main pulmonary artery and right and left pulmonary arteries. Normal enhancement of the bilateral peripheral pulmonary arteries. There is no demonstrated pulmonary embolism. Normal thoracic aorta and visualized great vessels. Mediastinal vascular clips. Cardiomegaly and calcific coronary artery disease. Subcarinal calcified lymph node. Normal hilar regions. Normal visualized trachea and bronchi. The lungs are well expanded. Normal pulmonary parenchyma. Bilateral multifocal groundglass airspace disease right greater than left. Bibasilar consolidations. Sternotomy wires. Ossification anterior longitudinal ligament. Normal visualized upper abdomen. CT/CTA Chest W/WO Contrast IMPRESSION: Nonspecific moderately severe airspace disease. Status post CABG. Cardiomegaly and coronary artery disease. Electronically Signed: Murray Santos MD at 20:12 EST ,
[2024-02-16] MEDS: Furosemide 40 MG/4 ML Vial IV (17:15)
--- NOTE | 2024-02-16 17:20 | CT_ITS ---
STUDY: CTA HEAD AND NECK WITH CONTRAST REASON FOR EXAM: Female, 79 years old. stroke like symptoms RADIATION DOSAGE (If Supplied By Facility): CTDIvol = ( 28.20 ) mGy, DLP = ( 824.31 ) mGycm TECHNIQUE: CT angiography was performed with a multi-detector CT scanner. Data acquisition was obtained from the skull base through the vertex following intravenous administration of IV 100mL Isovue-370. MIP images were reconstructed from the axial data set. Post-processing of the angiographic images was performed, with multiplanar reformation and 3D reconstruction. Individualized dose optimization techniques were used for this CT. The protocol utilizes one or more of the following dose reduction techniques: automated exposure control, adjustment of mA and/or kV according to patient size,and/or use of iterative reconstruction technique. COMPARISON: No relevant priors. FINDINGS: Normal bilateral petrous carotid arteries. Normal right cavernous carotid artery with a normal supraclinoid bifurcation. Fusiform dilatation left cavernous segment measures up to 6 mm in diameter. There is hypoplastic development of the right A1 segment of the anterior cerebral arteries with an atretic but intact artery. Normal left A1 segments of the anterior cerebral artery. Normal intact anterior communicating artery (ACOM). Normal bilateral A2 segments of the anterior cerebral arteries. Normal right M1 and M2 segments of the middle cerebral arteries, with a normal M1 bifurcation. Normal left M1 and M2 segments of the middle cerebral arteries, with a normal M1 bifurcation. There is non-visualization of the right posterior communicating artery (PCOM). There is non-visualization of the left posterior communicating artery (PCOM). Normal bilateral vertebral arteries. Normal basilar artery with a normal basilar bifurcation. The visualized bilateral superior cerebellar (SCA) arteries are normal. Normal bilateral P1, P2 and visualized P3 segments of the posterior cerebral arteries. There is no demonstrated aneurysm of the [place] of [place]. There is no demonstrated abnormality of the visualized brain. AORTIC ARCH: Normal visualized aortic arch. Normal origins of the brachiocephalic, left common carotid, and left subclavian arteries. RIGHT CAROTID ARTERIES: Normal right common carotid artery (CCA). Normal right common carotid bulb. Normal origin of the right internal carotid (ICA) artery without a hemodynamically significant stenosis. Normal visualized cervical portion of the right internal carotid artery. Normal origin of the right external carotid artery (ECA). LEFT CAROTID ARTERIES: Normal left common carotid artery (CCA). Normal left common carotid bulb. Normal origin of the left internal carotid (ICA) artery without a hemodynamically significant stenosis. Normal visualized cervical portion of the left internal carotid artery. Normal origin of the left external carotid artery (ECA). VERTEBRAL ARTERIES: Normal bilateral vertebral arteries. Bilateral pleural effusions and airspace disease. CT/CTA Head AND Neck W/ Contrast IMPRESSION: Airspace disease and pleural effusions otherwise Normal CTA Head and neck with contrast. Electronically Signed: Murray Santos MD at 20:35 EST ,
[2024-02-16] MEDS: Metoprolol Tartrate 5 MG/5 ML Vial 2.5 MG IV (17:22)
--- NOTE | 2024-02-16 17:23 | PN_ITS ---
Progress Note I was called to see the patient who had became hypoxic, tachypneic and tachycardic upon getting up to work with therapy. She had become hypoxic and r equired 15L of oxygen. She had beeno n 4L of oxygen earlier. She had increased work of breathing and had rattling breath sounds with audible coarse crackles. Stat CTA chest ordered, as well as ABG and patient was placed on BIPAP. She was given a dose of IV lasix 40mg x 1 also. Her nurse informed me that patient had been noted to have left sided focal weakness when working with therapy today. Will therefore also get a CT brain and CTA head and neck. Further management to be predicated on the findings of the CTA chest and ABG. I did clarify code status again with the patient and she wishes to be full code and to be intubated if needed. Time spent seeing and managing patient, discussing plan of care with nurse, patient and and respiratory therapist: 18 mins. 6:19pm Patient came back from CT scan and was maxed out on BIPAP, with increased work of breathing. She was tachycardic and tachypneic, and also had increased work of breathing. Decision was made to intubate the patient. Patient was placed in the appropriate sniffing position. She was given Etomidate 20mg x 1. Two attempts at intubation were made; she had copious secretions which were continuously suctioned and obstructed the view of the airway. To limit trauma to the airway, decision made to call for help. Dr Miller called and after succhynlcholine was administered, patient intubated by Dr Miller on second attemp t. Full intubation note to follow. Patient emergently transferred to ICU. Antibiotics broadened to IV vancomycin and IV zosyn. IV ceftriaxone and azithromycin discontinued. Critical care consulted.
--- NOTE | 2024-02-16 17:51 | EKG12_ITS ---
Test Reason : sob Blood Pressure : */* mmHG Vent. Rate : 142 BPM Atrial Rate : 142 BPM P-R Int : 168 ms QRS Dur : 116 ms QT Int : 324 ms P-R-T Axes : -6 -71 90 degrees QTcB Int : 498 ms Critical Test Result: High HR Sinus tachycardia with Premature atrial complexes with abberant conduction Left anterior fascicular block Left ventricular hypertrophy with QRS widening and repolarization abnormality ( R in aVL , Nito pr oduct , Romhilt-Roe ) Abnormal ECG Confirmed by Cachorro Niño ([id number]), assignment desk editor DUY MARTINEZ ([id number]) on 02/17/2024 1:18:09 PM Referred By: Sherman Confirmed By: Cachorro Niño
[2024-02-16] MEDS: Etomidate 20 MG/10 ML Vial IV (18:01)
[2024-02-16] MEDS: Succinylcholine Chloride 200 MG/10 ML SYRINGE 100 MG IV (18:20)
--- NOTE | 2024-02-16 18:28 | PN.HOSP_ITS ---
Hospitalist Note Intubation Note: Patient with respiratory distress in the setting of acute influenza with difficulty maintaining appropriate airway. Intubation had been initiated per patient hospitalist physician however patient with significant copious secretions that made visualization of the airway extremely difficult. Ringgold scope utilized and airway suction several times with ongoing difficulty per discussion with Dr. Whitaker. Medications administered: Patient had previously been administered 20 mg etomidate x 1, requested additional administration of succinylcholine 100 mg x 1 as patient clamping. ETT size: 7.5 Once airway secretions cleared with continuous assist with Dr. Whitaker suctioning, I was able to more readily visualize airway/vocal cords with glide scope. At this point I was able to pass ET tube through the visualized vocal cords with position verified with color change/auscultation. Patient suctioned via the ETT following securing the ETT in place per RT. Wave form/oxygenation improved. Patient being transitioned to the ICU per Dr. Whitaker for further intensive care intervention. Procedures Hospitalists Procedures: [id number] Insert Emergency Airway
[2024-02-16] MEDS: Propofol 10MG/Ml 1,000 MG/100 ML Bottle 4.3 MG CONT INF (19:36)
[2024-02-16] MEDS: fentaNYL drip 100 ML 2.5 MCG CONT INF (19:36)
[2024-02-16 20:31] LABS: CPK Total, Creatine Kinase 1086 U/L (26-192); Triglycerides 100 mg/dL
[2024-02-16] MEDS: Vancomycin HCl 1,750 MG in 0.9% Normal Saline (500mL Bag) 500 ML 250 MG IV (20:37)
--- NOTE | 2024-02-16 21:00 | RAD_ITS ---
STUDY: X-RAY CHEST REASON FOR EXAM: Female, 79 years old. To confirm ET placement -- Call wet read to TECHNIQUE: Single frontal view of the chest. COMPARISON: CT chest February 16, 2024. Chest x-ray February 15, 2024 5:32 AM today. FINDINGS: Lungs are hyperaerated. New ET tube terminates 4.7 cm above the elizabeth. New Enteric tube terminates in the stomach. Right greater than left airspace disease increased. There is no demonstrated pleural abnormality. Sternotomy wires again noted. Cardiomegaly. Normal mediastinum and jam. Normal visualized pulmonary arteries. Normal visualized aortic arch and descending thoracic aorta. Normal visualized thoracic spine. Normal visualized ribs, clavicles, and shoulders. There is no demonstrated abnormality of the visualized soft tissue structures of the upper abdomen. RAD/Chest 1 View (Portable) IMPRESSION: Increased airspace disease. New ETT and enteric tubes as above. Electronically Signed: Murray Santos MD at 23:18 EST ,
[2024-02-16 21:11] LABS: Blood Gas Specimen Type VEN; O2 Delivery Device Adult Vent; PEEP 5; RR 14; SITE L Radial; VBG BASE EXCESS -6 mmol/L (-1.0-3.5); VBG Bicarbonate 19 mmol/L (22-26); VBG PO2 56 mmHg (25-40); VBG SO2 88 % (50-70); VBG TCO2 20 mmol/L (23-33); VBG pCO2 34.6 mmHg (41-51); VBG pH 7.36 (7.32-7.42)
--- NOTE | 2024-02-16 22:12 | PCM.RX.CS ---
Consult Antibiotic Management Pharmacy has been consulted to manage selected antibiotic: Vancomycin Type of Intervention Type of Consult: New start Labs Labs: Sodium 136 mmol/L (136-145) 02/16/24 07: Potassium 3.2 mmol/L (3.5-5.1) L 02/16/24 07: Chloride 106 mmol/L (98-107) 02/16/24 07:25 Carbon Dioxide 23.0 mmol/L (21.0-32.0) 02/16/24 07:25 Anion Gap 7 (5-15) 02/16/24 07:25 BUN 16 mg/dL (7-18) 02/16/24 07: Creatinine 0.70 mg/dL (0.55-1.02) 02/16/24 07: Est GFR (MDRD) Af Amer 103 mL/min (>60) 02/16/24 07: Est GFR (MDRD) Non-Af 85 mL/min (>60) 02/16/24 07:25 BUN/Creatinine Ratio 22.7 RATIO (10-20) H 02/16/24 07:25 Glucose 169 mg/dL (74-106) H 02/16/24 07:25 Microbiology Microbiology: Microbiology 02/15/24 08:50 Sputum, Expectorated/Coughed Gram Stain - Final 02/15/24 08:50 Sputum, Expectorated/Coughed Respiratory Culture - Preliminary Alpha Hemolytic Streptococcus Staphylococcus species 02/15/24 11:50 Urine, Clean Catch Urine Culture - Preliminary Culture exhibits no growth. 02/15/24 11:50 Urine, Random Legionella Antigen - Final 02/15/24 11:50 Urine, Random Streptococcus pneumoniae Antigen (M - Final 02/15/24 05:04 Mucosa - Nose SARS-CoV-2, Influenza & RSV (PCR) - Final Influenzae A Dosing Weight Weight used for dosin.2 kg Estimated Creatinine Clearance Estimated Creatinine Clearance: 52 Goal Trough Goal Trough: 15-20 mcg/mL Pharmacy Plan for Drug Dosing Pharmacy Plan for Drug Dosing: Pharmacy Service will continue to monitor and adjust dosing as required. 1750MG LOADING DOSE GIVEN 02/15 @ 2036. START 750MG Q12H AND DRAW TROUGH PRIOR TO 4TH DOSE Follow-Up Labs Follow-Up Labs: Trough: Vancomycin Date/Time Labs Ordered Labs to be done on [date and time ordered]: 02/17 @ 2375
[2024-02-16] MEDS: Menthol/Lanolin/Calamine/Znox 113 GM Tube 1 APPLIC TOPICAL (22:42)
[2024-02-16] MEDS: Chlorhexidine 15 ML PO (22:43)
[2024-02-16] MEDS: Piperacil/Tazobactam 3.375 GM in 0.9% Normal Saline (50mL MB+) 50 ML IV (22:43)
[2024-02-16] MEDS: Oseltamivir Phosphate 75 MG Capsule GT (22:45)
[2024-02-16] MEDS: Metoprolol Tartrate 25 MG Tablet GT (23:11)
[2024-02-16 23:37] LABS: Bedside Glucose 257 mg/dL (74-106)
[2024-02-17] VITALS (37 sets, daily range): BP systolic 86–112; BP diastolic 52–77; PULSE 79–111; RESP 14–25; TEMP 37.3–38.4; O2SAT 95–98; BMI 29.2
[2024-02-17] MEDS: Ipratropium/Albuterol Sulfate 3 ML AMPUL.NEB INHALATION ×4 (01:16→19:07)
[2024-02-17] MEDS: Piperacil/Tazobactam 3.375 GM in 0.9% Normal Saline (50mL MB+) 50 ML IV ×3 (05:44→21:35)
[2024-02-17] MEDS: Insulin Lispro 100 UNIT/ML INSULN.PEN SC ×3 (05:44→17:12)
[2024-02-17 06:12] LABS: Absolute Neutrophil Count 7.5 X10^3/uL (2.0-7.7); Basophil# 0.01 X10^3/uL; Basophil% 0.1 % (0-1); Eosinophil# 0.01 X10^3/uL; Eosinophils% 0.1 % (0-5); Hematocrit 35.9 % (37-47); Lymphocyte % 11.1 % (19-41); Mean Corp Hgb Conc 33.4 g/dL (32-36); Mean Corpuscular Hgb 30.7 pg (27.0-32.0); Mean Corpuscular Volume 91.8 fL (81-99); Mean Platelet Vol. 10.6 fl (6.2-12.0); Monocyte# 0.43 X10^3/uL; Monocyte% 4.8 % (0-10); NRBC Flagged by Analyzer 0 % (0-5); Neutrophil % 83.5 % (47-70); Platelet Count 172 K/mm3 (150-450); RBC Distribution Width CV 14.1 % (11.6-14.6); RBC Distribution Width SD 47.7 fl (35.1-43.9); Red Blood Count 3.91 M/mm3 (4.2-5.4)
[2024-02-17 06:17] LABS: Bedside Glucose 177 mg/dL (74-106)
[2024-02-17 06:25] LABS: Anion Gap 5 (5-15); BUN 21 mg/dL (7-18); BUN/Creat Ratio 24.7 RATIO (10-20); Calcium,Total 8.4 mg/dL (8.5-10.1); Chloride 109 mmol/L (98-107); Creatinine, Serum 0.85 mg/dL (0.55-1.02); EST Glomerular Filtration Rate 68 mL/min (>60); Est Glom Filt Rate - Afr Amer 83 mL/min (>60); Estimated Creatinine Clearance 49.26 ml/min; Glucose 199 mg/dL (74-106); Potassium 3.7 mmol/L (3.5-5.1); Sodium Level 138 mmol/L (136-145)
--- NOTE | 2024-02-17 08:09 | EX.PCM.CONCC ---
Assessment & Plan Assessment/Plan (1) Influenza A: (2) Pneumonia: (3) Acute respiratory failure with hypoxia: PLAN: Plan RECOMMENDATIONS: 1. Continue assist-control mode of mechanical ventilation. Wean FiO2 and PEEP to maintain saturations at or above 90%. 2. Check BNP and procalcitonin. 3. Obtain follow-up ABG this morning. 4. Continue empiric antimicrobials. 5. Propofol and fentanyl for sedation. 6. Continue Tamiflu as ordered. 7. Okay to initiate tube feeding from my perspective. 8. Continue appropriate GI and DVT prophylaxis. IMPRESSIONS: 1. Acute hypoxemic respiratory failure Appears secondary to influenza A infection with secondary bacterial pneumonia. Preliminary sputum culture is demonstrating growth of both Staph aureus and alphahemolytic Streptococcus. The patient was ultimately intubated due to worsening respiratory failure on February 15. She is doing well on assist-control mode of mechanical ventilation. Plan to wean FiO2 and PEEP as tolerated. The patient will be continued on antimicrobials as ordered along with Tamiflu. Will obtain follow-up ABG this morning. 2. Sepsis The patient presented to the ICU with sepsis due to influenza A and secondary bacterial pneumonia with acute sepsis related organ dysfunction as evidenced by lactic acidemia and acute respiratory failure requiring invasive mechanical ventilatory support. The patient remains hemodynamically stable. Plan to continue antimicrobials and Tamiflu, as noted above. 3. History of coronary artery disease status post CABG/diabetes mellitus Complicates care, management, recovery and prognosis. Continue sliding scale insulin coverage for now. Physical therapy to work with the patient, once medically stabilized. TIME: 34 minutes of critical care time, independent of procedures, was spent addressing the patient's acute hypoxemic respiratory failure, sepsis, review of all data and collaboration with the care team. HPI Consult Data Date of Consult: 02/17/24 HPI Narrative Reason for Consultation: Respiratory failure HPI Narrative: The patient is an 79-year-old female, with a history as outlined below, who presented to the emergency department on February 14 with weakness, cough and hypoxemia. History pertinent to her hospitalization was obtained primarily via chart review, as the patient is currently intubated and mechanically ventilated. She has an apparent history of coronary artery disease and diabetes mellitus. On presentation to the emergency department, the patient was documented to be afebrile and hemodynamically stable. She was initially saturating 83% on room air. Initial laboratory evaluation revealed a white blood cell count of 12,000. Arterial blood gas was notable for a pH of 7.43 with a pCO2 of 33 and pO2 of 63. Chemistry profile was notable for a sodium of 135 and creatinine of 1.27. Lactate was elevated at 3.0. Troponin was increased to 290. CTA chest showed no evidence for pulmonary embolism. Multifocal groundglass opacities were noted bilaterally along with basilar consolidations. CTA head and neck was unremarkable. The patient tested positive for influenza A. The patient did receive supplemental IV fluid hydration and was started on Tamiflu along with antimicrobials. She was initially admitted to the progressive care unit for further management. During the course of the day on February 15, the patient decompensated from a clinical perspective with worsening tachypnea and hypoxemia. As a consequence of this, the patient was transferred to the medical intensive care unit, where she was ultimately intubated. The intubation was apparently difficult with copious secretions noted which partially obstructed direct visualization of the cords. The patient's antimicrobials were broadened to include Zosyn and vancomycin. The patient is currently sedated on propofol and fentanyl. Sputum culture from February 14 is currently demonstrating growth of alpha hemolytic Streptococcus and Staphylococcus species. [facility] Medical History Coronary artery disease Non-insulin dependent diabetes mellitus Home Medications ?Medication ?Instructions ?Recorded ?Last Taken ?Type BLOOD SUGAR HARMONY 1 tab PO 1XD supplement 01/02/23 Unknown History glimepiride 2 mg tablet 2 mg PO BID bs 01/02/23 Unknown History metformin 500 mg tablet 500 mg PO DAILY 01/02/23 Unknown History aspirin 81 mg chewable tablet 1 tab PO DAILY 02/15/24 Unknown History Allergy/AdvReac Type Severity Reaction Status Date / Time tetanus and diphtheria Allergy Swelling Verified 02/15/24 04:39 toxoids Surgical History Hx of CABG History of appendectomy Hx of cholecystectomy Social History Smoking Status: Never smoker ROS Review of Systems ROS Unobtainable: due to endotracheal tube Physical Exam Const Constitutional Narrative: Intubated, sedated and mechanically ventilated. No ventilator dyssynchrony. HEENT normocephalic and head/scalp atraumatic Mouth: endotracheal tube in place and OG tube in place Eyes PERRL, EOMs intact bilaterally and conjunctivae normal Neck supple General: trachea midline Chest inspection of chest normal Resp Auscultation: rales and diminished lung sounds Cardio regular rate and regular rhythm GI normal to inspection, nondistended, normoactive bowel sounds Extremity no clubbing, cyanosis or edema Skin no rashes or lesions noted Neuro Sensorium / Orientation: sedated on vent Lab / Micro Data 02/17/24 05:56 02/17/24 05:56 Labs: Laboratory Results - last 24 hr 02/16/24 07:25: Platelet Estimate A, Sodium 136, Potassium 3.2 L, Chloride 106, Carbon Dioxide 23.0, Anion Gap 7, BUN 16, Creatinine 0.70, Estim Creat Clear Calc 52.19, Est GFR (MDRD) Af Amer 103, Est GFR (MDRD) Non-Af 85, BUN/Creatinine Ratio 22.7 H, Glucose 169 H, Hemoglobin A1c 6.7 H, Calcium 8.5, Total Creatine Kinase 1086 H, Triglycerides 100 02/16/24 11:21: POC Glucose 222 H 02/16/24 16:06: POC Glucose 188 H 02/16/24 23:15: POC Glucose 257 H 02/17/24 05:42: POC Glucose 177 H 02/17/24 05:56: WBC 9.0, RBC 3.91 L, Hgb 12.0, Hct 35.9 L, MCV 91.8, MCH 30.7, MCHC 33.4, RDW Std Deviation 47.7 H, RDW Coeff of Rojas 14.1, Plt Count 172, MPV 10.6, Immature Gran % (Auto) 0.400, Neut % (Auto) 83.5 H, Lymph % (Auto) 11.1 L, Petroleum % (Auto) 4.8, Eos % (Auto) 0.1, Baso % (Auto) 0.1, Absolute Neuts (auto) 7.5, Absolute Lymphs (auto) 1.00, Nucleated RBC % 0, Sodium 138, Potassium 3.7, Chloride 109 H, Carbon Dioxide 24.0, Anion Gap 5, BUN 21 H, Creatinine 0.85, Estim Creat Clear Calc 49.26, Est GFR (MDRD) Af Amer 83, Est GFR (MDRD) Non-Af 68, BUN/Creatinine Ratio 24.7 H, Glucose 199 H, Calcium 8.4 L Micro: Microbiology 02/15/24 11:50 Urine, Clean Catch Urine Culture - Final Culture exhibits no growth. 02/15/24 08:50 Sputum, Expectorated/Coughed Gram Stain - Final 02/15/24 08:50 Sputum, Expectorated/Coughed Respiratory Culture - Preliminary Alpha Hemolytic Streptococcus Staphylococcus species ABG Data ABG results: ABG 02/16/24 21:06 Specimen Type BILLY Sample Site L Radial O2 % 100.0 VBG pH 7.36 VBG pO2 56 H VBG HCO3 19 L VBG Total CO2 20 L VBG O2 Sat (Calc) 88 H VBG Base Excess -6 L POC Mix VBG pCO2 Pt Tmp 34.6 L Respiration Rate 14 O2 Delivery Device Adult Vent Tidal Volume 450.0 POC PEEP 5 Imaging Radiology Impression Chest CTA 02/16/24 17:12 IMPRESSION: Nonspecific moderately severe airspace disease. Status post CABG. Cardiomegaly and coronary artery disease. Electronically Signed: Murray Santos MD at 20:12 EST Reading Location ID and State: [place] / [place] Tel , Service support , Head/Neck CTA 02/16/24 17:20 IMPRESSION: Airspace disease and pleural effusions otherwise Normal CTA Head and neck with contrast. Electronically Signed: Murray Santos MD at 20:35 EST Reading Location ID and State: [place] / [place] Tel , Service support , Chest X-Ray 02/16/24 21:00 IMPRESSION: Increased airspace disease. New ETT and enteric tubes as above. Electronically Signed: Murray Santos MD at 23:18 EST Reading Location ID and State: [place] / [place] Tel , Service support , Charges/Coding Procedures Hospitalists Procedures: [id number] Critical Care 1st Hr
[2024-02-17] MEDS: Propofol 10MG/Ml 1,000 MG/100 ML Bottle 6.5 MG CONT INF ×2 (08:22→21:35)
--- NOTE | 2024-02-17 09:43 | CASEMGMT ---
SHWETA ROBERTSON NOTE: SHWETA ROBERTSON spoke justice/Deanna @ [facility], who states, upon review of referral yesterday, they were able to accept pt. SHWETA ROBERTSON updated her that pt has had a change in condition, tx'd to ICU, and has been intubated. SHWETA ROBERTSON to continue to follow for any changes in discharge planning and needs. Nas JOSHI RN, CM
[2024-02-17] MEDS: Aspirin 81 MG TAB.CHEW GT (10:00)
[2024-02-17] MEDS: Chlorhexidine 15 ML PO ×2 (10:00→19:51)
[2024-02-17] MEDS: Enoxaparin 40 MG/0.4 ML Syringe SC (10:00)
[2024-02-17] MEDS: Pantoprazole Sodium 40 MG in 0.9% Normal Saline (100mL MB+) 100 ML 330 MG IV (10:01)
[2024-02-17] MEDS: Menthol/Lanolin/Calamine/Znox 113 GM Tube 1 APPLIC TOPICAL ×2 (10:01→19:50)
[2024-02-17] MEDS: Senna Tablet 1 TABLET GT (10:04)
[2024-02-17 10:15] LABS: BNP,B-Type NATRIURETIC PEPTIDE 909.4 pg/mL (0-100)
[2024-02-17 10:30] LABS: Allen Test Positive; Base Excess -1 mmol/L (-2 to +2); Bicarbonate 22.7 mmol/L (22-26); Blood Gas Specimen Type ART; Mode AC; O2 Delivery Device Adult Vent; PEEP 5; PO2 62 mmHG (75-100); RR 14; SITE L Brach; SO2 93 % (95-99); Total Carbon Dioxide 24 mmol/L; pCO2 32.9 mmHg (35-45); pH 7.45 (7.35-7.45)
[2024-02-17] MEDS: Vancomycin HCl 750 MG in 0.9% Normal Saline (250mL Bag) 250 ML 250 MG IV ×2 (10:50→19:49)
[2024-02-17] MEDS: Oseltamivir Phosphate 75 MG Capsule GT ×2 (10:50→21:45)
[2024-02-17] MEDS: Acetaminophen 650 MG/20 ML UDC GT ×2 (10:52→18:35)
[2024-02-17 10:56] LABS: Procalcitonin 22.97 ng/mL (0.00-0.09)
[2024-02-17] MEDS: fentaNYL drip 100 ML 5 MCG CONT INF (11:53)
[2024-02-17 13:33] LABS: Bedside Glucose 151 mg/dL (74-106)
[2024-02-17] MEDS: Vital AF 1.2 Cal Liquid 1,000 ML 20 ML GT (14:09)
--- NOTE | 2024-02-17 17:01 | PN.HOSP_ITS ---
Reason for Visit Reason for Visit: Diagnoses Dehydration (02/15/24) Influenza due to other identified influenza virus with other respiratory manifestations (02/15/24) Pneumonia, unspecified organism (02/15/24) Acute respiratory failure with hypoxia (02/15/24) Subjective Subjective Patient was seen and examined today, she is under light sedation on the ventilator, I talked with her who is in the room at the time my examination. Objective Data Objective Data Vital Signs: Vital Signs Temp Pulse Resp BP Pulse Ox O2 Del Method O2 Flow Rate 100.3 F H 90 17 91/69 96 Mechanical Ventilator 4 02/17/24 12:00 02/17/24 15:00 02/17/24 15:00 02/17/24 15:00 02/17/24 15:00 02/17/24 16:00 02/16/24 17:15 FiO2 40 02/17/24 16:00 Oxygen Flow Rate (L/min) 4 Oxygen Delivery Method Mechanical Ventilator Weight: 72.62 kg Body Mass Index (BMI) 29.2 Intake & Output: Intake and Output for Last 24 Hours 02/15/24 02/16/24 02/17/24 23:59 23:59 23:59 Intake Total 3724.17 / 3724.17 2350.22 / 2481.72 895.50 / 895.50 Output Total 950 / 950 200 / 200 500 / 500 Balance 2774.17 / 2774.17 2150.22 / 2281.72 395.50 / 395.50 Lab / Micro Data 02/17/24 05:56 02/17/24 05:56 Labs: Laboratory Results - last 24 hr 02/16/24 07:25: Total Creatine Kinase 1086 H, Triglycerides 100 02/16/24 23:15: POC Glucose 257 H 02/17/24 05:42: POC Glucose 177 H 02/17/24 05:56: WBC 9.0, RBC 3.91 L, Hgb 12.0, Hct 35.9 L, MCV 91.8, MCH 30.7, MCHC 33.4, RDW Std Deviation 47.7 H, RDW Coeff of Rojas 14.1, Plt Count 172, MPV 10.6, Immature Gran % (Auto) 0.400, Neut % (Auto) 83.5 H, Lymph % (Auto) 11.1 L, [place] % (Auto) 4.8, Eos % (Auto) 0.1, Baso % (Auto) 0.1, Absolute Neuts (auto) 7.5, Absolute Lymphs (auto) 1.00, Nucleated RBC % 0, Sodium 138, Potassium 3.7, Chloride 109 H, Carbon Dioxide 24.0, Anion Gap 5, BUN 21 H, Creatinine 0.85, Estim Creat Clear Calc 49.26, Est GFR (MDRD) Af Amer 83, Est GFR (MDRD) Non-Af 68, BUN/Creatinine Ratio 24.7 H, Glucose 199 H, Calcium 8.4 L, B-Natriuretic Peptide 909.4 H 02/17/24 10:15: Procalcitonin 22.97 H 02/17/24 11:48: POC Glucose 151 H Micro: Microbiology 02/16/24 19:15 Sputum, Induced/Lukens Gram Stain - Final 02/16/24 19:15 Sputum, Induced/Lukens Respiratory Culture - Preliminary Appears to be normal respiratory jade. Further studies to follow. 02/15/24 08:50 Sputum, Expectorated/Coughed Gram Stain - Final 02/15/24 08:50 Sputum, Expectorated/Coughed Respiratory Culture - Preliminary Alpha Hemolytic Streptococcus Staphylococcus aureus 02/15/24 05:18 Blood Culture (Wb) - Right Hand Blood Culture - Preliminary No growth in 48 hours. 02/15/24 05:11 Blood Culture (Wb) - Anticubital Right Blood Culture - Preliminary No growth in 48 hours. 02/15/24 11:50 Urine, Clean Catch Urine Culture - Final Culture exhibits no growth. 02/15/24 11:50 Urine, Random Legionella Antigen - Final 02/15/24 11:50 Urine, Random Streptococcus pneumoniae Antigen (M - Final 02/15/24 05:04 Mucosa - Nose SARS-CoV-2, Influenza & RSV (PCR) - Final Influenzae A ABG Data ABG results: ABG 02/16/24 02/17/24 21:06 10:26 Specimen Type BILLY ART Sample Site L Radial L Brach pH 7.45 Bicarbonate Actual 22.7 Total CO2 24 Base Excess -1 O2 Saturation 93 L O2 % 100.0 40.0 ABG pCO2 32.9 L ABG pO2 62 L Judah Test Positive VBG pH 7.36 VBG pO2 56 H VBG HCO3 19 L VBG Total CO2 20 L VBG O2 Sat (Calc) 88 H VBG Base Excess -6 L POC Mix VBG pCO2 Pt Tmp 34.6 L Respiration Rate 14 14 O2 Delivery Device Adult Vent Adult Vent Vent Mode AC Tidal Volume 450.0 450.0 POC PEEP 5 5 Radiography Diagnostic Testing: Radiology Impression Chest CTA 02/16/24 17:12 IMPRESSION: Nonspecific moderately severe airspace disease. Status post CABG. Cardiomegaly and coronary artery disease. Electronically Signed: Murray Santos MD at 20:12 EST , Head/Neck CTA 02/16/24 17:20 IMPRESSION: Airspace disease and pleural effusions otherwise Normal CTA Head and neck with contrast. Electronically Signed: Murray Santos MD at 20:35 EST Reading Location ID and State: [facility] / [place] Tel , Service support , Chest X-Ray 02/16/24 21:00 IMPRESSION: Increased airspace disease. New ETT and enteric tubes as above. Electronically Signed: Murray Santos MD at 23:18 EST , Physical Exam Const alert and no apparent distress Constitutional Narrative: Patient is lightly sedated and on the ventilator General Appearance: well kempt and well developed Orientation / Consciousness: awake HEENT normocephalic, head/scalp atraumatic and moist oral mucous membranes Eyes PERRL, EOMs intact bilaterally and conjunctivae normal Neck supple, no JVD, thyroid normal and no carotid bruits General: trachea midline Resp normal respiratory effort, no retractions, no use of accessory muscles and clear to auscultation bilaterally Auscultation: Negative for rales, rhonchi or wheezes Cardio regular rate, regular rhythm, S1 normal heart sound, S2 normal heart sound, no murmurs, no rub and no gallops GI normal to inspection, nondistended, normoactive bowel sounds, soft to palpation, non-tender and non-distended Extremity no clubbing, cyanosis or edema Skin no rashes or lesions noted General Skin Exam: no breakdown Neuro CN's II-XII intact bilaterally and no focal motor deficits Neuro Narrative: Patient is lightly sedated and on the ventilator Sensorium / Orientation: awake and alert Psych Psych Narrative: Patient is lightly sedated on the ventilator Assessment & Plan Assessment/Plan (1) Acute respiratory failure with hypoxia: PLAN: Plan 1. Acute hypoxic respiratory failure secondary to influenza A with secondary bacterial infection-patient will remain on her present antibiotics, sputum culture is growing out Staph aureus and alphahemolytic strep. According to pulmonary medicine their plan is to wean the patient's FiO2 and PEEP as tolerated #2 sepsis secondary to bacterial pneumonia and influenza A-continue present antibiotic coverage #3 type 2 diabetes-patient's blood sugars will be monitored, sliding scale insulin will be administered as needed #4 coronary artery disease-this appears stable at this time #5 elevated troponin secondary to demand ischemia-complicates care, management, recovery, and prognosis Total clinical time spent by myself addressing the patient's medical issues, reviewing all of her data, and collaborating with patient's care team: 35 minutes Charges/Coding Visit Charges Inpatient E&M: 90925 Subs Hosp L2
[2024-02-17 17:33] LABS: Bedside Glucose 159 mg/dL (74-106)
[2024-02-18] VITALS (34 sets, daily range): BP systolic 92–133; BP diastolic 49–79; PULSE 81–112; RESP 14–27; TEMP 37.9–38.9; O2SAT 94–100; BMI 29.7
[2024-02-18] MEDS: Insulin Lispro 100 UNIT/ML INSULN.PEN SC ×5 (00:22→23:33)
[2024-02-18] MEDS: Ipratropium/Albuterol Sulfate 3 ML AMPUL.NEB INHALATION ×4 (00:35→19:15)
[2024-02-18 00:45] LABS: Bedside Glucose 189 mg/dL (74-106)
[2024-02-18] MEDS: Acetaminophen 650 MG/20 ML UDC GT ×4 (03:47→23:33)
[2024-02-18] MEDS: Piperacil/Tazobactam 3.375 GM in 0.9% Normal Saline (50mL MB+) 50 ML IV ×3 (05:50→21:33)
--- NOTE | 2024-02-18 06:11 | PN.CC_ITS ---
Assessment & Plan Assessment/Plan (1) Influenza A: (2) Pneumonia: (3) Acute respiratory failure with hypoxia: PLAN: Plan RECOMMENDATIONS: 1. Continue assist-control mode of mechanical ventilation. Wean FiO2 and PEEP to maintain saturations at or above 90%. 2. Repeat spontaneous awakening and breathing trial tomorrow. 3. Continue antimicrobials. 4. Continue propofol and fentanyl for sedation with a goal to maintain a RASS of -1 to 1. 5. Continue Tamiflu as ordered. 6. Continue tube feeding as tolerated. 7. Administer IV Lasix as ordered today. 8. Continue appropriate GI and DVT prophylaxis. IMPRESSIONS: 1. Acute hypoxemic respiratory failure Appears secondary to influenza A infection with secondary bacterial pneumonia. Preliminary sputum culture is demonstrating growth of both Staph aureus and alpha hemolytic Streptococcus. The patient was ultimately intubated due to worsening respiratory failure on February 15. She is doing well on assist-control mode of mechanical ventilation. Plan to wean FiO2 and PEEP as tolerated. The patient will be continued on antimicrobials as ordered along with Tamiflu. Plan to continue paired spontaneous awakening and breathing trials to assess for readiness for extubation. 2. Sepsis The patient presented to the ICU with sepsis due to influenza A and secondary bacterial pneumonia with acute sepsis related organ dysfunction as evidenced by lactic acidemia and acute respiratory failure requiring invasive mechanical ventilatory support. The patient remains hemodynamically stable. Plan to continue antimicrobials and Tamiflu, as noted above. 3. History of coronary artery disease status post CABG/diabetes mellitus Complicates care, management, recovery and prognosis. Continue sliding scale insulin coverage for now. Physical therapy to work with the patient, once medically stabilized. Continue tube feeding as tolerated. TIME: 32 minutes of critical care time, independent of procedures, was spent addressing the patient's acute hypoxemic respiratory failure, sepsis, review of all data and collaboration with the care team. Subjective Subjective The patient was seen and examined at the bedside this morning. Events from the last 24 hours have been reviewed. The patient did have fevers overnight but remains otherwise hemodynamically stable on assist-control mode of mechanical ventilation with an FiO2 requirement of 35% and PEEP of 5. The patient failed her spontaneous breathing trial this morning due to tachypnea and nursing staff reported thick endotracheal tube secretions. White blood cell count is normal. Potassium is low at 3.2 with a normal creatinine. The patient has been tolerant of tube feeding. Objective Data Objective Data The patient's most recent lab work, culture data and imaging studies have all been personally reviewed. Influenza PCR was positive on February 14. Sputum culture is currently demonstrating growth of alpha hemolytic Streptococcus along with Staph aureus. Vital Signs: Vital Signs Temp Pulse Resp BP Pulse Ox O2 Del Method O2 Flow Rate 101.3 F H 81 14 119/60 96 Mechanical Ventilator 4 02/18/24 05:00 02/18/24 05:00 02/18/24 05:00 02/18/24 05:00 02/18/24 05:00 02/18/24 05:00 02/16/24 17:15 FiO2 35 02/18/24 05:00 Oxygen Flow Rate (L/min) 4 Oxygen Delivery Method Mechanical Ventilator Weight: 162 lb 11.2 oz Body Mass Index (BMI) 29.7 Intake & Output: Intake and Output for Last 24 Hours 02/16/24 02/17/24 02/18/24 23:59 23:59 23:59 Intake Total 2350.22 / 2481.72 1291.00 / 1422.50 592.42 / 592.42 Output Total 200 / 200 700 / 775 475 / 475 Balance 2150.22 / 2281.72 591.00 / 647.50 117.42 / 117.42 Lab / Micro Data Attestation: I reviewed the patient's lab results. 02/18/24 08:30 02/18/24 08:30 Labs: Laboratory Results - last 24 hr 02/17/24 05:42: POC Glucose 177 H 02/17/24 05:56: WBC 9.0, RBC 3.91 L, Hgb 12.0, Hct 35.9 L, MCV 91.8, MCH 30.7, MCHC 33.4, RDW Std Deviation 47.7 H, RDW Coeff of Rojas 14.1, Plt Count 172, MPV 10.6, Immature Gran % (Auto) 0.400, Neut % (Auto) 83.5 H, Lymph % (Auto) 11.1 L, [place] % (Auto) 4.8, Eos % (Auto) 0.1, Baso % (Auto) 0.1, Absolute Neuts (auto) 7.5, Absolute Lymphs (auto) 1.00, Nucleated RBC % 0, Sodium 138, Potassium 3.7, Chloride 109 H, Carbon Dioxide 24.0, Anion Gap 5, BUN 21 H, Creatinine 0.85, Estim Creat Clear Calc 49.26, Est GFR (MDRD) Af Amer 83, Est GFR (MDRD) Non-Af 68, BUN/Creatinine Ratio 24.7 H, Glucose 199 H, Calcium 8.4 L, B-Natriuretic Peptide 909.4 H 02/17/24 10:15: Procalcitonin 22.97 H 02/17/24 11:48: POC Glucose 151 H 02/17/24 17:09: POC Glucose 159 H 02/18/24 00:21: POC Glucose 189 H Micro: Microbiology 02/16/24 19:15 Sputum, Induced/Lukens Gram Stain - Final 02/16/24 19:15 Sputum, Induced/Lukens Respiratory Culture - Preliminary Appears to be normal respiratory jaed. Further studies to follow. 02/15/24 08:50 Sputum, Expectorated/Coughed Gram Stain - Final 02/15/24 08:50 Sputum, Expectorated/Coughed Respiratory Culture - Preliminary Alpha Hemolytic Streptococcus Staphylococcus aureus 02/15/24 05:18 Blood Culture (Wb) - Right Hand Blood Culture - Preliminary No growth in 48 hours. 02/15/24 05:11 Blood Culture (Wb) - Anticubital Right Blood Culture - Preliminary No growth in 48 hours. 02/15/24 11:50 Urine, Clean Catch Urine Culture - Final Culture exhibits no growth. 02/15/24 11:50 Urine, Random Legionella Antigen - Final 02/15/24 11:50 Urine, Random Streptococcus pneumoniae Antigen (M - Final 02/15/24 05:04 Mucosa - Nose SARS-CoV-2, Influenza & RSV (PCR) - Final Influenzae A ABG Data ABG results: ABG 02/17/24 10:26 Specimen Type ART Sample Site L Brach pH 7.45 Bicarbonate Actual 22.7 Total CO2 24 Base Excess -1 O2 Saturation 93 L O2 % 40.0 ABG pCO2 32.9 L ABG pO2 62 L Judah Test Positive Respiration Rate 14 O2 Delivery Device Adult Vent Vent Mode AC Tidal Volume 450.0 POC PEEP 5 Physical Exam Const Constitutional Narrative: Intubated, sedated and mechanically ventilated. No ventilator dyssynchrony. HEENT normocephalic and head/scalp atraumatic Mouth: endotracheal tube in place and OG tube in place Eyes PERRL, EOMs intact bilaterally and conjunctivae normal Neck supple General: trachea midline Chest inspection of chest normal Resp Auscultation: wheezes and diminished lung sounds Cardio regular rate and regular rhythm GI normal to inspection, nondistended, normoactive bowel sounds Extremity no clubbing, cyanosis or edema Skin no rashes or lesions noted Neuro Sensorium / Orientation: sedated on vent Charges/Coding Procedures Hospitalists Procedures: 43992 Critical Care 1st Hr
[2024-02-18 06:16] LABS: Bedside Glucose 238 mg/dL (74-106)
[2024-02-18 08:41] LABS: Absolute Lymphocyte Count 1.28 X10^3/uL (0.83-4.51); Basophil# 0.02 X10^3/uL; Basophil% 0.3 % (0-1); Eosinophil# 0.02 X10^3/uL; Eosinophils% 0.3 % (0-5); Hemoglobin 10.3 g/dL (12.0-15.0); Lymphocyte # 1.28 X10^3/ul (0.83-4.51); Lymphocyte % 16.5 % (19-41); Mean Corp Hgb Conc 33.2 g/dL (32-36); Mean Corpuscular Hgb 30.5 pg (27.0-32.0); Mean Corpuscular Volume 91.7 fL (81-99); Mean Platelet Vol. 10.2 fl (6.2-12.0); Monocyte# 0.32 X10^3/uL; Monocyte% 4.1 % (0-10); NRBC Flagged by Analyzer 0 % (0-5); Neutrophil # 5.97 X10^3/uL (2.7-7.7); Neutrophil % 77.1 % (47-70); Platelet Count 158 K/mm3 (150-450); RBC Distribution Width SD 47.5 fl (35.1-43.9); Red Blood Count 3.38 M/mm3 (4.2-5.4); White Blood Count 7.7 K/mm3 (4.4-11.0)
[2024-02-18 09:03] LABS: Anion Gap 7 (5-15); BUN 19 mg/dL (7-18); BUN/Creat Ratio 24.5 RATIO (10-20); Calcium,Total 8.4 mg/dL (8.5-10.1); Chloride 108 mmol/L (98-107); Creatinine, Serum 0.78 mg/dL (0.55-1.02); EST Glomerular Filtration Rate 76 mL/min (>60); Est Glom Filt Rate - Afr Amer 92 mL/min (>60); Estimated Creatinine Clearance 52.75 ml/min; Glucose 249 mg/dL (74-106); Potassium 3.2 mmol/L (3.5-5.1); Sodium Level 137 mmol/L (136-145)
[2024-02-18 09:27] LABS: Vancomycin, Trough Level 10.8 ug/mL (5.0-15.0)
[2024-02-18] MEDS: Potassium Chloride Oral Soln 20 MEQ/15 ML UDC 40 MEQ GT (09:40)
[2024-02-18] MEDS: Chlorhexidine 15 ML PO ×2 (09:40→20:24)
[2024-02-18] MEDS: Senna Tablet 1 TABLET GT (09:42)
[2024-02-18] MEDS: Enoxaparin 40 MG/0.4 ML Syringe SC (09:42)
[2024-02-18] MEDS: Aspirin 81 MG TAB.CHEW GT (09:42)
[2024-02-18] MEDS: Pantoprazole Sodium 40 MG in 0.9% Normal Saline (100mL MB+) 100 ML 330 MG IV (09:43)
[2024-02-18] MEDS: Menthol/Lanolin/Calamine/Znox 113 GM Tube 1 APPLIC TOPICAL ×2 (09:43→20:24)
[2024-02-18] MEDS: Oseltamivir Phosphate 75 MG Capsule GT ×2 (09:44→20:24)
[2024-02-18] MEDS: 0.9% Saline Lock 10 ML Syringe IV ×2 (09:45→10:11)
--- NOTE | 2024-02-18 09:54 | PCM.RX.CS ---
Consult Antibiotic Management Pharmacy has been consulted to manage selected antibiotic: Vancomycin Type of Intervention Type of Consult: Follow-up Suspected Infection Suspected Infection: Pneumonia Prior Doses of Antibiotics Prior Doses of Antibiotics Received/Current Regimen: Vancomycin 750 mg Q12H last dose given 02/17/24 @ 1949 Labs Labs: Sodium 137 mmol/L (136-145) 02/18/24 08:30 Potassium 3.2 mmol/L (3.5-5.1) L 02/18/24 08:30 Chloride 108 mmol/L (98-107) H 02/18/24 08:30 Carbon Dioxide 22.0 mmol/L (21.0-32.0) 02/18/24 08:30 Anion Gap 7 (5-15) 02/18/24 08:30 BUN 19 mg/dL (7-18) H 02/18/24 08:30 Creatinine 0.78 mg/dL (0.55-1.02) 02/18/24 08:30 Est GFR (MDRD) Af Amer 92 mL/min (>60) 02/18/24 08:30 Est GFR (MDRD) Non-Af 76 mL/min (>60) 02/18/24 08:30 BUN/Creatinine Ratio 24.5 RATIO (10-20) H 02/18/24 08:30 Glucose 249 mg/dL (74-106) H 02/18/24 08:30 Vancomycin Trough 10.8 ug/mL (5.0-15.0) 02/18/24 08:30 Microbiology Microbiology: Microbiology 02/16/24 19:15 Sputum, Induced/Lukens Gram Stain - Final 02/16/24 19:15 Sputum, Induced/Lukens Respiratory Culture - Preliminary Appears to be normal respiratory jade. Further studies to follow. 02/15/24 08:50 Sputum, Expectorated/Coughed Gram Stain - Final 02/15/24 08:50 Sputum, Expectorated/Coughed Respiratory Culture - Preliminary Alpha Hemolytic Streptococcus Staphylococcus aureus 02/15/24 05:18 Blood Culture (Wb) - Right Hand Blood Culture - Preliminary No growth in 48 hours. 02/15/24 05:11 Blood Culture (Wb) - Anticubital Right Blood Culture - Preliminary No growth in 48 hours. 02/15/24 11:50 Urine, Clean Catch Urine Culture - Final Culture exhibits no growth. 02/15/24 11:50 Urine, Random Legionella Antigen - Final 02/15/24 11:50 Urine, Random Streptococcus pneumoniae Antigen (M - Final 02/15/24 05:04 Mucosa - Nose SARS-CoV-2, Influenza & RSV (PCR) - Final Influenzae A Dosing Weight Weight used for dosin kg Estimated Creatinine Clearance Estimated Creatinine Clearance: ~ 83 Goal Trough Goal Trough: 15-20 mcg/mL Pharmacy Plan for Drug Dosing Pharmacy Plan for Drug Dosing: Vancomycin trough = 10.8, increase to 1000 mg Q12H Pharmacy Service will continue to monitor and adjust dosing as required. Follow-Up Labs Follow-Up Labs: Trough: Vancomycin Date/Time Labs Ordered Labs to be done on [date and time ordered]: 02/19/24 @ 5934
[2024-02-18] MEDS: Furosemide 40 MG/4 ML Vial IV (10:11)
[2024-02-18] MEDS: Vancomycin IV 1,000 MG/200 ML BAG 200 MG IV ×2 (10:11→20:25)
[2024-02-18 12:12] LABS: Bedside Glucose 301 mg/dL (74-106)
[2024-02-18] MEDS: fentaNYL drip 100 ML 5 MCG CONT INF (12:26)
[2024-02-18] MEDS: Propofol 10MG/Ml 1,000 MG/100 ML Bottle 6.5 MG CONT INF (12:27)
--- NOTE | 2024-02-18 16:08 | PCM.PN.HOSP ---
Reason for Visit Reason for Visit: Diagnoses Dehydration (02/15/24) Influenza due to other identified influenza virus with other respiratory manifestations (02/15/24) Pneumonia, unspecified organism (02/15/24) Acute respiratory failure with hypoxia (02/15/24) Subjective Subjective Patient was seen and examined today, her was in the room at the time of my examination, she failed her weaning trial today, she is on 30% oxygen and is alert under light sedation. Objective Data Objective Data Vital Signs: Vital Signs Temp Pulse Resp BP Pulse Ox O2 Del Method O2 Flow Rate 101.7 F H 101 H 15 109/59 L 97 Mechanical Ventilator 4 02/18/24 16:00 02/18/24 16:00 02/18/24 16:00 02/18/24 16:00 02/18/24 16:00 02/18/24 16:00 02/16/24 17:15 FiO2 30 02/18/24 15:34 Oxygen Flow Rate (L/min) 4 Oxygen Delivery Method Mechanical Ventilator Weight: 73.799 kg Body Mass Index (BMI) 29.7 Intake & Output: Intake and Output for Last 24 Hours 02/16/24 02/17/24 02/18/24 23:59 23:59 23:59 Intake Total 2350.22 / 2481.72 1291.00 / 1422.50 1479.85 / 1479.85 Output Total 200 / 200 700 / 775 1575 / 1575 Balance 2150.22 / 2281.72 591.00 / 647.50 -95.15 / -95.15 Lab / Micro Data 02/18/24 08:30 02/18/24 08:30 Labs: Laboratory Results - last 24 hr 02/17/24 17:09: POC Glucose 159 H 02/18/24 00:21: POC Glucose 189 H 02/18/24 05:48: POC Glucose 238 H 02/18/24 08:30: WBC 7.7, RBC 3.38 L, Hgb 10.3 L, Hct 31.0 L, MCV 91.7, MCH 30.5, MCHC 33.2, RDW Std Deviation 47.5 H, RDW Coeff of Rojas 14.0, Plt Count 158, MPV 10.2, Immature Gran % (Auto) 1.700 H, Neut % (Auto) 77.1 H, Lymph % (Auto) 16.5 L, [place] % (Auto) 4.1, Eos % (Auto) 0.3, Baso % (Auto) 0.3, Absolute Neuts (auto) 6.0, Absolute Lymphs (auto) 1.28, Nucleated RBC % 0, Sodium 137, Potassium 3.2 L, Chloride 108 H, Carbon Dioxide 22.0, Anion Gap 7, BUN 19 H, Creatinine 0.78, Estim Creat Clear Calc 52.75, Est GFR (MDRD) Af Amer 92, Est GFR (MDRD) Non-Af 76, BUN/Creatinine Ratio 24.5 H, Glucose 249 H, Calcium 8.4 L, Vancomycin Trough 10.8 02/18/24 11:52: POC Glucose 301 H Micro: Microbiology 02/15/24 08:50 Sputum, Expectorated/Coughed Gram Stain - Final 02/15/24 08:50 Sputum, Expectorated/Coughed Respiratory Culture - Final Streptococcus pneumoniae Staphylococcus aureus 02/16/24 19:15 Sputum, Induced/Lukens Gram Stain - Final 02/16/24 19:15 Sputum, Induced/Lukens Respiratory Culture - Preliminary Appears to be normal respiratory jade. Further studies to follow. 02/15/24 05:18 Blood Culture (Wb) - Right Hand Blood Culture - Preliminary No growth in 48 hours. 02/15/24 05:11 Blood Culture (Wb) - Anticubital Right Blood Culture - Preliminary No growth in 48 hours. 02/15/24 11:50 Urine, Clean Catch Urine Culture - Final Culture exhibits no growth. 02/15/24 11:50 Urine, Random Legionella Antigen - Final 02/15/24 11:50 Urine, Random Streptococcus pneumoniae Antigen (M - Final 02/15/24 05:04 Mucosa - Nose SARS-CoV-2, Influenza & RSV (PCR) - Final Influenzae A Physical Exam Narrative alert and no apparent distress Constitutional Narrative: Patient is lightly sedated and on the ventilator General Appearance: well kempt and well developed Orientation / Consciousness: awake HEENT normocephalic, head/scalp atraumatic and moist oral mucous membranes Eyes PERRL, EOMs intact bilaterally and conjunctivae normal Neck supple, no JVD, thyroid normal and no carotid bruits General: trachea midline Resp normal respiratory effort, no retractions, no use of accessory muscles and clear to auscultation bilaterally Auscultation: Negative for rales, rhonchi or wheezes Cardio regular rate, regular rhythm, S1 normal heart sound, S2 normal heart sound, no murmurs, no rub and no gallops GI normal to inspection, nondistended, normoactive bowel sounds, soft to palpation, non-tender and non-distended Extremity no clubbing, cyanosis or edema Skin no rashes or lesions noted General Skin Exam: no breakdown Neuro CN's II-XII intact bilaterally and no focal motor deficits Neuro Narrative: Patient is lightly sedated and on the ventilator Sensorium / Orientation: awake and alert Psych Psych Narrative: Patient is lightly sedated on the ventilator Assessment & Plan Assessment/Plan (1) Pneumonia: (2) Acute respiratory failure with hypoxia: PLAN: Plan 1. Acute hypoxic respiratory failure secondary to influenza A with secondary bacterial infection-patient will remain on her present antibiotics, sputum culture is growing out Staph aureus and alphahemolytic strep. Patient failed her weaning trial today, she remains on the ventilator. #2 sepsis secondary to bacterial pneumonia and influenza A-continue present antibiotic coverage #3 type 2 diabetes-patient's blood sugars will be monitored, sliding scale insulin will be administered as needed #4 coronary artery disease-this appears stable at this time #5 elevated troponin secondary to demand ischemia-complicates care, management, recovery, and prognosis Total clinical time spent by myself addressing the patient's medical issues, reviewing all of her data, and collaborating with patient's care team: 35 minutes Charges/Coding Visit Charges Inpatient E&M: 71764 Subs Hosp L2
[2024-02-18 17:32] LABS: Bedside Glucose 282 mg/dL (74-106)
[2024-02-18] MEDS: Vital AF 1.2 Cal Liquid 1,000 ML 55 ML GT (20:23)
[2024-02-18 23:48] LABS: Bedside Glucose 301 mg/dL (74-106)
[2024-02-19] VITALS (37 sets, daily range): BP systolic 91–125; BP diastolic 45–62; PULSE 77–101; RESP 14–42; TEMP 38.1–39.4; O2SAT 87–97; BMI 29.7
[2024-02-19] MEDS: Propofol 10MG/Ml 1,000 MG/100 ML Bottle 6.5 MG CONT INF (00:35)
[2024-02-19] MEDS: Ipratropium/Albuterol Sulfate 3 ML AMPUL.NEB INHALATION ×4 (01:15→19:07)
[2024-02-19 04:10] LABS: Hematocrit 30.3 % (37-47); Hemoglobin 10.1 g/dL (12.0-15.0); Mean Corp Hgb Conc 33.3 g/dL (32-36); Mean Corpuscular Hgb 30.7 pg (27.0-32.0); Mean Corpuscular Volume 92.1 fL (81-99); Mean Platelet Vol. 10.9 fl (6.2-12.0); NRBC Flagged by Analyzer 0 % (0-5); POSITIVE COUNT YES; POSITIVE DIFFERENTIAL YES; POSITIVE MORPHOLOGY YES; Platelet Count 148 K/mm3 (150-450); RBC Distribution Width SD 47.5 fl (35.1-43.9); Red Blood Count 3.29 M/mm3 (4.2-5.4); White Blood Count 5.8 K/mm3 (4.4-11.0)
[2024-02-19 04:19] LABS: Differential Indicated SCAN CRITERIA MET
[2024-02-19 04:30] LABS: Anion Gap 5 (5-15); BUN 18 mg/dL (7-18); BUN/Creat Ratio 22.4 RATIO (10-20); Calcium,Total 8.5 mg/dL (8.5-10.1); Chloride 106 mmol/L (98-107); EST Glomerular Filtration Rate 73 mL/min (>60); Est Glom Filt Rate - Afr Amer 88 mL/min (>60); Estimated Creatinine Clearance 52.75 ml/min; Glucose 355 mg/dL (74-106); Potassium 3.8 mmol/L (3.5-5.1); Sodium Level 136 mmol/L (136-145)
[2024-02-19 04:59] LABS: Differential Comment SCANNED
[2024-02-19] MEDS: fentaNYL drip 100 ML 10 MCG CONT INF ×2 (05:00→18:37)
[2024-02-19] MEDS: 0.9% Saline Lock 10 ML Syringe IV ×3 (05:05→23:38)
[2024-02-19] MEDS: Piperacil/Tazobactam 3.375 GM in 0.9% Normal Saline (50mL MB+) 50 ML IV ×3 (05:06→23:38)
[2024-02-19] MEDS: Insulin Lispro 100 UNIT/ML INSULN.PEN SC ×4 (05:06→23:40)
[2024-02-19] MEDS: TITRATION PARAMETER CHANGE 1 EACH IV (05:15)
[2024-02-19 05:33] LABS: Bedside Glucose 286 mg/dL (74-106)
[2024-02-19] MEDS: Acetaminophen 650 MG/20 ML UDC GT ×2 (06:11→15:37)
[2024-02-19] MEDS: Senna Tablet 1 TABLET GT (07:58)
[2024-02-19] MEDS: Oseltamivir Phosphate 75 MG Capsule GT ×2 (07:58→21:12)
[2024-02-19] MEDS: Menthol/Lanolin/Calamine/Znox 113 GM Tube 1 APPLIC TOPICAL ×2 (07:58→21:10)
[2024-02-19] MEDS: Enoxaparin 40 MG/0.4 ML Syringe SC (07:58)
[2024-02-19] MEDS: Aspirin 81 MG TAB.CHEW GT (07:58)
[2024-02-19] MEDS: Chlorhexidine 15 ML PO ×2 (07:58→21:10)
[2024-02-19] MEDS: Pantoprazole Sodium 40 MG in 0.9% Normal Saline (100mL MB+) 100 ML 330 MG IV (07:59)
[2024-02-19] MEDS: CHLORHEXIDINE GLUC 2% CLOTH 1 EACH TOWELETTE TOPICAL (07:59)
[2024-02-19] MEDS: Vancomycin IV 1,000 MG/200 ML BAG 200 MG IV ×2 (10:16→22:35)
--- NOTE | 2024-02-19 11:21 | PN.CC_ITS ---
Objective Data Objective Data Vital Signs: Vital Signs Last response 3 Temperature 38.4 C H 02/19/24 10:00 Temperature Source Core 02/19/24 10:00 Pulse Rate 84 02/19/24 11:00 Pulse Strength Weak (1+) 02/19/24 08:02 Respiratory Rate 14 02/19/24 11:00 Respiratory Effort Mechanically Ventilated 02/19/24 08:00 Respiratory Depth Normal 02/19/24 08:00 Respiratory Pattern Normal 02/19/24 10:10 Blood Pressure 107/54 L 02/19/24 11:00 Blood Pressure Mean 71 02/19/24 11:00 Blood Pressure Source Monitor 02/19/24 11:00 Blood Pressure Position Semi-Fowlers 02/19/24 11:00 Blood Pressure Location Right Arm 02/19/24 11:00 Pulse Ox 96 02/19/24 11:00 Oxygen Delivery Method Mechanical Ventilator 02/19/24 11:00 Oxygen Flow Rate (L/min) 4 02/16/24 17:15 Fraction of Inspired Oxygen (FIO2) 30 02/19/24 11:00 I&O: I&O Last 24 Hours 3 02/18/24 02/18/24 02/19/24 11:59 23:59 11:59 Intake Total 1364.62 / 2567.60 1191.48 / 2567.60 1340.52 / 1340.52 Output Total 475 / 2625 2150 / 2625 725 / 725 Balance 889.62 / -57.40 -958.52 / -57.40 615.52 / 615.52 I&O: Total Stay 3 02/15/24 04:37 thru 02/19/24 11:15 Intake Total 24670.01 Output Total 5200 Balance 6062.01 Current Meds Ordered / Administered: Current meds ordered / Administered 3 Generic Name Dose Route Start Last Admin Trade Name Freq PRN Reason Stop Dose Admin Acetaminophen 650 mg 02/16/24 20:27 02/19/24 06:11 Acetaminophen 650 Mg/20 Ml Udc GT 650 mg Q6H PRN PRN Administration Pain 1-10 Or Fever >100.7 Albuterol/Ipratropium 3 ml 02/15/24 08:27 02/19/24 06:44 Ipratropium/Albuterol Sulfate 3 Ml Ampul.Neb INHALATION 3 ml Q6H.RT CALVIN Administration Aspirin 81 mg 02/17/24 10:00 02/19/24 07:58 Aspirin 81 Mg Tab.Chew GT 81 mg DAILY CALVIN Administration Calamine/Phenol 1 applic 02/16/24 22:00 02/19/24 07:58 Menthol/Lanolin/Calamine/Znox 113 Gm Tube TOPICAL 1 applic BID CALVIN Administration Protocol Chlorhexidine Gluconate 15 ml 02/16/24 22:00 02/19/24 07:58 Chlorhexidine 15 Ml PO 15 ml BID CALVIN Administration Chlorhexidine Gluconate 1 each 02/19/24 10:00 02/19/24 07:59 Chlorhexidine Gluc 2% Cloth 1 Each [place] TOPICAL 1 each DAILY CALVIN Administration Enoxaparin Sodium 40 mg 02/15/24 10:00 02/19/24 07:58 Enoxaparin 40 Mg/0.4 Ml Syringe SC 40 mg DAILY CALVIN Administration Glucagon 1 mg 02/15/24 08:27 Glucagon 1 Mg/Ml Syringe IM X1 PRN HYPOGLYCEMIA Protocol Dextrose 250 mls @ 0 mls/hr 02/15/24 08:27 Dextrose 10%-Water IV .Q0M PRN HYPOGLYCEMIA Protocol As Directed Vancomycin IV-PHARMACY TO DOSE 500 mls @ 250 mls/hr 02/16/24 17:53 1 each/ Sodium Chloride IV X1 PRN Rx to Dose Protocol Piperacillin Sod/Tazobactam 50 mls @ 12.5 mls/hr 02/16/24 22:00 02/19/24 09:26 Sod 3.375 gm/ Sodium Chloride IV Infused Q8 CALVIN Infusion Propofol 1,000 mg in 100 mls @ 4.398 mls/hr 02/16/24 18:39 02/19/24 10:15 Diprivan CONT INF 10 mcg/kg/min .Q12H CALVIN 4.4 mls/hr Titration Protocol 10 MCG/KG/MIN Pantoprazole Sodium 40 mg/ 110 mls @ 330 mls/hr 02/17/24 10:00 02/19/24 09:16 Sodium Chloride IV Infused Q24 CALVIN Infusion Fentanyl 100 mls @ 2.5 mls/hr 02/16/24 18:39 02/19/24 10:15 CONT INF 75 mcg/hr UD CALVIN 7.5 mls/hr Titration Protocol 25 MCG/HR Enteral Nutritional Formula 1,000 mls @ 55 mls/hr 02/17/24 13:25 02/19/24 10:15 Vital Af 1.2 Conrad Liquid GT 55 mls/hr .[id number] CALVIN Infusion Vancomycin HCl 1,000 mg in 200 mls @ 200 mls/hr 02/18/24 10:00 02/19/24 10:16 Vancomycin IV 200 mls/hr Q12H CALVIN Administration Insulin Human Lispro 0 unit 02/17/24 06:00 02/19/24 05:06 Insulin Lispro 100 Unit/Ml Insuln.Pen SC 4 unit Q6 CALVIN Administration Protocol Nitroglycerin 0.4 mg 02/15/24 08:27 Nitroglycerin (Inpatient Use) 0.4 Mg Tab.Subl SL Q5M PRN CARDIAC/CHEST PAIN Ondansetron HCl 4 mg 02/15/24 08:27 Ondansetron 4 Mg/2 Ml Vial IV Q8H PRN PRN NAUSEA/VOMITING Oseltamivir Phosphate 75 mg 02/16/24 22:00 02/19/24 07:58 Oseltamivir Phosphate 75 Mg Capsule GT 02/19/24 22:01 75 mg BID CALVIN Administration Senna 1 tablet 02/17/24 10:00 02/19/24 07:58 Senna Tablet GT 1 tablet DAILY CALVIN Administration Sodium Chloride 10 - 40 ml 02/15/24 08:51 02/19/24 05:05 0.9% Saline Lock 10 Ml Syringe IV 10 ml UD PRN Administration SALINE FLUSH Sodium Chloride 100 ml 02/18/24 22:11 0.9% Normal Saline 100 Ml Iv.Soln. IV PRN PRN Irritable Bowel Syndrome Vancomycin Protocol 1 lab 02/19/24 19:30 Vancomycin Trough/Random Due MC 02/19/24 23:30 DAILY [facility] Lab / Micro Data 02/19/24 04:02 02/19/24 04:02 Labs: Laboratory Results - last 24 hr 02/18/24 11:52: POC Glucose 301 H 02/18/24 17:07: POC Glucose 282 H 02/18/24 23:31: POC Glucose 301 H 02/19/24 04:02: WBC 5.8, RBC 3.29 L, Hgb 10.1 L, Hct 30.3 L, MCV 92.1, MCH 30.7, MCHC 33.3, RDW Std Deviation 47.5 H, RDW Coeff of [place] 14.0, Plt Count 148 L, MPV 10.9, Immature Gran % (Auto) 8.300 H, Neut % (Auto) 76.3 H, Lymph % (Auto) 10.2 L, [place] % (Auto) 4.5, Eos % (Auto) 0.2, Baso % (Auto) 0.5, Absolute Neuts (auto) 4.4, Absolute Lymphs (auto) 0.59 L, Nucleated RBC % 0, Differential Comment SCANNED, Sodium 136, Potassium 3.8, Chloride 106, Carbon Dioxide 25.0, Anion Gap 5, BUN 18, Creatinine 0.80, Estim Creat Clear Calc 52.75, Est GFR (MDRD) Af Amer 88, Est GFR (MDRD) Non-Af 73, BUN/Creatinine Ratio 22.4 H, Glucose 355 H, Calcium 8.5 02/19/24 05:04: POC Glucose 286 H Micro: Microbiology 02/15/24 08:50 Sputum, Expectorated/Coughed Gram Stain - Final 02/15/24 08:50 Sputum, Expectorated/Coughed Respiratory Culture - Final Streptococcus pneumoniae Staphylococcus aureus Assessment and Plan . Assessment and plan: Patient seen and examined Chart and data reviewed Elderly woman admitted 02/15/24 w/ acute respiratory failure d/t influenza infection and likely secondary bacterial PNA. On 02/16/24 she required invasive MV support. IMaging reveals severe R>L airspace disease. SPCX reveals MSSA and pneumococcus. She is diabetic and has severe ASCVD w/ h/o CABG. She has received anti-virals and anti-bacterials. 02/19/24 She remains ill Did not tolerated SBT well today Ongoing fever Copious thick airway secretions MV 7-8 LPM, O2 0.3 I/O net (+)(+) EXAM GEN NAD VS as above HEENT JONH NECK supple COR RRR CHEST coarse ABD soft EXT modest edema SKIN w/d JEFF sedated ASSESSMENT 1. Acute respiratory failure requiring MV support 2. Suspected bacterial PNA 3. Influenza infection 4. DM / ASCVD TREATMENT PLAN -MV support -SAT/SBT in am -anti-virals and anti-bacterials -TF / sq insulin -try IV hydrocortisone -sq LMWH -keep I/O (-) Critical Care Time: 50 min The entirety of this encounter was done via Telemedicine
[2024-02-19] MEDS: Insulin Glargine-YFGN 100 UNIT/ML Pen 30 UNIT SC (12:26)
[2024-02-19] MEDS: Furosemide 100 MG/10 ML Vial 60 MG IV ×2 (12:26→17:27)
[2024-02-19 12:48] LABS: Bedside Glucose 271 mg/dL (74-106)
[2024-02-19] MEDS: Vital AF 1.2 Cal Liquid 1,000 ML 55 ML GT (15:37)
[2024-02-19] MEDS: Propofol 10MG/Ml 1,000 MG/100 ML Bottle 4.4 MG CONT INF (15:37)
--- NOTE | 2024-02-19 17:03 | PN.HOSP_ITS ---
Reason for Visit Reason for Visit: Diagnoses Dehydration (02/15/24) Influenza due to other identified influenza virus with other respiratory manifestations (02/15/24) Pneumonia, unspecified organism (02/15/24) Acute respiratory failure with hypoxia (02/15/24) Subjective Subjective Patient was seen and examined today, she remains on the ventilator under minimal sedation. Nurses state they are continue to get a lot of secretions from the patient. Objective Data Objective Data Vital Signs: Vital Signs Temp Pulse Resp BP Pulse Ox O2 Del Method O2 Flow Rate 103.0 F H 100 17 96/51 L 91 Mechanical Ventilator 4 02/19/24 16:00 02/19/24 16:00 02/19/24 16:00 02/19/24 16:00 02/19/24 16:00 02/19/24 16:00 02/16/24 17:15 FiO2 30 02/19/24 16:00 Oxygen Flow Rate (L/min) 4 Oxygen Delivery Method Mechanical Ventilator Weight: 73.3 kg Body Mass Index (BMI) 29.7 Intake & Output: Intake and Output for Last 24 Hours 02/17/24 02/18/24 02/19/24 23:59 23:59 23:59 Intake Total 1291.00 / 1422.50 2556.10 / 2567.60 2144.93 / 2144.93 Output Total 700 / 775 2625 / 2625 1150 / 1150 Balance 591.00 / 647.50 -68.90 / -57.40 994.93 / 994.93 Lab / Micro Data 02/19/24 04:02 02/19/24 04:02 Labs: Laboratory Results - last 24 hr 02/18/24 17:07: POC Glucose 282 H 02/18/24 23:31: POC Glucose 301 H 02/19/24 04:02: WBC 5.8, RBC 3.29 L, Hgb 10.1 L, Hct 30.3 L, MCV 92.1, MCH 30.7, MCHC 33.3, RDW Std Deviation 47.5 H, RDW Coeff of Rojas 14.0, Plt Count 148 L, MPV 10.9, Immature Gran % (Auto) 8.300 H, Neut % (Auto) 76.3 H, Lymph % (Auto) 10.2 L, [place] % (Auto) 4.5, Eos % (Auto) 0.2, Baso % (Auto) 0.5, Absolute Neuts (auto) 4.4, Absolute Lymphs (auto) 0.59 L, Nucleated RBC % 0, Differential Comment SCANNED, Sodium 136, Potassium 3.8, Chloride 106, Carbon Dioxide 25.0, Anion Gap 5, BUN 18, Creatinine 0.80, Estim Creat Clear Calc 52.75, Est GFR (MDRD) Af Amer 88, Est GFR (MDRD) Non-Af 73, BUN/Creatinine Ratio 22.4 H, Glucose 355 H, Calcium 8.5 02/19/24 05:04: POC Glucose 286 H 02/19/24 12:25: POC Glucose 271 H Micro: Microbiology 02/16/24 19:15 Sputum, Induced/Lukens Gram Stain - Final 02/16/24 19:15 Sputum, Induced/Lukens Respiratory Culture - Final Mixed normal respiratory jade. No Streptococcus pneumoniae, beta-hemolytic Streptococcus or Staphylococcus aureus isolated. 02/15/24 08:50 Sputum, Expectorated/Coughed Gram Stain - Final 02/15/24 08:50 Sputum, Expectorated/Coughed Respiratory Culture - Final Streptococcus pneumoniae Staphylococcus aureus 02/15/24 05:18 Blood Culture (Wb) - Right Hand Blood Culture - Preliminary No growth in 48 hours. 02/15/24 05:11 Blood Culture (Wb) - Anticubital Right Blood Culture - Preliminary No growth in 48 hours. 02/15/24 11:50 Urine, Clean Catch Urine Culture - Final Culture exhibits no growth. 02/15/24 11:50 Urine, Random Legionella Antigen - Final 02/15/24 11:50 Urine, Random Streptococcus pneumoniae Antigen (M - Final 02/15/24 05:04 Mucosa - Nose SARS-CoV-2, Influenza & RSV (PCR) - Final Influenzae A Physical Exam Narrative alert and no apparent distress Constitutional Narrative: Patient is lightly sedated and on the ventilator General Appearance: well kempt and well developed Orientation / Consciousness: awake HEENT normocephalic, head/scalp atraumatic and moist oral mucous membranes Eyes PERRL, EOMs intact bilaterally and conjunctivae normal Neck supple, no JVD, thyroid normal and no carotid bruits General: trachea midline Resp normal respiratory effort, no retractions, no use of accessory muscles and clear to auscultation bilaterally Auscultation: Negative for rales, rhonchi or wheezes Cardio regular rate, regular rhythm, S1 normal heart sound, S2 normal heart sound, no murmurs, no rub and no gallops GI normal to inspection, nondistended, normoactive bowel sounds, soft to palpation, non-tender and non-distended Extremity no clubbing, cyanosis or edema Skin no rashes or lesions noted General Skin Exam: no breakdown Neuro CN's II-XII intact bilaterally and no focal motor deficits Neuro Narrative: Patient is lightly sedated and on the ventilator Sensorium / Orientation: awake and alert Psych Psych Narrative: Patient is lightly sedated on the ventilator Assessment & Plan Assessment/Plan (1) Acute respiratory failure with hypoxia: (2) Pneumonia: PLAN: Plan 1. Acute hypoxic respiratory failure secondary to influenza A with secondary bacterial infection-patient will remain on her present antibiotics, sputum culture is growing out Staph aureus and alphahemolytic strep. Patient failed her weaning trial today, she remains on the ventilator. #2 sepsis secondary to bacterial pneumonia and influenza A-continue present antibiotic coverage #3 type 2 diabetes-patient's blood sugars will be monitored, sliding scale insulin will be administered as needed #4 coronary artery disease-this appears stable at this time #5 elevated troponin secondary to demand ischemia-complicates care, management, recovery, and prognosis Total clinical time spent by myself addressing the patient's medical issues, reviewing all of her data, and collaborating with patient's care team: 35 minutes Charges/Coding Visit Charges Inpatient E&M: 78923 Subs Hosp L2
[2024-02-19 17:51] LABS: Bedside Glucose 333 mg/dL (74-106)
[2024-02-19] MEDS: Vancomycin Trough/Random Due 1 LAB MC (21:17)
[2024-02-19 22:11] LABS: Scan Smear per Review Criteria MANUAL DIFF
[2024-02-19 22:18] LABS: Lymphocyte 7 % (19-41); Monocyte 9 % (0-10); Neutrophil-Segmented 84 % (47-70); Total Cells Counted 100 (MANUAL DIFF)
[2024-02-19 22:23] LABS: Absolute Neutrophil Count 4.9 X10^3/uL (2.0-7.7)
[2024-02-19 22:24] LABS: Absolute Lymphocyte Count 0.41 X10^3/uL (0.83-4.51); Lymphocyte # 0.41 X10^3/ul (0.83-4.51)
[2024-02-19 22:27] LABS: Vancomycin, Trough Level 15.3 ug/mL (5.0-15.0)
--- NOTE | 2024-02-19 22:45 | PCM.RX.CS ---
Consult Antibiotic Management Pharmacy has been consulted to manage selected antibiotic: Vancomycin Type of Intervention Type of Consult: Follow-up Labs Labs: Sodium 136 mmol/L (136-145) 02/19/24 04:02 Potassium 3.8 mmol/L (3.5-5.1) 02/19/24 04:02 Chloride 106 mmol/L (98-107) 02/19/24 04:02 Carbon Dioxide 25.0 mmol/L (21.0-32.0) 02/19/24 04:02 Anion Gap 5 (5-15) 02/19/24 04:02 BUN 18 mg/dL (7-18) 02/19/24 04:02 Creatinine 0.80 mg/dL (0.55-1.02) 02/19/24 04:02 Est GFR (MDRD) Af Amer 88 mL/min (>60) 02/19/24 04:02 Est GFR (MDRD) Non-Af 73 mL/min (>60) 02/19/24 04:02 BUN/Creatinine Ratio 22.4 RATIO (10-20) H 02/19/24 04:02 Glucose 355 mg/dL (74-106) H 02/19/24 04:02 Vancomycin Trough 15.3 ug/mL (5.0-15.0) H 02/19/24 21:25 Microbiology Microbiology: Microbiology 02/16/24 19:15 Sputum, Induced/Lukens Gram Stain - Final 02/16/24 19:15 Sputum, Induced/Lukens Respiratory Culture - Final Mixed normal respiratory jade. No Streptococcus pneumoniae, beta-hemolytic Streptococcus or Staphylococcus aureus isolated. 02/15/24 08:50 Sputum, Expectorated/Coughed Gram Stain - Final 02/15/24 08:50 Sputum, Expectorated/Coughed Respiratory Culture - Final Streptococcus pneumoniae Staphylococcus aureus 02/15/24 05:18 Blood Culture (Wb) - Right Hand Blood Culture - Preliminary No growth in 48 hours. 02/15/24 05:11 Blood Culture (Wb) - Anticubital Right Blood Culture - Preliminary No growth in 48 hours. 02/15/24 11:50 Urine, Clean Catch Urine Culture - Final Culture exhibits no growth. 02/15/24 11:50 Urine, Random Legionella Antigen - Final 02/15/24 11:50 Urine, Random Streptococcus pneumoniae Antigen (M - Final 02/15/24 05:04 Mucosa - Nose SARS-CoV-2, Influenza & RSV (PCR) - Final Influenzae A Goal Trough Goal Trough: 15-20 mcg/mL Pharmacy Plan for Drug Dosing Pharmacy Plan for Drug Dosing: Pharmacy Service will continue to monitor and adjust dosing as required. TROUGH 15.3 @ 11 HOURS. NO CHANGES, FOLLOW UP TROUGH IN 2 DAYS Follow-Up Labs Follow-Up Labs: Trough: Vancomycin Date/Time Labs Ordered Labs to be done on [date and time ordered]: 02/20 @ 0798
[2024-02-19] MEDS: Hydrocortisone Sod Succinate 100 MG/2 ML Vial IV (23:39)
[2024-02-20] VITALS (38 sets, daily range): BP systolic 101–131; BP diastolic 47–67; PULSE 71–91; RESP 12–32; TEMP 37.1–38.2; O2SAT 90–96; BMI 29.2
[2024-02-20 00:03] LABS: Bedside Glucose 384 mg/dL (74-106)
[2024-02-20] MEDS: Ipratropium/Albuterol Sulfate 3 ML AMPUL.NEB INHALATION ×4 (01:52→19:06)
[2024-02-20] MEDS: 0.9% Saline Lock 10 ML Syringe IV ×3 (03:18→11:26)
[2024-02-20] MEDS: Propofol 10MG/Ml 1,000 MG/100 ML Bottle 2.2 MG CONT INF (03:18)
[2024-02-20 03:24] LABS: Absolute Lymphocyte Count 0.72 X10^3/uL (0.83-4.51); Absolute Neutrophil Count 6.5 X10^3/uL (2.0-7.7); Basophil# 0.04 X10^3/uL; Basophil% 0.5 % (0-1); Eosinophil# 0.01 X10^3/uL; Eosinophils% 0.1 % (0-5); Hematocrit 31.3 % (37-47); Hemoglobin 10.4 g/dL (12.0-15.0); Lymphocyte # 0.72 X10^3/ul (0.83-4.51); Lymphocyte % 9.2 % (19-41); Mean Corp Hgb Conc 33.2 g/dL (32-36); Mean Corpuscular Hgb 30.1 pg (27.0-32.0); Mean Corpuscular Volume 90.5 fL (81-99); Mean Platelet Vol. 10.9 fl (6.2-12.0); Monocyte% 2.5 % (0-10); NRBC Flagged by Analyzer 0.3 % (0-5); Neutrophil % 82.9 % (47-70); Platelet Count 192 K/mm3 (150-450); RBC Distribution Width SD 46.2 fl (35.1-43.9); Red Blood Count 3.46 M/mm3 (4.2-5.4); White Blood Count 7.9 K/mm3 (4.4-11.0)
[2024-02-20 03:44] LABS: BNP,B-Type NATRIURETIC PEPTIDE 721.5 pg/mL (0-100)
[2024-02-20 03:45] LABS: ALB/GLOB Ratio 0.4 RATIO (0.9-2.4); AST(SGOT) 54 U/L (15-37); Alanine Aminotransfer ALT/SGPT 58 U/L (13-56); Albumin, Serum 1.9 g/dL (3.2-5.0); Alkaline Phosphatase 301 U/L (45-117); Anion Gap 7 (5-15); BUN 23 mg/dL (7-18); BUN/Creat Ratio 24.1 RATIO (10-20); Calcium,Total 8.7 mg/dL (8.5-10.1); Chloride 101 mmol/L (98-107); Creatinine, Serum 0.95 mg/dL (0.55-1.02); EST Glomerular Filtration Rate 60 mL/min (>60); Est Glom Filt Rate - Afr Amer 73 mL/min (>60); Estimated Creatinine Clearance 44.27 ml/min; Globulin 4.6 g/dL (2.2-4.2); Glucose 434 mg/dL (74-106); Protein, Total 6.5 g/dL (6.4-8.2); Sodium Level 136 mmol/L (136-145)
[2024-02-20 04:35] LABS: Magnesium 2.1 mg/dL (1.6-2.6); Phosphorus 2.2 mg/dL (2.5-4.9)
[2024-02-20] MEDS: Potassium Chloride 10mEq/100mL 10 MEQ/100 ML IV.SOLN. 100 MEQ IV BOLUS ×4 (05:06→09:22)
[2024-02-20] MEDS: Piperacil/Tazobactam 3.375 GM in 0.9% Normal Saline (50mL MB+) 50 ML IV ×2 (05:06→13:31)
[2024-02-20] MEDS: Insulin Lispro 100 UNIT/ML INSULN.PEN SC ×4 (05:11→20:48)
[2024-02-20] MEDS: Hydrocortisone Sod Succinate 100 MG/2 ML Vial IV ×2 (05:11→13:27)
[2024-02-20 05:37] LABS: Bedside Glucose 387 mg/dL (74-106)
--- NOTE | 2024-02-20 05:45 | RAD_ITS ---
INDICATION: ARF EXAMINATION/TECHNIQUE: X-RAY - XR Chest 1 View COMPARISON: February 16, 2024 FINDINGS: LINES/DEVICES: There is an endotracheal tube in place terminating 3.6 cm above the elizabeth. There is an enteric tube in place terminating distal to the gastroesophageal junction and the inferior margin of the image. LUNGS: There is improved aeration of the left upper lung. There are persistent patchy opacities within the right mid and bilateral lower lungs. No pneumothorax. MEDIASTINUM AND CARDIOVASCULAR STRUCTURES: Cardiac silhouette not enlarged. Central airways and mediastinal contour are unremarkable. BONES AND SOFT TISSUES: Unremarkable. RAD/Chest 1 View (Portable) IMPRESSION: Improved aeration of the left upper lobe with persistent bilateral patchy opacities within the right mid and bilateral lower lungs may reflect some combination of pneumonia, atelectasis and/or edema. Electronically Signed: Sintia Callahan MD at 13:02 EST ,
[2024-02-20] MEDS: fentaNYL drip 100 ML 7.5 MCG CONT INF (06:33)
[2024-02-20 07:23] LABS: Base Excess 5 mmol/L (-2 to +2); Bicarbonate 27.9 mmol/L (22-26); Blood Gas Specimen Type ART; Mode AC; O2 Delivery Device Adult Vent; PEEP 5; PO2 57 mmHG (75-100); RR 14; SITE R Brach; SO2 92 % (95-99); Total Carbon Dioxide 29 mmol/L; pCO2 35.5 mmHg (35-45); pH 7.51 (7.35-7.45)
--- NOTE | 2024-02-20 08:41 | PN.HOSP_ITS ---
Reason for Visit Reason for Visit: Diagnoses Dehydration (02/15/24) Influenza due to other identified influenza virus with other respiratory manifestations (02/15/24) Pneumonia, unspecified organism (02/15/24) Acute respiratory failure with hypoxia (02/15/24) Subjective Subjective Patient was seen and examined today, she remains on the ventilator under light sedation, they will be weaning trial today to see if she is able to come off the vent. Patient was placed on IV corticosteroids yesterday, her blood sugars have been elevated and I increased her insulin today. Critical care gave her Lasix yesterday. Objective Data Objective Data Vital Signs: Vital Signs Temp Pulse Resp BP Pulse Ox O2 Del Method O2 Flow Rate 100.5 F H 77 14 107/51 L 93 Mechanical Ventilator 4 02/20/24 03:00 02/20/24 07:01 02/20/24 07:01 02/20/24 07:00 02/20/24 07:01 02/20/24 07:47 02/16/24 17:15 FiO2 30 02/20/24 07:47 Oxygen Flow Rate (L/min) 4 Oxygen Delivery Method Mechanical Ventilator Weight: 72.484 kg Body Mass Index (BMI) 29.2 Intake & Output: Intake and Output for Last 24 Hours 02/18/24 02/19/24 02/20/24 23:59 23:59 23:59 Intake Total 2556.10 / 2567.60 2565.90 / 2650.60 552.61 / 552.61 Output Total 2625 / 2625 2050 / 2050 975 / 975 Balance -68.90 / -57.40 515.90 / 600.60 -422.39 / -422.39 Lab / Micro Data 02/20/24 03:10 02/20/24 03:10 Labs: Laboratory Results - last 24 hr 02/19/24 04:02: WBC 5.8, RBC 3.29 L, Hgb 10.1 L, Hct 30.3 L, MCV 92.1, MCH 30.7, MCHC 33.3, RDW Std Deviation 47.5 H, RDW Coeff of Rojas 14.0, Plt Count 148 L, MPV 10.9, Immature Gran % (Auto) WAREHOUSE EXAMINER, Neut % (Auto) WAREHOUSE EXAMINER, Lymph % (Auto) WAREHOUSE EXAMINER, [place] % (Auto) WAREHOUSE EXAMINER, Eos % (Auto) WAREHOUSE EXAMINER, Baso % (Auto) WAREHOUSE EXAMINER, Absolute Neuts (auto) 4.9, A bsolute Lymphs (auto) 0.41 L, Total Counted 100, Neutrophils % (Manual) 84 H, L ymphocytes % (Manual) 7 L, Monocytes % (Manual) 9, Nucleated RBC % 0, Differential Comment SCANNED, Diff Path Review June02/19/24 12:25: POC Glucose 271 H 02/19/24 17:24: POC Glucose 333 H 02/19/24 21:25: Vancomycin Trough 15.3 H 02/19/24 23:40: POC Glucose 384 H 02/20/24 03:10: WBC 7.9, RBC 3.46 L, Hgb 10.4 L, Hct 31.3 L, MCV 90.5, MCH 30.1, MCHC 33.2, RDW Std Deviation 46.2 H, RDW Coeff of Rojas 14.0, Plt Count 192, MPV 10.9, Immature Gran % (Auto) 4.800 H, Neut % (Auto) 82.9 H, Lymph % (Auto) 9.2 L , [place] % (Auto) 2.5, Eos % (Auto) 0.1, Baso % (Auto) 0.5, Absolute Neuts (auto) 6.5, Absolute Lymphs (auto) 0.72 L, Nucleated RBC % 0.3, Sodium 136, Potassium 3.0 L, Chloride 101, Carbon Dioxide 28.0, Anion Gap 7, BUN 23 H, Creatinine 0.95, Estim Creat Clear Calc 44.27, Est GFR (MDRD) Af Amer 73, Est GFR (MDRD) Non-Af 60, BUN/Creatinine Ratio 24.1 H, Glucose 434 H, Calcium 8.7, Phosphorus 2.2 L, Magnesium 2.1, Total Bilirubin 0.60, AST 54 H, ALT 58 H, Alkaline Phosphatase 301 H, B-Natriuretic Peptide 721.5 H, Total Protein 6.5, Albumin 1.9 L, Globulin 4.6 H, Albumin/Globulin Ratio 0.4 L 02/20/24 05:10: POC Glucose 387 H Micro: Microbiology 02/15/24 05:11 Blood Culture (Wb) - Anticubital Right Blood Culture - Final No growth in 5 days. 02/15/24 05:18 Blood Culture (Wb) - Right Hand Blood Culture - Final No growth in 5 days. 02/16/24 19:15 Sputum, Induced/Lukens Gram Stain - Final 02/16/24 19:15 Sputum, Induced/Lukens Respiratory Culture - Final Mixed normal respiratory jade. No Streptococcus pneumoniae, beta-hemolytic Streptococcus or Staphylococcus aureus isolated. 02/15/24 08:50 Sputum, Expectorated/Coughed Gram Stain - Final 02/15/24 08:50 Sputum, Expectorated/Coughed Respiratory Culture - Final Streptococcus pneumoniae Staphylococcus aureus 02/15/24 11:50 Urine, Clean Catch Urine Culture - Final Culture exhibits no growth. 02/15/24 11:50 Urine, Random Legionella Antigen - Final 02/15/24 11:50 Urine, Random Streptococcus pneumoniae Antigen (M - Final 02/15/24 05:04 Mucosa - Nose SARS-CoV-2, Influenza & RSV (PCR) - Final Influenzae A ABG Data ABG results: ABG 02/20/24 07:19 Specimen Type ART Sample Site R Brach pH 7.51 H Bicarbonate Actual 27.9 H Total CO2 29 Base Excess 5 H O2 Saturation 92 L O2 % 30.0 ABG pCO2 35.5 ABG pO2 57 L Respiration Rate 14 O2 Delivery Device Adult Vent Vent Mode AC Tidal Volume 450.0 POC PEEP 5 Physical Exam Narrative alert and no apparent distress Constitutional Narrative: Patient is lightly sedated and on the ventilator General Appearance: well kempt and well developed Orientation / Consciousness: awake HEENT normocephalic, head/scalp atraumatic and moist oral mucous membranes Eyes PERRL, EOMs intact bilaterally and conjunctivae normal Neck supple, no JVD, thyroid normal and no carotid bruits General: trachea midline Resp normal respiratory effort, no retractions, no use of accessory muscles and clear to auscultation bilaterally Auscultation: Negative for rales, rhonchi or wheezes Cardio regular rate, regular rhythm, S1 normal heart sound, S2 normal heart sound, no murmurs, no rub and no gallops GI normal to inspection, nondistended, normoactive bowel sounds, soft to palpation, non-tender and non-distended Extremity no clubbing, cyanosis or edema Skin no rashes or lesions noted General Skin Exam: no breakdown Neuro CN's II-XII intact bilaterally and no focal motor deficits Neuro Narrative: Patient is lightly sedated and on the ventilator Sensorium / Orientation: awake and alert Psych Psych Narrative: Patient is lightly sedated on the ventilator Assessment & Plan Assessment/Plan (1) Acute respiratory failure with hypoxia: (2) Pneumonia: PLAN: Plan 1. Acute hypoxic respiratory failure secondary to influenza A with secondary bacterial infection-patient will remain on her present antibiotics, sputum culture is growing out Staph aureus and alphahemolytic strep. Patient will have a weaning trial today. #2 sepsis secondary to bacterial pneumonia and influenza A-continue present antibiotic coverage #3 type 2 diabetes-patient's blood sugars will be monitored, sliding scale insulin will be administered as needed, I increased the patient's Lantus insulin today #4 coronary artery disease-this appears stable at this time #5 elevated troponin secondary to demand ischemia-complicates care, management, recovery, and prognosis #6 hypokalemia-patient was given IV potassium supplementation today Total clinical time spent by myself addressing the patient's medical issues, reviewing all of her data, and collaborating with patient's care team: 35 minutes Charges/Coding Visit Charges Inpatient E&M: 99261 Subs Hosp L2
[2024-02-20] MEDS: Pantoprazole Sodium 40 MG in 0.9% Normal Saline (100mL MB+) 100 ML 330 MG IV (08:49)
[2024-02-20] MEDS: Acetaminophen 650 MG/20 ML UDC GT (08:50)
[2024-02-20] MEDS: Menthol/Lanolin/Calamine/Znox 113 GM Tube 1 APPLIC TOPICAL ×2 (08:51→20:48)
[2024-02-20] MEDS: Chlorhexidine 15 ML PO (08:51)
[2024-02-20] MEDS: Vancomycin IV 1,000 MG/200 ML BAG 200 MG IV (08:51)
[2024-02-20] MEDS: Enoxaparin 40 MG/0.4 ML Syringe SC (08:55)
[2024-02-20] MEDS: Aspirin 81 MG TAB.CHEW GT (08:56)
[2024-02-20] MEDS: Senna Tablet 1 TABLET GT (08:56)
[2024-02-20] MEDS: CHLORHEXIDINE GLUC 2% CLOTH 1 EACH TOWELETTE TOPICAL (08:58)
[2024-02-20] MEDS: Insulin Glargine-YFGN 100 UNIT/ML Pen 50 UNIT SC (09:03)
--- NOTE | 2024-02-20 11:19 | NURSING ---
Ventillator removed at 1105, restraints discontinued, OG removed, pt placed on 3L NC
--- NOTE | 2024-02-20 12:52 | PCM.PN.TICU ---
Objective Data Objective Data Vital Signs: Vital Signs Last response Temperature 37.5 C H 02/20/24 12:00 Temperature Source Core 02/20/24 12:00 Pulse Rate 81 02/20/24 12:00 Pulse Strength Weak (1+) 02/20/24 07:55 Respiratory Rate 29 H 02/20/24 12:00 Respiratory Effort Mechanically Ventilated 02/20/24 07:47 Respiratory Depth Normal 02/20/24 04:00 Respiratory Pattern Normal 02/20/24 09:58 Blood Pressure 116/59 L 02/20/24 12:00 Blood Pressure Mean 78 02/20/24 12:00 Blood Pressure Source Monitor 02/20/24 12:00 Blood Pressure Position Semi-Fowlers 02/20/24 12:00 Blood Pressure Location Left Arm 02/20/24 12:00 Pulse Ox 92 02/20/24 12:39 Oxygen Delivery Method Nasal Cannula 02/20/24 12:00 Oxygen Flow Rate (L/min) 5 02/20/24 12:39 Fraction of Inspired Oxygen (FIO2) 30 02/20/24 11:00 I&O: I&O Last 24 Hours 02/19/24 02/20/24 02/20/24 23:59 11:59 23:59 Intake Total 1015.35 / 2650.60 2132.01 / 2132.01 Output Total 1325 / 2050 975 / 1175 200 / 1175 Balance -309.65 / 600.60 1157.01 / 957.01 -200 / 957.01 I&O: Total Stay 02/15/24 04:37 thru 02/20/24 12:05 Intake Total 08209.40 Output Total 7700 Balance 6919.40 Current Meds Ordered / Administered: Current meds ordered / Administered Generic Name Dose Route Start Last Admin Trade Name Freq PRN Reason Stop Dose Admin Acetaminophen 650 mg 02/16/24 20:27 02/20/24 08:50 Acetaminophen 650 Mg/20 Ml Udc GT 650 mg Q6H PRN PRN Administration Pain 1-10 Or Fever >100.7 Albuterol/Ipratropium 3 ml 02/15/24 08:27 02/20/24 12:51 Ipratropium/Albuterol Sulfate 3 Ml Ampul.Neb INHALATION 3 ml Q6H.RT CALVIN Administration Aspirin 81 mg 02/17/24 10:00 02/20/24 08:56 Aspirin 81 Mg Tab.Chew GT 81 mg DAILY CALVIN Administration Calamine/Phenol 1 applic 02/16/24 22:00 02/20/24 08:51 Menthol/Lanolin/Calamine/Znox 113 Gm Tube TOPICAL 1 applic BID CALVIN Administration Protocol Chlorhexidine Gluconate 15 ml 02/16/24 22:00 02/20/24 08:51 Chlorhexidine 15 Ml PO 15 ml BID CALVIN Administration Chlorhexidine Gluconate 1 each 02/19/24 10:00 02/20/24 08:58 Chlorhexidine Gluc 2% Cloth 1 Each Towelette TOPICAL 1 each DAILY CALVIN Administration Enoxaparin Sodium 40 mg 02/15/24 10:00 02/20/24 08:55 Enoxaparin 40 Mg/0.4 Ml Syringe SC 40 mg DAILY CALVIN Administration Glucagon 1 mg 02/15/24 08:27 Glucagon 1 Mg/Ml Syringe IM X1 PRN HYPOGLYCEMIA Protocol Hydrocortisone Sodium Succinate 100 mg 02/19/24 23:10 02/20/24 05:11 Hydrocortisone Sod Succinate 100 Mg/2 Ml Vial IV 100 mg TID CALVIN Administration Dextrose 250 mls @ 0 mls/hr 02/15/24 08:27 Dextrose 10%-Water IV .Q0M PRN HYPOGLYCEMIA Protocol As Directed Vancomycin IV-PHARMACY TO DOSE 500 mls @ 250 mls/hr 02/16/24 17:53 1 each/ Sodium Chloride IV X1 PRN Rx to Dose Protocol Piperacillin Sod/Tazobactam 50 mls @ 12.5 mls/hr 02/16/24 22:00 02/20/24 09:06 Sod 3.375 gm/ Sodium Chloride IV Infused Q8 CALVIN Infusion Propofol 1,000 mg in 100 mls @ 4.398 mls/hr 02/16/24 18:39 02/20/24 11:05 Diprivan CONT INF Infused .Q12H CALVIN Titration Protocol 10 MCG/KG/MIN Pantoprazole Sodium 40 mg/ 110 mls @ 330 mls/hr 02/17/24 10:00 02/20/24 09:25 Sodium Chloride IV Infused Q24 CALVIN Infusion Fentanyl 100 mls @ 2.5 mls/hr 02/16/24 18:39 02/20/24 11:05 CONT INF Infused UD CALVIN Titration Protocol 25 MCG/HR Enteral Nutritional Formula 1,000 mls @ 55 mls/hr 02/17/24 13:25 02/20/24 10:00 Vital Af 1.2 Conrad Liquid GT Infused .[id number] CALVIN Infusion Vancomycin HCl 1,000 mg in 200 mls @ 200 mls/hr 02/18/24 10:00 02/20/24 11:00 Vancomycin IV Infused Q12H CALVIN Infusion Insulin Glargine 50 unit 02/20/24 10:00 02/20/24 09:03 Insulin Glargine-Yfgn 100 Unit/Ml Pen SC 50 unit DAILY CALVIN Administration Insulin Human Lispro 0 unit 02/17/24 06:00 02/20/24 05:11 Insulin Lispro 100 Unit/Ml Insuln.Pen SC 6 unit Q6 CALVIN Administration Protocol Nitroglycerin 0.4 mg 02/15/24 08:27 Nitroglycerin (Inpatient Use) 0.4 Mg Tab.Subl SL Q5M PRN CARDIAC/CHEST PAIN Ondansetron HCl 4 mg 02/15/24 08:27 Ondansetron 4 Mg/2 Ml Vial IV Q8H PRN PRN NAUSEA/VOMITING Senna 1 tablet 02/17/24 10:00 02/20/24 08:56 Senna Tablet GT 1 tablet DAILY CALVIN Administration Sodium Chloride 10 - 40 ml 02/15/24 08:51 02/20/24 11:26 0.9% Saline Lock 10 Ml Syringe IV 10 ml UD PRN Administration SALINE FLUSH Sodium Chloride 100 ml 02/18/24 22:11 0.9% Normal Saline 100 Ml Iv.Soln. IV PRN PRN Irritable Bowel Syndrome Vancomycin Protocol 1 lab 02/21/24 19:30 Vancomycin Trough/Random Due 02/21/24 23:30 DAILY [facility] Lab / Micro Data 02/20/24 03:10 02/20/24 03:10 Labs: Laboratory Results - last 24 hr 02/19/24 04:02: WBC 5.8, RBC 3.29 L, Hgb 10.1 L, Hct 30.3 L, MCV 92.1, MCH 30.7, MCHC 33.3, RDW Std Deviation 47.5 H, RDW Coeff of Rojas 14.0, Plt Count 148 L, MPV 10.9, Immature Gran % (Auto) HEALTH CARE ANALYST, Neut % (Auto) HEALTH CARE ANALYST, Lymph % (Auto) HEALTH CARE ANALYST, [place] % (Auto) HEALTH CARE ANALYST, Eos % (Auto) HEALTH CARE ANALYST, Baso % (Auto) HEALTH CARE ANALYST, Absolute Neuts (auto) 4.9, Absolute Lymphs (auto) 0.41 L, Total Counted 100, Neutrophils % (Manual) 84 H, Lymphocytes % (Manual) 7 L, Monocytes % (Manual) 9, Nucleated RBC % 0, Differential Comment SCANNED, Diff Path Review June02/19/24 17:24: POC Glucose 333 H 02/19/24 21:25: Vancomycin Trough 15.3 H 02/19/24 23:40: POC Glucose 384 H 02/20/24 03:10: WBC 7.9, RBC 3.46 L, Hgb 10.4 L, Hct 31.3 L, MCV 90.5, MCH 30.1, MCHC 33.2, RDW Std Deviation 46.2 H, RDW Coeff of Rojas 14.0, Plt Count 192, MPV 10.9, Immature Gran % (Auto) 4.800 H, Neut % (Auto) 82.9 H, Lymph % (Auto) 9.2 L, [place] % (Auto) 2.5, Eos % (Auto) 0.1, Baso % (Auto) 0.5, Absolute Neuts (auto) 6.5, Absolute Lymphs (auto) 0.72 L, Nucleated RBC % 0.3, Sodium 136, Potassium 3.0 L, Chloride 101, Carbon Dioxide 28.0, Anion Gap 7, BUN 23 H, Creatinine 0.95, Estim Creat Clear Calc 44.27, Est GFR (MDRD) Af Amer 73, Est GFR (MDRD) Non-Af 60, BUN/Creatinine Ratio 24.1 H, Glucose 434 H, Calcium 8.7, Phosphorus 2.2 L, Magnesium 2.1, Total Bilirubin 0.60, AST 54 H, ALT 58 H, Alkaline Phosphatase 301 H, B-Natriuretic Peptide 721.5 H, Total Protein 6.5, Albumin 1.9 L, Globulin 4.6 H, Albumin/Globulin Ratio 0.4 L 02/20/24 05:10: POC Glucose 387 H Micro: Microbiology 02/15/24 05:11 Blood Culture (Wb) - Anticubital Right Blood Culture - Final No growth in 5 days. 02/15/24 05:18 Blood Culture (Wb) - Right Hand Blood Culture - Final No growth in 5 days. 02/16/24 19:15 Sputum, Induced/Lukens Gram Stain - Final 02/16/24 19:15 Sputum, Induced/Lukens Respiratory Culture - Final Mixed normal respiratory jade. No Streptococcus pneumoniae, beta-hemolytic Streptococcus or Staphylococcus aureus isolated. ABG Data ABG results: ABG 02/20/24 07:19 Specimen Type ART Sample Site R Brach pH 7.51 H Bicarbonate Actual 27.9 H Total CO2 29 Base Excess 5 H O2 Saturation 92 L O2 % 30.0 ABG pCO2 35.5 ABG pO2 57 L Respiration Rate 14 O2 Delivery Device Adult Vent Vent Mode AC Tidal Volume 450.0 POC PEEP 5 Assessment and Plan . Assessment and plan: Patient seen and examined Chart and data reviewed Elderly woman admitted 02/15/24 w/ acute respiratory failure d/t influenza infection and likely secondary bacterial PNA. On 02/16/24 she required invasive MV support. IMaging reveals severe R>L airspace disease. SPCX reveals MSSA and pneumococcus. She is diabetic and has severe ASCVD w/ h/o CABG. She has received anti-virals and anti-bacterials. 02/20/24 Extubated today after successful SBT She is awake and alert - NAD - O2 via N/C Low grade fever CX and pCXR reviewed I/O net (+)(+) - loop diuretics as tolerated EXAM GEN NAD VS as above HEENT O2 N/C NECK supple COR RRR CHEST coarse ABD soft EXT modest edema SKIN w/d JEFF globally weak - NF ASSESSMENT 1. Acute respiratory failure requiring MV support - extubated 02/20/24 2. Suspected bacterial PNA 3. Influenza infection 4. DM / ASCVD TREATMENT PLAN -O2 as needed -anti-virals and anti-bacterials -TF / sq insulin -try IV hydrocortisone -sq LMWH -keep I/O (-) Critical Care Time: 50 min The entirety of this encounter was done via Telemedicine
[2024-02-20 13:57] LABS: Bedside Glucose 413 mg/dL (74-106)
[2024-02-20 18:23] LABS: Bedside Glucose 226 mg/dL (74-106)
[2024-02-20] MEDS: Ceftriaxone 1 GM/50 ML BAG IV (20:47)
[2024-02-20] MEDS: Hydrocortisone Sod Succinate 100 MG/2 ML Vial 50 MG IV (20:49)
[2024-02-20 21:18] LABS: Bedside Glucose 207 mg/dL (74-106)
[2024-02-21] VITALS (20 sets, daily range): BP systolic 97–132; BP diastolic 48–67; PULSE 63–90; RESP 12–26; TEMP 36.1–37.3; O2SAT 89–98; BMI 29.1
[2024-02-21] MEDS: Ipratropium/Albuterol Sulfate 3 ML AMPUL.NEB INHALATION ×4 (01:13→19:27)
[2024-02-21] MEDS: Hydrocortisone Sod Succinate 100 MG/2 ML Vial 50 MG IV ×3 (06:23→21:59)
[2024-02-21 06:42] LABS: Absolute Neutrophil Count 10.8 X10^3/uL (2.0-7.7); Basophil# 0.04 X10^3/uL; Basophil% 0.3 % (0-1); Eosinophil# 0.01 X10^3/uL; Eosinophils% 0.1 % (0-5); Hematocrit 32.6 % (37-47); Lymphocyte % 9.3 % (19-41); Mean Corp Hgb Conc 33.7 g/dL (32-36); Mean Corpuscular Hgb 30.3 pg (27.0-32.0); Mean Corpuscular Volume 89.8 fL (81-99); Mean Platelet Vol. 10.6 fl (6.2-12.0); Monocyte# 0.43 X10^3/uL; Monocyte% 3.3 % (0-10); NRBC Flagged by Analyzer 0 % (0-5); Neutrophil # 10.84 X10^3/uL (2.7-7.7); Neutrophil % 83.7 % (47-70); Platelet Count 254 K/mm3 (150-450); RBC Distribution Width CV 13.6 % (11.6-14.6); RBC Distribution Width SD 44.9 fl (35.1-43.9); Red Blood Count 3.63 M/mm3 (4.2-5.4)
[2024-02-21 07:11] LABS: ALB/GLOB Ratio 0.4 RATIO (0.9-2.4); AST(SGOT) 47 U/L (15-37); Alanine Aminotransfer ALT/SGPT 49 U/L (13-56); Albumin, Serum 1.9 g/dL (3.2-5.0); Alkaline Phosphatase 218 U/L (45-117); Anion Gap 5 (5-15); BUN 30 mg/dL (7-18); BUN/Creat Ratio 42.8 RATIO (10-20); Chloride 105 mmol/L (98-107); EST Glomerular Filtration Rate 85 mL/min (>60); Est Glom Filt Rate - Afr Amer 103 mL/min (>60); Estimated Creatinine Clearance 52.22 ml/min; Globulin 4.5 g/dL (2.2-4.2); Glucose 209 mg/dL (74-106); Protein, Total 6.4 g/dL (6.4-8.2); Sodium Level 140 mmol/L (136-145)
[2024-02-21] MEDS: Menthol/Lanolin/Calamine/Znox 113 GM Tube 1 APPLIC TOPICAL ×2 (07:32→21:19)
[2024-02-21] MEDS: Insulin Lispro 100 UNIT/ML INSULN.PEN SC ×3 (07:32→21:19)
[2024-02-21] MEDS: Aspirin 81 MG TAB.CHEW GT (07:35)
[2024-02-21] MEDS: Enoxaparin 40 MG/0.4 ML Syringe SC (07:35)
[2024-02-21] MEDS: Insulin Glargine-YFGN 100 UNIT/ML Pen 50 UNIT SC (07:35)
[2024-02-21] MEDS: Senna Tablet 1 TABLET GT (07:36)
--- NOTE | 2024-02-21 08:31 | PCM.PN.INT ---
Assessment & Plan Assessment/Plan (1) Influenza A: (2) Pneumonia: (3) Acute respiratory failure with hypoxia: PLAN: Plan RECOMMENDATIONS: 1. Supplemental oxygen to maintain saturations at or above 90%. 2. Continue antimicrobials. 3. Okay to discontinue steroids from my perspective. 4. Encourage incentive spirometer use and mobilize patient as tolerated. 5. Continue appropriate DVT prophylaxis. 6. The patient is medically stable for transfer out of the intensive care unit. IMPRESSIONS: 1. Acute hypoxemic respiratory failure Appears secondary to influenza A infection with secondary bacterial pneumonia. Sputum culture was positive for Streptococcus pneumonia and MSSA. With supportive care, the patient was able to be extubated on February 19. She is doing well from a respiratory perspective. Plan to continue antimicrobials to complete treatment course. Otherwise, encourage incentive spirometer use and mobilize patient as tolerated. Supplemental oxygen should be weaned to maintain saturations at or above 90%. 2. Sepsis The patient presented to the ICU with sepsis due to influenza A and secondary bacterial pneumonia with acute sepsis related organ dysfunction as evidenced by lactic acidemia and acute respiratory failure requiring invasive mechanical ventilatory support. The patient remains hemodynamically stable. She has completed a treatment course of Tamiflu and remains on antimicrobials. 3. History of coronary artery disease status post CABG/diabetes mellitus Complicates care, management, recovery and prognosis. Continue sliding scale insulin coverage for now. Physical therapy to work with the patient. This note was generated with [employer] dictation software. It may contain incorrect words, spelling, and punctuation that were not noted in checking the note before signing. Subjective Subjective The patient was seen and examined at the bedside this morning. Events from the last 24 hours have been reviewed. The patient remains afebrile hemodynamically stable. She is doing well from a respiratory perspective following extubation. White count is elevated at 13,000 with a hemoglobin of 11.0 g/dL and normal platelet count. Potassium is low at 3.0 with a normal creatinine. Objective Data Objective Data The patient's most recent lab work, culture data and imaging studies have all been personally reviewed. Influenza PCR was positive on February 14. Sputum culture is currently demonstrating growth of alpha hemolytic Streptococcus along with Staph aureus. Vital Signs: Vital Signs Temp Pulse Resp BP Pulse Ox O2 Del Method O2 Flow Rate 98.6 F 74 20 H 115/52 L 91 Nasal Cannula 5 02/21/24 07:00 02/21/24 07:22 02/21/24 07:22 02/21/24 07:00 02/21/24 07:22 02/21/24 07:22 02/21/24 07:22 FiO2 35 02/21/24 07:00 Oxygen Flow Rate (L/min) 5 Oxygen Delivery Method Nasal Cannula Weight: 159 lb 6.4 oz Body Mass Index (BMI) 29.1 Intake & Output: Intake and Output for Last 24 Hours 02/19/24 02/20/24 02/21/24 23:59 23:59 23:59 Intake Total 2565.90 / 2650.60 2232.01 / 2382.01 250 / 250 Output Total 2049 / 2049 1775 / 1975 450 / 450 Balance 515.90 / 600.60 457.01 / 407.01 -200 / -200 Lab / Micro Data Attestation: I reviewed the patient's lab results. 02/21/24 06:30 02/21/24 06:30 Labs: Laboratory Results - last 24 hr 02/20/24 13:25: POC Glucose 413 H 02/20/24 18:03: POC Glucose 226 H 02/20/24 20:46: POC Glucose 207 H 02/21/24 06:30: WBC 13.0 H, RBC 3.63 L, Hgb 11.0 L, Hct 32.6 L, MCV 89.8, MCH 30.3, MCHC 33.7, RDW Std Deviation 44.9 H, RDW Coeff of Rojas 13.6, Plt Count 254, MPV 10.6, Immature Gran % (Auto) 3.300 H, Neut % (Auto) 83.7 H, Lymph % (Auto) 9.3 L, [place] % (Auto) 3.3, Eos % (Auto) 0.1, Baso % (Auto) 0.3, Absolute Neuts (auto) 10.8 H, Absolute Lymphs (auto) 1.20, Nucleated RBC % 0, Sodium 140, Potassium 3.0 L, Chloride 105, Carbon Dioxide 30.0, Anion Gap 5, BUN 30 H, Creatinine 0.70, Estim Creat Clear Calc 52.22, Est GFR (MDRD) Af Amer 103, Est GFR (MDRD) Non-Af 85, BUN/Creatinine Ratio 42.8 H, Glucose 209 H, Calcium 9.0, Total Bilirubin 0.50, AST 47 H, ALT 49, Alkaline Phosphatase 218 H, Total Protein 6.4, Albumin 1.9 L, Globulin 4.5 H, Albumin/Globulin Ratio 0.4 L Micro: Microbiology 02/15/24 05:11 Blood Culture (Wb) - Anticubital Right Blood Culture - Final No growth in 5 days. 02/15/24 05:18 Blood Culture (Wb) - Right Hand Blood Culture - Final No growth in 5 days. 02/16/24 19:15 Sputum, Induced/Lukens Gram Stain - Final 02/16/24 19:15 Sputum, Induced/Lukens Respiratory Culture - Final Mixed normal respiratory jade. No Streptococcus pneumoniae, beta-hemolytic Streptococcus or Staphylococcus aureus isolated. 02/15/24 08:50 Sputum, Expectorated/Coughed Gram Stain - Final 02/15/24 08:50 Sputum, Expectorated/Coughed Respiratory Culture - Final Streptococcus pneumoniae Staphylococcus aureus 02/15/24 11:50 Urine, Clean Catch Urine Culture - Final Culture exhibits no growth. 02/15/24 11:50 Urine, Random Legionella Antigen - Final 02/15/24 11:50 Urine, Random Streptococcus pneumoniae Antigen (M - Final 02/15/24 05:04 Mucosa - Nose SARS-CoV-2, Influenza & RSV (PCR) - Final Influenzae A ABG Data ABG results: ABG 02/17/24 10:26 Specimen Type ART Sample Site L Brach pH 7.45 Bicarbonate Actual 22.7 Total CO2 24 Base Excess -1 O2 Saturation 93 L O2 % 40.0 ABG pCO2 32.9 L ABG pO2 62 L Judah Test Positive Respiration Rate 14 O2 Delivery Device Adult Vent Vent Mode AC Tidal Volume 450.0 POC PEEP 5 Radiography Diagnostic Testing: Radiology Impression Chest X-Ray 02/20/24 05:45 IMPRESSION: Improved aeration of the left upper lobe with persistent bilateral patchy opacities within the right mid and bilateral lower lungs may reflect some combination of pneumonia, atelectasis and/or edema. Electronically Signed: Sintia Callahan MD at 13:02 EST , Physical Exam Const alert and no apparent distress General Appearance: cooperative HEENT normocephalic, head/scalp atraumatic and moist oral mucous membranes Eyes PERRL, EOMs intact bilaterally and conjunctivae normal Neck supple General: trachea midline Chest inspection of chest normal Resp Auscultation: diminished lung sounds; Negative for rales, rhonchi or wheezes Cardio regular rate and regular rhythm GI normal to inspection, nondistended, normoactive bowel sounds Extremity no clubbing, cyanosis or edema Skin no rashes or lesions noted Neuro CN's II-XII intact bilaterally, moves all extremities and no focal motor deficits Psych cooperative and affect normal Charges/Coding Visit Charges Inpatient E&M: 01153 Subs Hosp L3
--- NOTE | 2024-02-21 10:48 | CASEMGMT ---
Social Work- SW participated in interdisciplinary rounds on pt. SW remains available to follow for therapy recommendations at discharge. NGOZI Sky
[2024-02-21] MEDS: Potassium Chloride IVPB 40 MEQ 100 MEQ IV BOLUS ×4 (11:29→15:51)
[2024-02-21 12:00] LABS: Bedside Glucose 172 mg/dL (74-106)
[2024-02-21 13:33] LABS: Pathologist Review Reviewed
[2024-02-21 16:12] LABS: Bedside Glucose 123 mg/dL (74-106)
--- NOTE | 2024-02-21 17:59 | PCM.PN.HOSP ---
Reason for Visit Reason for Visit: Diagnoses Dehydration (02/15/24) Influenza due to other identified influenza virus with other respiratory manifestations (02/15/24) Pneumonia, unspecified organism (02/15/24) Acute respiratory failure with hypoxia (02/15/24) Subjective Subjective Patient was seen and examined today, patient was extubated yesterday, she is on 8 L of oxygen currently. Objective Data Objective Data Vital Signs: Vital Signs Temp Pulse Resp BP Pulse Ox O2 Del Method O2 Flow Rate 98.9 F 84 25 H 132/67 H 96 Nasal Cannula 8 02/21/24 16:00 02/21/24 16:00 02/21/24 16:00 02/21/24 16:00 02/21/24 16:00 02/21/24 16:00 02/21/24 16:00 FiO2 94 02/21/24 09:00 Oxygen Flow Rate (L/min) 8 Oxygen Delivery Method Nasal Cannula Weight: 72.303 kg Body Mass Index (BMI) 29.1 Intake & Output: Intake and Output for Last 24 Hours 02/19/24 02/20/24 02/21/24 23:59 23:59 23:59 Intake Total 2565.90 / 2650.60 2232.01 / 2382.01 650 / 650 Output Total 2049 / 2049 1775 / 1975 450 / 450 Balance 515.90 / 600.60 457.01 / 407.01 200 / 200 Lab / Micro Data 02/21/24 06:30 02/21/24 06:30 Labs: Laboratory Results - last 24 hr 02/19/24 04:02: Diff Path Review Reviewed 02/20/24 18:03: POC Glucose 226 H 02/20/24 20:46: POC Glucose 207 H 02/21/24 06:30: WBC 13.0 H, RBC 3.63 L, Hgb 11.0 L, Hct 32.6 L, MCV 89.8, MCH 30.3, MCHC 33.7, RDW Std Deviation 44.9 H, RDW Coeff of Rojas 13.6, Plt Count 254, MPV 10.6, Immature Gran % (Auto) 3.300 H, Neut % (Auto) 83.7 H, Lymph % (Auto) 9.3 L, [place] % (Auto) 3.3, Eos % (Auto) 0.1, Baso % (Auto) 0.3, Absolute Neuts (auto) 10.8 H, Absolute Lymphs (auto) 1.20, Nucleated RBC % 0, Sodium 140, Potassium 3.0 L, Chloride 105, Carbon Dioxide 30.0, Anion Gap 5, BUN 30 H, Creatinine 0.70, Estim Creat Clear Calc 52.22, Est GFR (MDRD) Af Amer 103, Est GFR (MDRD) Non-Af 85, BUN/Creatinine Ratio 42.8 H, Glucose 209 H, Calcium 9.0, Total Bilirubin 0.50, AST 47 H, ALT 49, Alkaline Phosphatase 218 H, Total Protein 6.4, Albumin 1.9 L, Globulin 4.5 H, Albumin/Globulin Ratio 0.4 L 02/21/24 11:35: POC Glucose 172 H 02/21/24 15:53: POC Glucose 123 H Micro: Microbiology 02/15/24 05:11 Blood Culture (Wb) - Anticubital Right Blood Culture - Final No growth in 5 days. 02/15/24 05:18 Blood Culture (Wb) - Right Hand Blood Culture - Final No growth in 5 days. 02/16/24 19:15 Sputum, Induced/Lukens Gram Stain - Final 02/16/24 19:15 Sputum, Induced/Lukens Respiratory Culture - Final Mixed normal respiratory jade. No Streptococcus pneumoniae, beta-hemolytic Streptococcus or Staphylococcus aureus isolated. 02/15/24 08:50 Sputum, Expectorated/Coughed Gram Stain - Final 02/15/24 08:50 Sputum, Expectorated/Coughed Respiratory Culture - Final Streptococcus pneumoniae Staphylococcus aureus 02/15/24 11:50 Urine, Clean Catch Urine Culture - Final Culture exhibits no growth. 02/15/24 11:50 Urine, Random Legionella Antigen - Final 02/15/24 11:50 Urine, Random Streptococcus pneumoniae Antigen (M - Final 02/15/24 05:04 Mucosa - Nose SARS-CoV-2, Influenza & RSV (PCR) - Final Influenzae A Physical Exam Const alert and no apparent distress General Appearance: cooperative, well kempt and well developed Orientation / Consciousness: awake, oriented to person and oriented to place HEENT normocephalic, head/scalp atraumatic and moist oral mucous membranes Eyes PERRL, EOMs intact bilaterally and conjunctivae normal Neck supple, no JVD, thyroid normal and no carotid bruits General: trachea midline Resp normal respiratory effort, no retractions, no use of accessory muscles and clear to auscultation bilaterally Auscultation: Negative for rales, rhonchi or wheezes Cardio regular rate, regular rhythm, S1 normal heart sound, S2 normal heart sound, no murmurs, no rub and no gallops GI normal to inspection, nondistended, normoactive bowel sounds, soft to palpation, non-tender and non-distended Extremity no clubbing, cyanosis or edema Skin no rashes or lesions noted General Skin Exam: no breakdown Neuro CN's II-XII intact bilaterally, moves all extremities, no focal motor deficits and no sensory deficits noted Sensorium / Orientation: awake, alert, oriented to person and oriented to place Speech: speech normal Psych affect normal Assessment & Plan Assessment/Plan (1) Acute respiratory failure with hypoxia: PLAN: Plan 1. Acute hypoxic respiratory failure secondary to influenza A with secondary bacterial infection-patient will remain on her present antibiotics, sputum culture is growing out Staph aureus and alphahemolytic strep. Patient is on high flow nasal cannula oxygen at this time. #2 sepsis secondary to bacterial pneumonia and influenza A-continue present antibiotic coverage #3 type 2 diabetes-patient's blood sugars will be monitored, sliding scale insulin will be administered as needed #4 coronary artery disease-this appears stable at this time #5 elevated troponin secondary to demand ischemia-complicates care, management, recovery, and prognosis #6 hypokalemia-patient was given IV potassium supplementation today Total clinical time spent by myself addressing the patient's medical issues, reviewing all of her data, and collaborating with patient's care team: 35 minutes Charges/Coding Visit Charges Inpatient E&M: 18244 Subs Hosp L2
[2024-02-21] MEDS: Ceftriaxone 1 GM/50 ML BAG IV (21:27)
[2024-02-21] MEDS: 0.9% Saline Lock 10 ML Syringe IV ×2 (21:28→22:00)
[2024-02-21 21:39] LABS: Bedside Glucose 186 mg/dL (74-106)
[2024-02-22] VITALS (8 sets, daily range): BP systolic 110–128; BP diastolic 51–77; PULSE 69–98; RESP 16–20; TEMP 36.7–37.3; O2SAT 83–97; BMI 29.1
[2024-02-22] MEDS: Hydrocortisone Sod Succinate 100 MG/2 ML Vial 50 MG IV (04:35)
[2024-02-22] MEDS: 0.9% Saline Lock 10 ML Syringe IV (04:36)
[2024-02-22] MEDS: Ipratropium/Albuterol Sulfate 3 ML AMPUL.NEB INHALATION ×3 (07:17→19:33)
[2024-02-22 07:33] LABS: Anion Gap 4 (5-15); BUN 35 mg/dL (7-18); BUN/Creat Ratio 48.4 RATIO (10-20); Calcium,Total 9.2 mg/dL (8.5-10.1); Chloride 105 mmol/L (98-107); Creatinine, Serum 0.72 mg/dL (0.55-1.02); EST Glomerular Filtration Rate 82 mL/min (>60); Est Glom Filt Rate - Afr Amer 100 mL/min (>60); Estimated Creatinine Clearance 52.22 ml/min; Glucose 126 mg/dL (74-106); Potassium 3.7 mmol/L (3.5-5.1); Sodium Level 140 mmol/L (136-145)
[2024-02-22] MEDS: Enoxaparin 40 MG/0.4 ML Syringe SC (07:49)
[2024-02-22] MEDS: Senna Tablet 1 TABLET GT (07:50)
[2024-02-22] MEDS: Insulin Glargine-YFGN 100 UNIT/ML Pen 50 UNIT SC (07:50)
[2024-02-22] MEDS: Aspirin 81 MG TAB.CHEW GT (07:50)
[2024-02-22] MEDS: Menthol/Lanolin/Calamine/Znox 113 GM Tube 1 APPLIC TOPICAL ×2 (07:51→21:59)
--- NOTE | 2024-02-22 08:13 | PCM.PN.INT ---
Assessment & Plan Assessment/Plan (1) Influenza A: (2) Pneumonia: (3) Acute respiratory failure with hypoxia: PLAN: Plan RECOMMENDATIONS: 1. Supplemental oxygen to maintain saturations at or above 90%. 2. Continue antimicrobials. 3. Start scheduled Lasix today as ordered. 4. Encourage incentive spirometer use and mobilize patient as tolerated. 5. Continue appropriate DVT prophylaxis. IMPRESSIONS: 1. Acute hypoxemic respiratory failure Appears secondary to influenza A infection with secondary bacterial pneumonia. Sputum culture was positive for Streptococcus pneumonia and MSSA. With supportive care, the patient was able to be extubated on February 19. Plan to continue antimicrobials to complete treatment course. Otherwise, encourage incentive spirometer use and mobilize patient as tolerated. Supplemental oxygen should be weaned to maintain saturations at or above 90%. Will plan to initiate scheduled IV diuretic therapy today and continue as tolerated by hemodynamics and renal function. 2. Sepsis The patient presented to the ICU with sepsis due to influenza A and secondary bacterial pneumonia with acute sepsis related organ dysfunction as evidenced by lactic acidemia and acute respiratory failure requiring invasive mechanical ventilatory support. The patient remains hemodynamically stable. She has completed a treatment course of Tamiflu and remains on antimicrobials. 3. History of coronary artery disease status post CABG/diabetes mellitus Complicates care, management, recovery and prognosis. Continue sliding scale insulin coverage for now. Physical therapy to work with the patient. This note was generated with [employer] dictation software. It may contain incorrect words, spelling, and punctuation that were not noted in checking the note before signing. Subjective Subjective The patient was seen and examined at the bedside this morning. Events from the last 24 hours have been reviewed. The patient is currently afebrile, hemodynamically stable and maintaining appropriate oxygen saturations on 10 L/min via nasal cannula. The patient is currently documented to be overall net +6 L for the hospitalization. Chemistry profile was unremarkable. Objective Data Objective Data The patient's most recent lab work, culture data and imaging studies have all been personally reviewed. Influenza PCR was positive on February 14. Sputum culture is currently demonstrating growth of alpha hemolytic Streptococcus along with Staph aureus. Vital Signs: Vital Signs Temp Pulse Resp BP Pulse Ox O2 Del Method O2 Flow Rate 98.2 F 72 18 110/58 L 91 Nasal Cannula 10 02/22/24 04:00 02/22/24 07:19 02/22/24 07:19 02/22/24 04:00 02/22/24 07:19 02/22/24 07:19 02/22/24 07:19 FiO2 94 02/21/24 09:00 Oxygen Flow Rate (L/min) 10 Oxygen Delivery Method Nasal Cannula Weight: 159 lb 6.4 oz Body Mass Index (BMI) 29.1 Intake & Output: Intake and Output for Last 24 Hours 02/20/24 02/21/24 02/22/24 23:59 23:59 23:59 Intake Total 2232. / 2382.01 700 / 700 Output Total 1774 / 1974 875 / 875 275 / 275 Balance 457.01 / 407.01 -175 / -175 -275 / -275 Lab / Micro Data Attestation: I reviewed the patient's lab results. 02/21/24 06:30 02/22/24 06:47 Labs: Laboratory Results - last 24 hr 02/19/24 04:02: Diff Path Review Reviewed 02/21/24 11:35: POC Glucose 172 H 02/21/24 15:53: POC Glucose 123 H 02/21/24 21:19: POC Glucose 186 H 02/22/24 06:47: Sodium 140, Potassium 3.7, Chloride 105, Carbon Dioxide 31.0, Anion Gap 4 L, BUN 35 H, Creatinine 0.72, Estim Creat Clear Calc 52.22, Est GFR (MDRD) Af Amer 100, Est GFR (MDRD) Non-Af 82, BUN/Creatinine Ratio 48.4 H, Glucose 126 H, Calcium 9.2 Micro: Microbiology 02/15/24 05:11 Blood Culture (Wb) - Anticubital Right Blood Culture - Final No growth in 5 days. 02/15/24 05:18 Blood Culture (Wb) - Right Hand Blood Culture - Final No growth in 5 days. 02/16/24 19:15 Sputum, Induced/Lukens Gram Stain - Final 02/16/24 19:15 Sputum, Induced/Lukens Respiratory Culture - Final Mixed normal respiratory jade. No Streptococcus pneumoniae, beta-hemolytic Streptococcus or Staphylococcus aureus isolated. 02/15/24 08:50 Sputum, Expectorated/Coughed Gram Stain - Final 02/15/24 08:50 Sputum, Expectorated/Coughed Respiratory Culture - Final Streptococcus pneumoniae Staphylococcus aureus 02/15/24 11:50 Urine, Clean Catch Urine Culture - Final Culture exhibits no growth. 02/15/24 11:50 Urine, Random Legionella Antigen - Final 02/15/24 11:50 Urine, Random Streptococcus pneumoniae Antigen (M - Final 02/15/24 05:04 Mucosa - Nose SARS-CoV-2, Influenza & RSV (PCR) - Final Influenzae A ABG Data ABG results: ABG 02/17/24 10:26 Specimen Type ART Sample Site L Brach pH 7.45 Bicarbonate Actual 22.7 Total CO2 24 Base Excess -1 O2 Saturation 93 L O2 % 40.0 ABG pCO2 32.9 L ABG pO2 62 L Judah Test Positive Respiration Rate 14 O2 Delivery Device Adult Vent Vent Mode AC Tidal Volume 450.0 POC PEEP 5 Radiography Diagnostic Testing: Radiology Impression Chest X-Ray 02/20/24 05:45 IMPRESSION: Improved aeration of the left upper lobe with persistent bilateral patchy opacities within the right mid and bilateral lower lungs may reflect some combination of pneumonia, atelectasis and/or edema. Electronically Signed: Sintia Callahan MD at 13:02 EST , Physical Exam Const alert and no apparent distress General Appearance: cooperative HEENT normocephalic, head/scalp atraumatic and moist oral mucous membranes Eyes PERRL, EOMs intact bilaterally and conjunctivae normal Neck supple General: trachea midline Chest inspection of chest normal Resp Auscultation: diminished lung sounds; Negative for rales, rhonchi or wheezes Cardio regular rate and regular rhythm GI normal to inspection, nondistended, normoactive bowel sounds Extremity no clubbing, cyanosis or edema Skin no rashes or lesions noted Neuro CN's II-XII intact bilaterally, moves all extremities and no focal motor deficits Psych Mood & Affect: flat affect Charges/Coding Visit Charges Inpatient E&M: 58097 Subs Hosp L2
[2024-02-22] MEDS: Insulin Lispro 100 UNIT/ML INSULN.PEN SC ×2 (10:54→15:34)
[2024-02-22] MEDS: Furosemide 40 MG/4 ML Vial IV ×2 (10:54→15:35)
[2024-02-22 11:15] LABS: Bedside Glucose 318 mg/dL (74-106)
--- NOTE | 2024-02-22 12:34 | CASEMGMT ---
Social Work SW spoke w/pt in room, son Favian also present. SW inquired w/pt about d/c plan, pt continues to state she will go home. She states her daughter will be coming in from [place] to help pt when she goes home. Son Favian confirms there will be other family available to help pt. SW remains available should the plan change. KEILA Cifuentes
[2024-02-22 15:55] LABS: Bedside Glucose 211 mg/dL (74-106)
--- NOTE | 2024-02-22 17:19 | PCM.PN.HOSP ---
Reason for Visit Reason for Visit: Diagnoses Dehydration (02/15/24) Influenza due to other identified influenza virus with other respiratory manifestations (02/15/24) Pneumonia, unspecified organism (02/15/24) Acute respiratory failure with hypoxia (02/15/24) Subjective Subjective Patient was seen and examined today, she is on high flow oxygen and critical care has elected to diurese the patient. Objective Data Objective Data Vital Signs: Vital Signs Temp Pulse Resp BP Pulse Ox O2 Del Method O2 Flow Rate 98.0 F 73 18 128/64 H 94 High Flow 10 02/22/24 10:00 02/22/24 12:12 02/22/24 12:12 02/22/24 10:00 02/22/24 13:45 02/22/24 13:35 02/22/24 13:45 FiO2 94 02/21/24 09:00 Oxygen Flow Rate (L/min) 10 Oxygen Delivery Method High Flow Weight: 72.303 kg Body Mass Index (BMI) 29.1 Intake & Output: Intake and Output for Last 24 Hours 02/20/24 02/21/24 02/22/24 23:59 23:59 23:59 Intake Total 2232.01 / 2382.01 700 / 700 Output Total 1775 / 1975 875 / 875 1175 / 1175 Balance 457.01 / 407.01 -175 / -175 -1175 / -1175 Lab / Micro Data 02/21/24 06:30 02/22/24 06:47 Labs: Laboratory Results - last 24 hr 02/21/24 21:19: POC Glucose 186 H 02/22/24 06:47: Sodium 140, Potassium 3.7, Chloride 105, Carbon Dioxide 31.0, Anion Gap 4 L, BUN 35 H, Creatinine 0.72, Estim Creat Clear Calc 52.22, Est GFR (MDRD) Af Amer 100, Est GFR (MDRD) Non-Af 82, BUN/Creatinine Ratio 48.4 H, Glucose 126 H, Calcium 9.2 02/22/24 10:53: POC Glucose 318 H 02/22/24 15:33: POC Glucose 211 H Micro: Microbiology 02/15/24 05:11 Blood Culture (Wb) - Anticubital Right Blood Culture - Final No growth in 5 days. 02/15/24 05:18 Blood Culture (Wb) - Right Hand Blood Culture - Final No growth in 5 days. 02/16/24 19:15 Sputum, Induced/Lukens Gram Stain - Final 02/16/24 19:15 Sputum, Induced/Lukens Respiratory Culture - Final Mixed normal respiratory jade. No Streptococcus pneumoniae, beta-hemolytic Streptococcus or Staphylococcus aureus isolated. 02/15/24 08:50 Sputum, Expectorated/Coughed Gram Stain - Final 02/15/24 08:50 Sputum, Expectorated/Coughed Respiratory Culture - Final Streptococcus pneumoniae Staphylococcus aureus 02/15/24 11:50 Urine, Clean Catch Urine Culture - Final Culture exhibits no growth. 02/15/24 11:50 Urine, Random Legionella Antigen - Final 02/15/24 11:50 Urine, Random Streptococcus pneumoniae Antigen (M - Final 02/15/24 05:04 Mucosa - Nose SARS-CoV-2, Influenza & RSV (PCR) - Final Influenzae A Physical Exam Narrative alert and no apparent distress General Appearance: cooperative, well kempt and well developed Orientation / Consciousness: awake, oriented to person and oriented to place HEENT normocephalic, head/scalp atraumatic and moist oral mucous membranes Eyes PERRL, EOMs intact bilaterally and conjunctivae normal Neck supple, no JVD, thyroid normal and no carotid bruits General: trachea midline Resp normal respiratory effort, no retractions, no use of accessory muscles and clear to auscultation bilaterally Auscultation: Negative for rales, rhonchi or wheezes Cardio regular rate, regular rhythm, S1 normal heart sound, S2 normal heart sound, no murmurs, no rub and no gallops GI normal to inspection, nondistended, normoactive bowel sounds, soft to palpation, non-tender and non-distended Extremity no clubbing, cyanosis or edema Skin no rashes or lesions noted General Skin Exam: no breakdown Neuro CN's II-XII intact bilaterally, moves all extremities, no focal motor deficits and no sensory deficits noted Sensorium / Orientation: awake, alert, oriented to person and oriented to place Speech: speech normal Psych affect normal Assessment & Plan Assessment/Plan (1) Pneumonia: (2) Acute respiratory failure with hypoxia: PLAN: Plan 1. Acute hypoxic respiratory failure secondary to influenza A with secondary bacterial infection-patient will remain on her present antibiotics, sputum culture is growing out Staph aureus and alphahemolytic strep. Patient is on high flow nasal cannula oxygen at this time. #2 sepsis secondary to bacterial pneumonia and influenza A-continue present antibiotic coverage #3 type 2 diabetes-patient's blood sugars will be monitored, sliding scale insulin will be administered as needed #4 coronary artery disease-this appears stable at this time #5 elevated troponin secondary to demand ischemia-complicates care, management, recovery, and prognosis #6 hypokalemia-resolved at this time Total clinical time spent by myself addressing the patient's medical issues, reviewing all of her data, and collaborating with patient's care team: 35 minutes Charges/Coding Visit Charges Inpatient E&M: 82606 Subs Hosp L2
[2024-02-22] MEDS: Ceftriaxone 1 GM/50 ML BAG IV (21:59)
[2024-02-22 22:19] LABS: Bedside Glucose 71 mg/dL (74-106)
[2024-02-22 23:12] LABS: Bedside Glucose 69 mg/dL (74-106)
[2024-02-22 23:28] LABS: Bedside Glucose 78 mg/dL (74-106)
[2024-02-23] VITALS (8 sets, daily range): BP systolic 105–139; BP diastolic 50–68; PULSE 55–97; RESP 16–19; TEMP 36.6–37.2; O2SAT 95–99; BMI 29.2
[2024-02-23 05:37] LABS: Bedside Glucose 84 mg/dL (74-106)
[2024-02-23] MEDS: Ipratropium/Albuterol Sulfate 3 ML AMPUL.NEB INHALATION ×3 (07:24→19:10)
[2024-02-23] MEDS: Aspirin 81 MG TAB.CHEW GT (10:36)
[2024-02-23] MEDS: Menthol/Lanolin/Calamine/Znox 113 GM Tube 1 APPLIC TOPICAL ×2 (10:36→21:12)
[2024-02-23] MEDS: Insulin Glargine-YFGN 100 UNIT/ML Pen 50 UNIT SC (10:37)
[2024-02-23] MEDS: Enoxaparin 40 MG/0.4 ML Syringe SC (10:37)
[2024-02-23] MEDS: Senna Tablet 1 TABLET GT (10:38)
--- NOTE | 2024-02-23 10:51 | PN.CC_ITS ---
Assessment & Plan Assessment/Plan (1) Influenza A: (2) Pneumonia: (3) Acute respiratory failure with hypoxia: PLAN: Plan RECOMMENDATIONS: 1. Supplemental oxygen to maintain saturations at or above 90%. 2. Continue antimicrobials to complete 7 days of therapy. 3. Consider additional diuresis if morning labs indicate normal renal function. 4. Encourage incentive spirometer use and mobilize patient as tolerated. 5. Continue appropriate DVT prophylaxis. IMPRESSIONS: 1. Acute hypoxemic respiratory failure Appears secondary to influenza A infection with secondary bacterial pneumonia. Sputum culture was positive for Streptococcus pneumonia and MSSA. With supportive care, the patient was able to be extubated on February 19. Plan to continue antimicrobials to complete treatment course. Otherwise, encourage incentive spirometer use and mobilize patient as tolerated. Supplemental oxygen should be weaned to maintain saturations at or above 90%. Consider additional attempts at diuresis as tolerated by hemodynamics and renal function. 2. Sepsis The patient presented to the ICU with sepsis due to influenza A and secondary bacterial pneumonia with acute sepsis related organ dysfunction as evidenced by lactic acidemia and acute respiratory failure requiring invasive mechanical ventilatory support. The patient remains hemodynamically stable. She has completed a treatment course of Tamiflu and remains on antimicrobials. 3. History of coronary artery disease status post CABG/diabetes mellitus Complicates care, management, recovery and prognosis. Continue sliding scale insulin coverage for now. Physical therapy to work with the patient. This note was generated with [facility] dictation software. It may contain incorrect words, spelling, and punctuation that were not noted in checking the note before signing. Subjective Subjective The patient was seen and examined at the bedside this morning. Events from the last 24 hours have been reviewed. The patient is currently afebrile, hemodynamically stable and maintaining appropriate oxygen saturations on 7 L/min via nasal cannula. The patient is documented to be overall net +4.8 L for the hospitalization. No new morning labs were completed this morning. Objective Data Objective Data The patient's most recent lab work, culture data and imaging studies have all been personally reviewed. Influenza PCR was positive on February 14. Sputum culture is currently demonstrating growth of alpha hemolytic Streptococcus along with Staph aureus. Vital Signs: Vital Signs Temp Pulse Resp BP Pulse Ox O2 Del Method O2 Flow Rate 98.1 F 78 16 105/50 L 99 High Flow 7 02/23/24 10:00 02/23/24 10:02/23/24 10:00 02/23/24 10:00 02/23/24 10:00 02/23/24 10:00 02/23/24 10:00 FiO2 94 02/21/24 09:00 Oxygen Flow Rate (L/min) 7 Oxygen Delivery Method High Flow Weight: 160 lb 1.6 oz Body Mass Index (BMI) 29.2 Intake & Output: Intake and Output for Last 24 Hours 02/21/24 02/22/24 02/23/24 23:59 23:59 23:59 Intake Total 700 / 700 50 / 400 500 / 500 Output Total 875 / 875 1425 / 2025 600 / 600 Balance -175 / -175 -1375 / -1625 -100 / -100 Lab / Micro Data Attestation: I reviewed the patient's lab results. 02/21/24 06:30 02/22/24 06:47 Labs: Laboratory Results - last 24 hr 02/22/24 10:53: POC Glucose 318 H 02/22/24 15:33: POC Glucose 211 H 02/22/24 21:55: POC Glucose 71 L 02/22/24 22:52: POC Glucose 69 L 02/22/24 23:09: POC Glucose 78 02/23/24 05:18: POC Glucose 84 Micro: Microbiology 02/15/24 05:11 Blood Culture (Wb) - Anticubital Right Blood Culture - Final No growth in 5 days. 02/15/24 05:18 Blood Culture (Wb) - Right Hand Blood Culture - Final No growth in 5 days. 02/16/24 19:15 Sputum, Induced/Lukens Gram Stain - Final 02/16/24 19:15 Sputum, Induced/Lukens Respiratory Culture - Final Mixed normal respiratory jade. No Streptococcus pneumoniae, beta-hemolytic Streptococcus or Staphylococcus aureus isolated. 02/15/24 08:50 Sputum, Expectorated/Coughed Gram Stain - Final 02/15/24 08:50 Sputum, Expectorated/Coughed Respiratory Culture - Final Streptococcus pneumoniae Staphylococcus aureus 02/15/24 11:50 Urine, Clean Catch Urine Culture - Final Culture exhibits no growth. 02/15/24 11:50 Urine, Random Legionella Antigen - Final 02/15/24 11:50 Urine, Random Streptococcus pneumoniae Antigen (M - Final 02/15/24 05:04 Mucosa - Nose SARS-CoV-2, Influenza & RSV (PCR) - Final Influenzae A ABG Data ABG results: ABG 02/17/24 10:26 Specimen Type ART Sample Site L Brach pH 7.45 Bicarbonate Actual 22.7 Total CO2 24 Base Excess -1 O2 Saturation 93 L O2 % 40.0 ABG pCO2 32.9 L ABG pO2 62 L Judah Test Positive Respiration Rate 14 O2 Delivery Device Adult Vent Vent Mode AC Tidal Volume 450.0 POC PEEP 5 Radiography Diagnostic Testing: Radiology Impression Chest X-Ray 02/20/24 05:45 IMPRESSION: Improved aeration of the left upper lobe with persistent bilateral patchy opacities within the right mid and bilateral lower lungs may reflect some combination of pneumonia, atelectasis and/or edema. Electronically Signed: Sintia Callahan MD at 13:02 EST , Physical Exam Const alert and no apparent distress General Appearance: cooperative HEENT normocephalic, head/scalp atraumatic and moist oral mucous membranes Eyes PERRL, EOMs intact bilaterally and conjunctivae normal Neck supple General: trachea midline Chest inspection of chest normal Resp Auscultation: diminished lung sounds; Negative for rales, rhonchi or wheezes Cardio regular rate and regular rhythm GI normal to inspection, nondistended, normoactive bowel sounds Extremity no clubbing, cyanosis or edema Skin no rashes or lesions noted Neuro CN's II-XII intact bilaterally, moves all extremities and no focal motor deficits Psych Mood & Affect: flat affect Charges/Coding Visit Charges Inpatient E&M: 76032 Subs Hosp L2
[2024-02-23 11:22] LABS: Absolute Lymphocyte Count 1.11 X10^3/uL (0.83-4.51); Absolute Neutrophil Count 11.4 X10^3/uL (2.0-7.7); Basophil# 0.04 X10^3/uL; Basophil% 0.3 % (0-1); Eosinophil# 0.08 X10^3/uL; Eosinophils% 0.6 % (0-5); Hematocrit 36.2 % (37-47); Hemoglobin 12.1 g/dL (12.0-15.0); Lymphocyte # 1.11 X10^3/ul (0.83-4.51); Lymphocyte % 8.5 % (19-41); Mean Corp Hgb Conc 33.4 g/dL (32-36); Mean Corpuscular Hgb 30.3 pg (27.0-32.0); Mean Corpuscular Volume 90.5 fL (81-99); Mean Platelet Vol. 9.9 fl (6.2-12.0); Monocyte# 0.31 X10^3/uL; Monocyte% 2.4 % (0-10); NRBC Flagged by Analyzer 0 % (0-5); Neutrophil # 11.37 X10^3/uL (2.7-7.7); Neutrophil % 86.8 % (47-70); Platelet Count 391 K/mm3 (150-450); RBC Distribution Width CV 13.4 % (11.6-14.6); RBC Distribution Width SD 44.7 fl (35.1-43.9); White Blood Count 13.1 K/mm3 (4.4-11.0)
[2024-02-23 11:47] LABS: Anion Gap 6 (5-15); BUN 27 mg/dL (7-18); Calcium,Total 8.6 mg/dL (8.5-10.1); Chloride 99 mmol/L (98-107); Creatinine, Serum 0.75 mg/dL (0.55-1.02); EST Glomerular Filtration Rate 79 mL/min (>60); Est Glom Filt Rate - Afr Amer 96 mL/min (>60); Estimated Creatinine Clearance 52.34 ml/min; Glucose 190 mg/dL (74-106); Potassium 3.3 mmol/L (3.5-5.1); Sodium Level 137 mmol/L (136-145)
[2024-02-23 11:47] LABS: Bedside Glucose 188 mg/dL (74-106)
--- NOTE | 2024-02-23 12:11 | CASEMGMT ---
Social Work- SW participated in interdisciplinary rounds on pt. It is reported that pt dtr is coming to stay with pt to assist pt at home. Pt plans to have HHC at discharge. NO SW needs present at this time. NGOZI Sky
[2024-02-23 16:44] LABS: Bedside Glucose 148 mg/dL (74-106)
--- NOTE | 2024-02-23 18:14 | PN.HOSP_ITS ---
Reason for Visit Reason for Visit: Diagnoses Dehydration (02/15/24) Influenza due to other identified influenza virus with other respiratory manifestations (02/15/24) Pneumonia, unspecified organism (02/15/24) Acute respiratory failure with hypoxia (02/15/24) Subjective Subjective Patient was seen and examined today, she remains on supplemental oxygen at 6 L/min at this time. I talked briefly with her who is in the room at the time of my exam. Objective Data Objective Data Vital Signs: Vital Signs Temp Pulse Resp BP Pulse Ox O2 Del Method O2 Flow Rate 97.9 F 75 16 110/68 95 High Flow 6 02/23/24 16:00 02/23/24 16:00 02/23/24 16:00 02/23/24 16:00 02/23/24 16:00 02/23/24 16:00 02/23/24 16:00 FiO2 94 02/21/24 09:00 Oxygen Flow Rate (L/min) 6 Oxygen Delivery Method High Flow Weight: 72.62 kg Body Mass Index (BMI) 29.2 Intake & Output: Intake and Output for Last 24 Hours 02/21/24 02/22/24 02/23/24 23:59 23:59 23:59 Intake Total 700 / 700 50 / 400 500 / 500 Output Total 875 / 875 1425 / 2025 600 / 600 Balance -175 / -175 -1375 / -1625 -100 / -100 Lab / Micro Data 02/23/24 11:15 02/23/24 11:15 Labs: Laboratory Results - last 24 hr 02/22/24 21:55: POC Glucose 71 L 02/22/24 22:52: POC Glucose 69 L 02/22/24 23:09: POC Glucose 78 02/23/24 05:18: POC Glucose 84 02/23/24 11:15: WBC 13.1 H, RBC 4.00 L, Hgb 12.1, Hct 36.2 L, MCV 90.5, MCH 30.3, MCHC 33.4, RDW Std Deviation 44.7 H, RDW Coeff of Rojas 13.4, Plt Count 391, MPV 9.9, Immature Gran % (Auto) 1.400 H, Neut % (Auto) 86.8 H, Lymph % (Auto) 8.5 L, [place] % (Auto) 2.4, Eos % (Auto) 0.6, Baso % (Auto) 0.3, Absolute Neuts (auto) 11.4 H, Absolute Lymphs (auto) 1.11, Nucleated RBC % 0, Sodium 137, P otassium 3.3 L, Chloride 99, Carbon Dioxide 32.0, Anion Gap 6, BUN 27 H, Creatinine 0.75, Estim Creat Clear Calc 52.34, Est GFR (MDRD) Af Amer 96, Est GFR (MDRD) Non-Af 79, BUN/Creatinine Ratio 36.0 H, Glucose 190 H, Calcium 8.6 02/23/24 11:29: POC Glucose 188 H 02/23/24 16:25: POC Glucose 148 H Micro: Microbiology 02/15/24 05:11 Blood Culture (Wb) - Anticubital Right Blood Culture - Final No growth in 5 days. 02/15/24 05:18 Blood Culture (Wb) - Right Hand Blood Culture - Final No growth in 5 days. 02/16/24 19:15 Sputum, Induced/Lukens Gram Stain - Final 02/16/24 19:15 Sputum, Induced/Lukens Respiratory Culture - Final Mixed normal respiratory jade. No Streptococcus pneumoniae, beta-hemolytic Streptococcus or Staphylococcus aureus isolated. 02/15/24 08:50 Sputum, Expectorated/Coughed Gram Stain - Final 02/15/24 08:50 Sputum, Expectorated/Coughed Respiratory Culture - Final Streptococcus pneumoniae Staphylococcus aureus 02/15/24 11:50 Urine, Clean Catch Urine Culture - Final Culture exhibits no growth. 02/15/24 11:50 Urine, Random Legionella Antigen - Final 02/15/24 11:50 Urine, Random Streptococcus pneumoniae Antigen (M - Final 02/15/24 05:04 Mucosa - Nose SARS-CoV-2, Influenza & RSV (PCR) - Final Influenzae A Physical Exam Narrative alert and no apparent distress General Appearance: cooperative, well kempt and well developed Orientation / Consciousness: awake, oriented to person and oriented to place HEENT normocephalic, head/scalp atraumatic and moist oral mucous membranes Eyes PERRL, EOMs intact bilaterally and conjunctivae normal Neck supple, no JVD, thyroid normal and no carotid bruits General: trachea midline Resp normal respiratory effort, no retractions, no use of accessory muscles and clear to auscultation bilaterally Auscultation: Negative for rales, rhonchi or wheezes Cardio regular rate, regular rhythm, S1 normal heart sound, S2 normal heart sound, no murmurs, no rub and no gallops GI normal to inspection, nondistended, normoactive bowel sounds, soft to palpation, non-tender and non-distended Extremity no clubbing, cyanosis or edema Skin no rashes or lesions noted General Skin Exam: no breakdown Neuro CN's II-XII intact bilaterally, moves all extremities, no focal motor deficits and no sensory deficits noted Sensorium / Orientation: awake, alert, oriented to person and oriented to place Speech: speech normal Psych affect normal Assessment & Plan Assessment/Plan (1) Pneumonia: (2) Acute respiratory failure with hypoxia: PLAN: Plan 1. Acute hypoxic respiratory failure secondary to influenza A with secondary bacterial infection-patient will remain on her present antibiotics, sputum culture is growing out Staph aureus and alphahemolytic strep. Patient is on nasal cannula oxygen at this time. #2 sepsis secondary to bacterial pneumonia and influenza A-patient completed Tamiflu, patient has completed 7 days of antibiotics, I will stop her Rocephin #3 type 2 diabetes-patient's blood sugars will be monitored, sliding scale insulin will be administered as needed #4 coronary artery disease-this appears stable at this time #5 elevated troponin secondary to demand ischemia-complicates care, management, recovery, and prognosis #6 hypokalemia-patient will receive supplemental potassium today Total clinical time spent by myself addressing the patient's medical issues, reviewing all of her data, and collaborating with patient's care team: 35 minutes Charges/Coding Visit Charges Inpatient E&M: 99121 Subs Hosp L2
[2024-02-23] MEDS: Potassium Chloride Oral Tablet 20 MEQ 40 MEQ PO (19:02)
[2024-02-23 21:35] LABS: Bedside Glucose 111 mg/dL (74-106)
[2024-02-24] VITALS (10 sets, daily range): BP systolic 103–129; BP diastolic 59–72; PULSE 75–98; RESP 16–24; TEMP 36.1–36.7; O2SAT 92–98; BMI 28.8
[2024-02-24] MEDS: Ipratropium/Albuterol Sulfate 3 ML AMPUL.NEB INHALATION ×4 (01:40→19:32)
[2024-02-24] MEDS: Insulin Glargine-YFGN 100 UNIT/ML Pen 50 UNIT SC (10:31)
[2024-02-24] MEDS: Aspirin 81 MG TAB.CHEW GT (10:31)
[2024-02-24] MEDS: Enoxaparin 40 MG/0.4 ML Syringe SC (10:32)
[2024-02-24] MEDS: Senna Tablet 1 TABLET GT (10:32)
[2024-02-24 10:53] LABS: Bedside Glucose 147 mg/dL (74-106)
[2024-02-24] MEDS: Insulin Lispro 100 UNIT/ML INSULN.PEN SC (14:49)
[2024-02-24 15:09] LABS: Bedside Glucose 209 mg/dL (74-106)
--- NOTE | 2024-02-24 18:03 | PCM.PN.HOSP ---
Reason for Visit Reason for Visit: Diagnoses Dehydration (02/15/24) Influenza due to other identified influenza virus with other respiratory manifestations (02/15/24) Pneumonia, unspecified organism (02/15/24) Acute respiratory failure with hypoxia (02/15/24) Subjective Subjective Patient was seen and examined today, her was in the room at the time of my examination, the would prefer to take her home when she is discharged from the hospital rather than the patient going to an extended care facility. Patient will most probably need oxygen set up at home. Objective Data Objective Data Vital Signs: Vital Signs Temp Pulse Resp BP Pulse Ox O2 Del Method O2 Flow Rate 97.2 F L 95 16 119/61 96 Nasal Cannula 3 02/24/24 14:30 02/24/24 14:30 02/24/24 14:30 02/24/24 14:30 02/24/24 14:30 02/24/24 14:30 02/24/24 14:30 FiO2 94 02/21/24 09:00 Oxygen Flow Rate (L/min) 3 Oxygen Delivery Method Nasal Cannula Weight: 71.395 kg Body Mass Index (BMI) 28.8 Intake & Output: Intake and Output for Last 24 Hours 02/22/24 02/23/24 02/24/24 23:59 23:59 23:59 Intake Total 50 / 400 500 / 500 Output Total 1425 / 2025 600 / 600 Balance -1375 / -1625 -100 / -100 Lab / Micro Data 02/23/24 11:15 02/23/24 11:15 Labs: Laboratory Results - last 24 hr 02/23/24 21:11: POC Glucose 111 H 02/24/24 10:30: POC Glucose 147 H 02/24/24 14:48: POC Glucose 209 H Micro: Microbiology 02/15/24 05:11 Blood Culture (Wb) - Anticubital Right Blood Culture - Final No growth in 5 days. 02/15/24 05:18 Blood Culture (Wb) - Right Hand Blood Culture - Final No growth in 5 days. 02/16/24 19:15 Sputum, Induced/Lukens Gram Stain - Final 02/16/24 19:15 Sputum, Induced/Lukens Respiratory Culture - Final Mixed normal respiratory jade. No Streptococcus pneumoniae, beta-hemolytic Streptococcus or Staphylococcus aureus isolated. 02/15/24 08:50 Sputum, Expectorated/Coughed Gram Stain - Final 02/15/24 08:50 Sputum, Expectorated/Coughed Respiratory Culture - Final Streptococcus pneumoniae Staphylococcus aureus 02/15/24 11:50 Urine, Clean Catch Urine Culture - Final Culture exhibits no growth. 02/15/24 11:50 Urine, Random Legionella Antigen - Final 02/15/24 11:50 Urine, Random Streptococcus pneumoniae Antigen (M - Final 02/15/24 05:04 Mucosa - Nose SARS-CoV-2, Influenza & RSV (PCR) - Final Influenzae A Physical Exam Narrative alert and no apparent distress General Appearance: cooperative, well kempt and well developed Orientation / Consciousness: awake, oriented to person and oriented to place HEENT normocephalic, head/scalp atraumatic and moist oral mucous membranes Eyes PERRL, EOMs intact bilaterally and conjunctivae normal Neck supple, no JVD, thyroid normal and no carotid bruits General: trachea midline Resp normal respiratory effort, no retractions, no use of accessory muscles and clear to auscultation bilaterally Auscultation: Negative for rales, rhonchi or wheezes Cardio regular rate, regular rhythm, S1 normal heart sound, S2 normal heart sound, no murmurs, no rub and no gallops GI normal to inspection, nondistended, normoactive bowel sounds, soft to palpation, non-tender and non-distended Extremity no clubbing, cyanosis or edema Skin no rashes or lesions noted General Skin Exam: no breakdown Neuro CN's II-XII intact bilaterally, moves all extremities, no focal motor deficits and no sensory deficits noted Sensorium / Orientation: awake, alert, oriented to person and oriented to place Speech: speech normal Psych affect normal Assessment & Plan Assessment/Plan (1) Pneumonia: (2) Acute respiratory failure with hypoxia: PLAN: Plan 1. Acute hypoxic respiratory failure secondary to influenza A with secondary bacterial infection-patient finished her antibiotic course, she remains on nasal cannula oxygen #2 sepsis secondary to bacterial pneumonia and influenza A-patient completed Tamiflu, patient has completed 7 days of antibiotics #3 type 2 diabetes-patient's blood sugars will be monitored, sliding scale insulin will be administered as needed #4 coronary artery disease-this appears stable at this time #5 elevated troponin secondary to demand ischemia-complicates care, management, recovery, and prognosis #6 hypokalemia-I will recheck the patient's potassium tomorrow Total clinical time spent by myself addressing the patient's medical issues, reviewing all of her data, and collaborating with patient's care team: 35 minutes Charges/Coding Visit Charges Inpatient E&M: 95524 Subs Hosp L2
--- NOTE | 2024-02-24 20:50 | CPS ---
Patient refused PAP therapy for night time use.
[2024-02-24] MEDS: Menthol/Lanolin/Calamine/Znox 113 GM Tube 1 APPLIC TOPICAL (21:15)
[2024-02-24 21:37] LABS: Bedside Glucose 132 mg/dL (74-106)
[2024-02-25 02:00] VITALS: BP 123/68; PULSE 90; RESP 15; TEMP 36.8; O2SAT 94
[2024-02-25 02:23] VITALS: PULSE 85; RESP 20
[2024-02-25] MEDS: Ipratropium/Albuterol Sulfate 3 ML AMPUL.NEB INHALATION ×3 (02:25→13:04)
[2024-02-25 04:23] LABS: Anion Gap 5 (5-15); BUN 18 mg/dL (7-18); BUN/Creat Ratio 29.5 RATIO (10-20); Calcium,Total 8.9 mg/dL (8.5-10.1); Chloride 101 mmol/L (98-107); Creatinine, Serum 0.61 mg/dL (0.55-1.02); EST Glomerular Filtration Rate 100 mL/min (>60); Est Glom Filt Rate - Afr Amer 121 mL/min (>60); Glucose 89 mg/dL (74-106); Potassium 3.9 mmol/L (3.5-5.1); Sodium Level 136 mmol/L (136-145)
[2024-02-25 04:25] VITALS: BMI 28.8
[2024-02-25 06:53] VITALS: PULSE 85; RESP 18; O2SAT 93
[2024-02-25 08:00] VITALS: BP 137/68; PULSE 91; RESP 16; TEMP 36.6; O2SAT 96
[2024-02-25] MEDS: Insulin Glargine-YFGN 100 UNIT/ML Pen 50 UNIT SC (08:21)
[2024-02-25] MEDS: Aspirin 81 MG TAB.CHEW GT (08:21)
[2024-02-25] MEDS: Enoxaparin 40 MG/0.4 ML Syringe SC (08:21)
[2024-02-25] MEDS: Senna Tablet 1 TABLET GT (08:22)
[2024-02-25 09:39] VITALS: O2SAT 84; O2SAT 92; O2SAT 95
[2024-02-25 11:50] LABS: Bedside Glucose 130 mg/dL (74-106)
[2024-02-25 13:05] VITALS: PULSE 87; RESP 18
--- NOTE | 2024-02-25 14:23 | PCM.HOSP.N ---
Hospitalist Note Oxygen testing reviewed, patient is ambulatory in the home and community and requires home oxygen with portability
--- NOTE | 2024-02-25 14:59 | DCINST_ITS ---
Discharge Instructions Diet Discharge Diet: No restrictions DC O2, CPAP, BIPAP needs RN Home O2 Qualification: Home O2 Qualification: Is the patient on home oxygen No 02/25/24 09:39 Home O2 Qualification: AT REST 1- Pulse Ox at rest 84 02/25/24 09:39 2- Pulse Ox at rest 95 02/25/24 09:39 2- Oxygen Flow Rate at rest 3 02/25/24 09:39 Home O2 Qualification: WITH AMBULATION 1- Pulse Ox with ambulation 92 02/25/24 09:39 1- Oxygen Flow Rate with 3 02/25/24 09:39 ambulation Home O2 Discharge instructions: Yes Type of respiratory needs?: Oxygen Oxygen frequency: Continuous Continuous oxygen liters per minute: 3 L Dressing / Incision Discharge Activity: Return to Normal Activity Weight Bearing Status: Full weight bearing Follow Up Care Test Results: Test results from this visit will be discussed in further detail at your follow- up appointment, if applicable. Discharge Plan Admission Admit Date/Time: 02/15/24 07:40 Primary Reason for Your Visit: Respiratory failure, influenza A Attending Provider: Lior Nevarez Primary Care Provider: Holland Recio Consulting Providers: Desiree Whitaker Discharge Orders/Prescriptions Prescriptions: New glimepiride 2 mg tablet 2 mg PO BID Qty: 60 0RF metformin 500 mg tablet 500 mg PO BID Qty: 120 0RF Rx Instructions: 1 twice a day for 10 days, then 2 twice a day thereafter-watch for diarrhea and abdominal cramping with his medication, if this happens, reduce the dose to 500 mg twice a day Continued BLOOD SUGAR HARMONY 1 tab PO 1XD Rx Instructions: HERBAL SUPPLEMENT aspirin 81 mg tablet,chewable 1 tab PO DAILY Discontinued glimepiride 2 mg tablet 2 mg PO BID Rx Instructions: 1 TAB WITH BREAKFAST, 1/2 TAB AT DINNER No Action metformin 500 mg tablet 500 mg PO DAILY Referrals / Follow Up: Holland Recio DO [Primary Care Provider] - Within 2 Weeks Disposition Disposition (needs filled in before D/C Order can be placed): Home, Self Care
--- NOTE | 2024-02-25 15:31 | DS.PCM_ITS ---
Providers Date of Admission: 02/15/24 Date of Discharge: 02/25/24 Primary Care Physician: Dr. Holland Recio, Consultations 02/16/24 18:39 Consult: Pin Or Clip Fastener / Pulmonary Medicine Routine Consulting Provider: Intensivists/Pulmonary Med Reason for Consult: acute hypoxic respiratory failure due to influenza EMERGENT Consult: No MD Notified: Yes Date Notified: 02/17/24 Time Notified: 06:03 Method of Notification: Text Reason For Visit: HYPOXIA, INFLUENZA INFECTION, PNEUMONIA Diagnosis Discharge Diagnosis (1) Pneumonia: Status: Acute Code(s): J18.9 - Pneumonia, unspecified organism (2) Acute respiratory failure with hypoxia: Status: Acute Code(s): J96.01 - Acute respiratory failure with hypoxia Plan 1. Acute hypoxic respiratory failure secondary to influenza A with secondary bacterial infection-patient finished her antibiotic course, she remains on nasal cannula oxygen #2 sepsis secondary to bacterial pneumonia and influenza A-patient completed Tamiflu, patient has completed 7 days of antibiotics #3 type 2 diabetes-patient's blood sugars will be monitored, sliding scale insulin will be administered as needed #4 coronary artery disease-this appears stable at this time #5 elevated troponin secondary to demand ischemia-complicates care, management, recovery, and prognosis #6 hypokalemia-I will recheck the patient's potassium tomorrow Total clinical time spent by myself addressing the patient's medical issues, reviewing all of her data, and collaborating with patient's care team: 35 minutes Medications at Discharge Home Medications BLOOD SUGAR HARMONY 1 tab PO 1XD supplement 01/02/23 metformin 500 mg tablet 500 mg PO DAILY 01/02/23 aspirin 81 mg chewable tablet 1 tab PO DAILY 02/15/24 glimepiride 2 mg tablet 2 mg PO BID #60 tabs 02/25/24 metformin 500 mg tablet 500 mg PO BID #120 tabs 02/25/24 Hospital Course Operations None Procedures Intubation Summary of Care Provided Minutes Spent on Discharge: 31 Hospital Course: This 79-year-old white female was seen in the emergency room at [facility] with generalized weakness and cough, many family members that had the flu that had been around her. Patient developed a cough with sputum production and decreased appetite. Workup in the emergency room revealed a slightly elevated white blood cell count of 12.1, creatinine was 1.27 and lactic acid was elevated at 3. Patient was noted to be hypoxic on room air. Chest x- ray showed a right sided pulmonary infiltrate as well as a left retrocardiac lung base infiltrate, patient was positive for influenza A PCR, patient received IV fluids and DuoNeb and Rocephin and Zithromax were given. Patient was admitted to [facility], she subsequently developed respiratory distress and difficulty maintaining an appropriate airway, patient was intubated and transferred to the ICU where she was seen by critical care. Sputum cultures positive for strep pneumoniae and Staph aureus which was oxacillin sensitive. Patient improved slowly in the ICU and it took several days to extubate the patient. On 02/25/2024, patient was seen and examined: On examination she appeared in good health and spirits, she does not appear to be in any distress. Vital signs as documented. Skin warm and dry and without overt rashes. Neck without JVD, thyroid appears normal, trachea is midline, neck is supple. Lungs clear, normal air movement was noted. Heart exam notable for regular rhythm, normal sounds and absence of murmurs, rubs or gallops. Abdomen unremarkable and without evidence of organomegaly, masses, or abdominal aortic enlargement, bowel sounds are present in all 4 quadrants, no abdominal tenderness was noted. Extremities nonedematous, no cyanosis was noted, no clubbing was noted. Neuro: Cranial nerves II through XII are grossly intact, no focal motor deficits were noted, sensation to light touch and pinprick is intact, motor exam 5/5 throughout. Psych: Patient is alert and oriented x3, she does not appear anxious or depressed, she does not appear agitated. Patient required set up of outpatient oxygen at the time of discharge on 02/25/2024, she was stable on that date. Weight / BMI Weight Weight: 71.622 kg Body Mass Index (BMI) 28.8 ABG / Lab / Microbiology Data 02/23/24 11:15 02/25/24 03:21 Laboratory: Laboratory Results - last 24 hr 02/24/24 21:12: POC Glucose 132 H 02/25/24 03:21: Sodium 136, Potassium 3.9, Chloride 101, Carbon Dioxide 30.0, Anion Gap 5, BUN 18, Creatinine 0.61, Estim Creat Clear Calc 51.90, Est GFR (MDRD) Af Amer 121, Est GFR (MDRD) Non-Af 100, BUN/Creatinine Ratio 29.5 H, Glucose 89, Calcium 8.9 02/25/24 11:29: POC Glucose 130 H Microbiology: Microbiology 02/15/24 05:11 Blood Culture (Wb) - Anticubital Right Blood Culture - Final No growth in 5 days. 02/15/24 05:18 Blood Culture (Wb) - Right Hand Blood Culture - Final No growth in 5 days. 02/16/24 19:15 Sputum, Induced/Lukens Gram Stain - Final 02/16/24 19:15 Sputum, Induced/Lukens Respiratory Culture - Final Mixed normal respiratory jade. No Streptococcus pneumoniae, beta-hemolytic Streptococcus or Staphylococcus aureus isolated. 02/15/24 08:50 Sputum, Expectorated/Coughed Gram Stain - Final 02/15/24 08:50 Sputum, Expectorated/Coughed Respiratory Culture - Final Streptococcus pneumoniae Staphylococcus aureus 02/15/24 11:50 Urine, Clean Catch Urine Culture - Final Culture exhibits no growth. 02/15/24 11:50 Urine, Random Legionella Antigen - Final 02/15/24 11:50 Urine, Random Streptococcus pneumoniae Antigen (M - Final 02/15/24 05:04 Mucosa - Nose SARS-CoV-2, Influenza & RSV (PCR) - Final Influenzae A D/C Instructions Discharge Diet: No restrictions Weight Bearing Status: Full weight bearing DC O2, CPAP, BIPAP Needs RN Home O2 Qualification: Home O2 Qualification: Is the patient on home oxygen No 02/25/24 09:39 Home O2 Qualification: AT REST 1- Pulse Ox at rest 84 02/25/24 09:39 2- Pulse Ox at rest 95 02/25/24 09:39 2- Oxygen Flow Rate at rest 3 02/25/24 09:39 Home O2 Qualification: WITH AMBULATION 1- Pulse Ox with ambulation 92 02/25/24 09:39 1- Oxygen Flow Rate with 3 02/25/24 09:39 ambulation PSN CPAP & BiPAP: BiPAP & CPAP Settings per PSN Mode BiPAP 02/21/24 04:44 Bipap Delivery Device Face Mask 02/21/24 04:44 BiPAP Inspiratory Pressure 12 02/21/24 04:44 BiPAP Expiratory Pressure 6 02/21/24 04:44 BiPAP Rate 12 02/21/24 04:44 Fraction of Inspired Oxygen ( 94 02/21/24 09:00 FIO2) Home O2 Discharge instructions: Yes Type of respiratory needs?: Oxygen Oxygen frequency: Continuous Continuous oxygen liters per minute: 3 L DC home with Oxygen: Yes Home O2 MD Review: I have reviewed the oxygen testing, and the patient qualifies for home oxygen equipment and portability. The patient is mobile in the home and the community. Meaningful Use Info Meaningful Use Meaningful Use Diagnoses (Choose all that apply): None applicable Ischemic Stroke Statin Dosing Therapy Reference: STATIN DOSE THERAPY REFERENCE: * Patients > 75 years receive moderate or high dose statin therapy. * Patients 75 years or YOUNGER should receive HIGH intensity statin dose unless contraindicated. You will be required to document reason for non-treatment if statin daily dose does not meet guidelines. HIGH DOSE STATIN THERAPY DAILY Atorvastatin > than or = to 40 mg Rosuvastatin > than or = to 20 mg Amlodipine + Atorvastatin > than or = to 2.5/40 mg Ezetimibe + Simvastatin 10/80 mg Simvastatin 80mg Discharge Plan Admission Admit Date/Time: 02/15/24 07:40 Primary Reason for Your Visit: Respiratory failure, influenza A Attending Provider: Lior Nevarez Primary Care Provider: Holland Recio Consulting Providers: Desiree Whitaker Discharge Orders/Prescriptions Prescriptions: New glimepiride 2 mg tablet 2 mg PO BID Qty: 60 0RF metformin 500 mg tablet 500 mg PO BID Qty: 120 0RF Rx Instructions: 1 twice a day for 10 days, then 2 twice a day thereafter-watch for diarrhea and abdominal cramping with his medication, if this happens, reduce the dose to 500 mg twice a day Continued BLOOD SUGAR HARMONY 1 tab PO 1XD Rx Instructions: HERBAL SUPPLEMENT aspirin 81 mg tablet,chewable 1 tab PO DAILY Discontinued glimepiride 2 mg tablet 2 mg PO BID Rx Instructions: 1 TAB WITH BREAKFAST, 1/2 TAB AT DINNER No Action metformin 500 mg tablet 500 mg PO DAILY Referrals / Follow Up: Holland Recio DO [Primary Care Provider] - Within 2 Weeks Disposition Disposition (needs filled in before D/C Order can be placed): Home, Self Care Charges/Coding Visit Charges Inpatient E&M: 36515 Disch Hosp >30min
--- NOTE | 2024-02-25 15:50 | CASEMGMT ---
Addendum entered by Allison Allen 02/25/24 17:14: SHWETA ROBERTSON received call back from Katharina at [facility] and they are able to accept with planned start of care for tomorrow. RN MARCELO updated patient regarding C setup. Patient and family had no further questions or concerns. RN MARCELO updated discharge plan. Original Note: Patient is discharging today. SHWETA ROBERTSON received script for home oxygen, prefers [employer], referral sent via [employer] and arranged for tank to be delivered to patient's room. RN CM called [facility] of discharge, per Katharina they were not aware that patient had been accepted on 02/17/24. SHWETA ROBERTSON updated Katharina at [facility] that patient is discharging today with new oxygen setup. Katharnia to review patient and call this RN CM back with acceptance. CM will continue to follow this patient and plan for a safe discharge.
== END 2024-02-25 16:50 | disposition home or self-care (01) | DRG 871 ==
LOC: ED 05:19 → PCU 08:07 → ICU 02-16 20:05
PROVIDERS: Hospitalist; Internal Medicine; Internal Medicine Critical Care Medicine; Admitting Provider Student in an Organized Health Care Education/Training Program; Emergency Provider Emergency Medicine; PCP Family Medicine; Visit Provider Internal Medicine
DX: A41.3 Sepsis due to Hemophilus influenzae (principal); J96.01 Acute respiratory failure with hypoxia; J10.08 Influenza due to other identified influenza virus with other specified pneumonia; J13 Pneumonia due to Streptococcus pneumoniae; E87.20 Acidosis, unspecified; I24.89 Other forms of acute ischemic heart disease; N17.9 Acute kidney failure, unspecified; E86.0 Dehydration; E11.59 Type 2 diabetes mellitus with other circulatory complications; I25.10 Atherosclerotic heart disease of native coronary artery without angina pectoris; E87.6 Hypokalemia; I25.84 Coronary atherosclerosis due to calcified coronary lesion; Z66 Do not resuscitate; Z79.84 Long term (current) use of oral hypoglycemic drugs; R79.89 Other specified abnormal findings of blood chemistry; Z79.82 Long term (current) use of aspirin; Z95.1 Presence of aortocoronary bypass graft
CPT/HCPCS: 31500; 31720; 36415; 36600; 70496; 70498; 71045; 71275; 80048; 80053; 80202; 81001; 82248; 82550; 82803; 82962; 83036; 83605; 83735; 83880; 84100; 84145; 84478; 84484; 85025; 85610; 85730; 87040; 87070; 87077; 87086; 87186; 87205; 87449; 87631; 92526; 92610; 93005; 94002; 94003; 94640; 94660; 94668; 94762; 97110; 97116; 97163; 97167; 97530; 97535; 97802; 97803; 99252; 99285; Q9967; A4216; G0463; J1940